=== PATIENT | female | born 1960 | race Caucasian/White ===

== ENCOUNTER 2016-03-25 13:16 | Outpatient (CLI) ==
[2012-09-14 05:37] VITALS: TEMP 97.6
[2016-01-18 21:50] VITALS: BMI 38.0
[2016-03-25 14:20] LABS: PROTHROMBIN TIME 62.9 SEC (9.3-11.0)
== END 2016-03-25 13:17 | disposition home or self-care (01) ==
LOC: LAB 13:16
PROVIDERS: ATTEND Internal Medicine
DX: Z51.81 Encounter for therapeutic drug level monitoring (principal); Z79.01 Long term (current) use of anticoagulants; D70.9 Neutropenia, unspecified; D69.6 Thrombocytopenia, unspecified; I82.403 Acute embolism and thrombosis of unspecified deep veins of lower extremity, bilateral
CPT/HCPCS: 36415; 85610

== ENCOUNTER 2016-03-27 15:24 | Outpatient (CLI) ==
[2012-09-14 05:37] VITALS: TEMP 97.6
[2016-01-18 21:50] VITALS: BMI 38.0
[2016-03-27 16:38] LABS: PROTHROMBIN TIME 67.2 SEC (9.3-11.0)
== END 2016-03-27 15:25 | disposition home or self-care (01) ==
LOC: LAB 15:24
DX: Z51.81 Encounter for therapeutic drug level monitoring (principal); Z79.01 Long term (current) use of anticoagulants
CPT/HCPCS: 36415; 85610

== ENCOUNTER 2016-03-27 17:56 | Emergency (ER) ==
[2016-03-27 18:04] VITALS: BP 113/62; TEMP 99.2; BMI 37.4
--- NOTE | 2016-03-27 19:08 | ED.PDOC ---
General ED Provider: Dr. ROMAN KEATING JR Chief Complaint: Non-specific Complaint Stated Complaint: has an elevated INR and no coumadin since [End]has elevated INR and having abdominal pain with headach[End]patient is complaining that her INR is elevated and she is having abdominal pain with headache and stated that her hemotlogist wants to be called and she is needing something for pain[ End ]99.2 84 20 97% 113/62 11/22 Time Seen by Physician: 19:24 Mode of Arrival: Walk-In Information Source: Patient Exam Limitations: No limitations Primary Care Provider: JAIDEN VINCENT Nursing and Triage Documentation Reviewed and Agree: No Review of Systems - Review Of Systems Constitutional: Reports: Malaise Eyes: Reports: No symptoms Ears, Nose, Mouth, Throat: Reports: Epistaxis Respiratory: Reports: No symptoms Cardiac: Reports: No symptoms GI: Reports: Abdominal pain, Nausea : Reports: No symptoms Musculoskeletal: Reports: Back pain, Other Skin: Reports: No symptoms Neurological: Reports: Other Endocrine: Reports: No symptoms Hematologic/Lymphatic: Reports: No symptoms All Other Systems: Other Past Medical History - Past Medical History Previously Healthy: No Endocrine: Reports: Dyslipidemia, Other (recurrent shingles, ) Cardiovascular: Reports: RI, Hypertension, CHF, A-Fib Respiratory: Reports: PE (pulmonay emboli) Hematological: Reports: Anemia, Other (PE on coumadine) Gastrointestinal: Reports: GERD Genitourinary: Reports: UTI (ecoli with sepsis), Kidney stones, CKD, Other ( ecoli with sepsis) Neuro/Psych: Reports: Migraine, Seizure, Anxiety, Other (recurrent shingles,) Musculoskeletal: Reports: Arthritis Cancer: Reports: None Last Menstrual Period: na Other Pertinent Past Medical History: pacer last week in [place] per her hx - Surgical History General Surgical History: Reports: Tubal ligation, , Cholecystectomy, Tonsillectomy, Pacemaker (pacemaker 04/24/15), Orthopedic (left lateral release left knee), Other (esophageal dilation, hemorrhoidectomy) - Family History Family History: Reports: Unknown - Social History Smoking Status: Never smoker Hx Substance Use: No Alcohol Screening: None - Immunizations Tetanus Shot up to Date: Yes Physical Exam - Physical Exam Appearance: Well-appearing Ill-appearing: Mild Pain Distress: Mild Eyes: CARLTON, EOMI, Conjunctiva clear ENT: Ears normal, Nose normal, Oropharynx normal Neck: Supple Respiratory: Airway patent, Breath sounds clear, Breath sounds equal, Respirations nonlabored Cardiovascular: RRR, Pulses normal, No rub, No murmur GI/: Soft, Tender (NONFOCAL NOT CONSISTENT WITH EXPECTED EXAM WITH GI BLEED- PATIENT REQUESTS EVALUATION DESPITE EXAM) Musculoskeletal: Normal strength, ROM intact, No edema, No calf tenderness Skin: Warm, Dry, Normal color Neurological: Sensation intact, Motor intact, Reflexes intact, Cranial nerves intact, Alert, Oriented Re-Evaluation - Re-Evaluation Time of Re-Evaluation: 19:15 (DR TIANA FINNEGAN MD [phone]) Status: Unchanged ([facility] ( WORKING WITH DR ESTRADA)REQUEST TAKE HER OFF TYLENOL REQUEST AQUAMEPHYTON AND RECHECK INR IN THE MORNING FAX TO [facility]) Critical Care Note - Critical Care Note Total Time (mins): 5 Course - Course Orders, Labs, Meds: Orders Category Date Time Status Phytonadione Inj [Vitamin K] MEDS 03/27/16 19:19 Discontinued 10 mg IM ONCE STA CT ABDOMEN/PELVIS WO CONTRAST Stat RADS 03/27/16 19:[address] HEAD W/O CONTRAST Stat RADS 03/27/16 18:58 Completed Medications Discontinued Medications Generic Name Dose Route Start Last Admin Trade Name Freq PRN Reason Stop Dose Admin Phytonadione 10 mg 03/27/16 19:19 Vitamin K IM 03/27/16 19:20 ONCE STA Vital Signs: Temp Pulse Resp BP Pulse Ox 03/27/16 17:59 99.2 F 84 20 113/62 97 Departure - Departure Time of Disposition: 19:59 Disposition: HOME SELF-CARE Discharge Problem: Anticoagulation excessive Instructions: Hypercoagulation (ED), Warfarin (By mouth) Condition: Good Pt referred to PMD for follow-up: Yes Additional Instructions: RETURN IF WORSENING BLEEDING GET REPEAT PROTIME IN MORNING- RESULTS TO DR HURTADO MAY USE OXYCODONE WITHOUT TYLENOL PRESCRIPTION FOR A FEW GIVEN- NEED TO FOLLOW UP WITH PAIN MANAGEMENT Prescriptions: Oxycodone HCl [Oxycodone] 5 mg PO Q6H PRN #14 tablet PRN Reason: Severe Pain Allergies/Adverse Reactions: Allergies aspirin Adverse Reaction (Verified 03/27/16 18:12) cephalexin monohydrate [From Keflex] Adverse Reaction (Verified 03/27/16 18:12) clarithromycin [From Biaxin] Adverse Reaction (Verified 03/27/16 18:12) ketorolac [From Toradol] Adverse Reaction (Verified 03/27/16 18:12) leflunomide [From Arava] Adverse Reaction (Verified 03/27/16 18:12) NSAIDS (Non-Steroidal Anti-Inflamma Adverse Reaction (Verified 03/27/16 18:12) Penicillins Adverse Reaction (Verified 03/27/16 18:12) radioactive dye for stress test Adverse Reaction (Uncoded 01/18/16 21:52) Home Medications: Ambulatory Orders Folic Acid 1 mg PO DAILY 08/07/13 Diazepam [Valium] 10 mg PO TID 09/25/13 Sucralfate [Carafate] 1 gm PO QID PRN 06/22/14 Clonidine HCl [Catapres] 0.1 mg PO BID PRN 08/17/14 Lisinopril [Zestril] 40 mg PO BID 11/03/14 Metoprolol Tartrate [Lopressor] 25 mg PO BID 12/11/14 Ferrous Sulfate [Iron] 325 mg PO BID 05/24/15 Tizanidine HCl [Zanaflex] 2 mg PO QID PRN 05/24/15 Furosemide [Lasix Tab] 40 mg PO BID PRN 10/02/15 Warfarin Sodium [Coumadin] 10 mg PO DAILY 12/19/15 Methylprednisolone [Medrol Dosepak] 4 mg PO DIRECTED #1 pkg 01/09/16 Oxycodone HCl [Oxycodone] 5 mg PO Q6H PRN #14 tablet 03/27/16
[2016-03-27] MEDS ORDERED: OXYCODONE PO PRN (19:15)
[2016-03-27] MEDS ORDERED: VITAMIN K IM STA (19:19)
--- NOTE | 2016-03-27 19:45 | CT ---
EXAM: CT Head HISTORY: Headache, elevated INR COMPARISON: 01/09/2016 TECHNIQUE: CT head performed without contrast FINDINGS: There is no mass effect, midline shift, or intracranial hemmorhage. Obrien white different iation is preserved. There is no extra-axial collection. There is stable small calcified left fron efrem meningioma measuring 0.8 cm. The ventricles, sulci, and basal cisterns are patent and symmetric. There is no depressed calvarial fracture. The mastoid air cells are clear. The visualized paranas al sinuses are clear. IMPRESSION: 1. No acute intracranial abnormality. 2. Stable small calcified left frontal meningioma
--- NOTE | 2016-03-27 19:55 | CT ---
EXAM: CT abdomen pelvis without contrast HISTORY: Abdominal pain COMPARISON: 12/22/2015 TECHNIQUE: CT abdomen pelvis performed without intravenous contrast. Coronal and sagittal reformat roge images obtained. FINDINGS: Lung bases clear. No free air. No acute abnormalities of the bones. Evaluation organ p arenchyma limited without contrast. There is a cardiac pacer that is incompletely imaged. Liver is enlarged. Liver otherwise unremarkable. Patient status post cholecystectomy. Pancreas appears no rmal. Spleen appears normal. Adrenals appear normal. No hydronephrosis or nephrolithiasis. Stable suspected sub centimeter hyperdense cyst right superior kidney, grossly unchanged from 2013.. No c alculi visualized in the normal course of the ureters. Bladder decompressed and poorly evaluated. Patient status post hysterectomy. Aorta normal in caliber. No lymphadenopathy. Small fat-contain ing hernia. Stomach appears normal. Small duodenal diverticulum. Appendix appears normal. Increas ed submucosal fat deposition in the right colon. Colonic diverticulosis. No inflammatory stranding in the abdomen or pelvis. IMPRESSION: 1. No acute inflammatory process identified in the abdomen pelvis. 2. Colonic diverticulosis. Small duodenal diverticulum. 3. Increased submucosal fat deposition in the colon, a finding be seen in sequela of remote infecti on or inflammation, such as inflammatory bowel disease. 4. Hepatomegaly. 5. Stable suspected hyperdense cyst right superior kidney.
[2016-03-27] MEDS ORDERED: OXYCODONE PO STA (20:06)
[2016-03-27] MEDS ORDERED: ZOFRAN 4 MG/2 ML IM STA (20:20)
[2016-03-27] MEDS ORDERED: DILAUDID 1 MG/ML SYRINGE IM STA (20:20)
== END 2016-03-27 21:00 | disposition home or self-care (01) ==
LOC: ED 17:56
DX: R79.1 Abnormal coagulation profile (principal); R10.9 Unspecified abdominal pain; R51 Headache; Z86.711 Personal history of pulmonary embolism; Z79.01 Long term (current) use of anticoagulants; Z51.81 Encounter for therapeutic drug level monitoring
CPT/HCPCS: 36415; 85610; 96372; 99283

== ENCOUNTER 2016-03-28 12:07 | Outpatient (CLI) ==
[2012-09-14 05:37] VITALS: TEMP 97.6
[2016-03-27 18:04] VITALS: BMI 37.4
== END 2016-03-28 12:08 | disposition home or self-care (01) ==
LOC: LAB 12:07
PROVIDERS: ATTEND Emergency Medicine
DX: Z51.81 Encounter for therapeutic drug level monitoring (principal); Z79.01 Long term (current) use of anticoagulants
CPT/HCPCS: 36415; 85610

== ENCOUNTER 2016-03-28 12:15 | Emergency (ER) ==
[2016-03-28 12:15] VITALS: BMI 37.4
[2016-03-28 12:33] VITALS: BP 114/72; TEMP 101.7
[2016-03-28] MEDS ORDERED: STADOL IM STA (12:41)
[2016-03-28] MEDS ORDERED: PHENERGAN 25 MG/ML VIAL IM STA (12:43)
--- NOTE | 2016-03-28 12:47 | ED.PDOC ---
General ED Provider: Dr. EVANGELISTA PATE-ER Chief Complaint: Rash Stated Complaint: juanita got shingles again Time Seen by Physician: 12:20 Mode of Arrival: Walk-In Information Source: Patient Exam Limitations: No limitations Primary Care Provider: JAIDEN VINCENT Nursing and Triage Documentation Reviewed and Agree: Yes Skin Complaint Exam - Skin Rash/Itching Complaint/Exam Onset/Duration: 36hrs Symptoms Are: Still present Initial Severity: Mild Current Severity: Moderate Location: scalp Potential Exposures: Reports: Unknown Aggravating: Reports: None Alleviating: Reports: None Associated Signs and Symptoms: Denies: Difficulty breathing, Fever, Chills Skin Findings: Present: Vesicles, Lesions Differential Diagnoses: Varicella Zoster Review of Systems - Review Of Systems Constitutional: Reports: No symptoms Eyes: Reports: No symptoms Ears, Nose, Mouth, Throat: Reports: No symptoms Respiratory: Reports: No symptoms Cardiac: Reports: No symptoms GI: Reports: No symptoms : Reports: No symptoms Musculoskeletal: Reports: No symptoms Skin: Reports: Lesions, Rash Neurological: Reports: No symptoms Endocrine: Reports: No symptoms Hematologic/Lymphatic: Reports: No symptoms All Other Systems: Reviewed and Negative Past Medical History - Past Medical History Previously Healthy: No Endocrine: Reports: Dyslipidemia, Other (recurrent shingles, ) Cardiovascular: Reports: [place], Hypertension, CHF, A-Fib Respiratory: Reports: PE (pulmonay emboli) Hematological: Reports: Anemia, Other (PE on coumadine) Gastrointestinal: Reports: GERD Genitourinary: Reports: UTI (ecoli with sepsis), Kidney stones, CKD, Other ( ecoli with sepsis) Neuro/Psych: Reports: Migraine, Seizure, Anxiety, Other (recurrent shingles,) Musculoskeletal: Reports: Arthritis Cancer: Reports: None Last Menstrual Period: n/a Other Pertinent Past Medical History: pacer last week in [place] per her hx - Surgical History General Surgical History: Reports: Tubal ligation, , Cholecystectomy, Tonsillectomy, Pacemaker (pacemaker 04/24/15), Orthopedic (left lateral release left knee), Other (esophageal dilation, hemorrhoidectomy) - Family History Family History: Reports: Unknown - Social History Smoking Status: Never smoker Hx Substance Use: No Alcohol Screening: None Lives: With family Physical Exam - Physical Exam Appearance: Well-appearing, No pain distress, Well-nourished Pain Distress: Moderate Eyes: CARLTON ENT: Ears normal, Nose normal, Oropharynx normal Neck: Supple Respiratory: Airway patent, Breath sounds clear, Breath sounds equal, Respirations nonlabored Cardiovascular: RRR, Pulses normal, No rub, No murmur GI/: Soft, Nontender, No masses, Bowel sounds normal, No Organomegaly Musculoskeletal: Normal strength, ROM intact, No edema, No calf tenderness Skin: Warm, Dry, Normal color Neurological: Sensation intact, Motor intact, Reflexes intact, Cranial nerves intact, Alert, Oriented Psychiatric: Affect appropriate, Mood appropriate Critical Care Note - Critical Care Note Total Time (mins): 0 Course - Course Orders, Labs, Meds: Orders Category Date Time Status Butorphanol Tartrate [Stadol] MEDS 03/28/16 12:41 Discontinued 2 mg IM ONCE STA Promethazine HCl [Phenergan 25 mg/ml Vial] MEDS 03/28/16 12:43 Discontinued 25 mg IM ONCE STA Medications Discontinued Medications Generic Name Dose Route Start Last Admin Trade Name Freq PRN Reason Stop Dose Admin Butorphanol Tartrate 2 mg 03/28/16 12:41 Stadol IM 03/28/16 12:42 ONCE STA Promethazine HCl 25 mg 03/28/16 12:43 Phenergan 25 Mg/Ml Vial IM 03/28/16 12:44 ONCE STA Vital Signs: Temp Pulse Resp BP Pulse Ox 03/28/16 12:16 101.7 F H 75 20 114/72 95 Departure - Departure Time of Disposition: 12:47 Disposition: HOME SELF-CARE Discharge Problem: Shingles Qualifiers: Herpes zoster complications: without complications Qualifier Code: (B02.9) Zoster without complications Instructions: Shingles (ED) Condition: Good Pt referred to PMD for follow-up: Yes Additional Instructions: take your antiviral and your pain meds at home--f/u wtih pcp Allergies/Adverse Reactions: Allergies aspirin Adverse Reaction (Verified 03/28/16 12:36) cephalexin monohydrate [From Keflex] Adverse Reaction (Verified 03/28/16 12:36) clarithromycin [From Biaxin] Adverse Reaction (Verified 03/28/16 12:36) ketorolac [From Toradol] Adverse Reaction (Verified 03/28/16 12:36) leflunomide [From Arava] Adverse Reaction (Verified 03/28/16 12:36) NSAIDS (Non-Steroidal Anti-Inflamma Adverse Reaction (Verified 03/28/16 12:36) Penicillins Adverse Reaction (Verified 03/28/16 12:36) radioactive dye for stress test Adverse Reaction (Uncoded 03/28/16 12:36) Home Medications: Ambulatory Orders Diazepam [Valium] 10 mg PO TID 09/25/13 Sucralfate [Carafate] 1 gm PO QID PRN 06/22/14 Clonidine HCl [Catapres] 0.1 mg PO BID PRN 08/17/14 Lisinopril [Zestril] 40 mg PO BID 11/03/14 Metoprolol Tartrate [Lopressor] 50 mg PO BID 12/11/14 Furosemide [Lasix Tab] 40 mg PO BID PRN 10/02/15 Warfarin Sodium [Coumadin] 10 mg PO DAILY 12/19/15 Oxycodone HCl [Oxycodone] 5 mg PO Q6H PRN #14 tablet 03/27/16 Disposition Discussed With: Patient
== END 2016-03-28 13:35 | disposition home or self-care (01) ==
LOC: ED 12:15
DX: B02.9 Zoster without complications (principal); Z51.81 Encounter for therapeutic drug level monitoring; Z79.01 Long term (current) use of anticoagulants
CPT/HCPCS: 36415; 85610; 96372; 99283

== ENCOUNTER 2016-03-29 14:51 | Outpatient (CLI) ==
[2012-09-14 05:37] VITALS: TEMP 97.6
[2016-03-28 12:15] VITALS: BMI 37.4
[2016-03-29 15:30] LABS: PROTHROMBIN TIME 15.2 SEC (9.3-11.0)
== END 2016-03-29 14:52 | disposition home or self-care (01) ==
LOC: LAB 14:51
PROVIDERS: ATTEND Emergency Medicine
DX: Z51.81 Encounter for therapeutic drug level monitoring (principal); Z79.01 Long term (current) use of anticoagulants
CPT/HCPCS: 36415; 85610

== ENCOUNTER 2016-03-29 15:19 | Emergency (ER) ==
[2016-03-29 15:20] VITALS: BMI 37.4
[2016-03-29 15:29] VITALS: BP 128/82; TEMP 97.2
--- NOTE | 2016-03-29 15:40 | ED.PDOC ---
General ED Provider: Dr. SAMI PAULSON Chief Complaint: Rash Stated Complaint: RASH Time Seen by Physician: 15:22 (SEEN WITH LIBY AT ALL TIMES ) Mode of Arrival: Walk-In Information Source: Patient Exam Limitations: No limitations Primary Care Provider: JAIDEN VINCENT Nursing and Triage Documentation Reviewed and Agree: Yes (HISTORY OF HZV WITH SAME DISTRIBUTION AND CHARACTER ) Skin Complaint Exam - Skin Rash/Itching Complaint/Exam Onset/Duration: RASH SCALP PAINFULL PATCHY HISTORY OF HZV Symptoms Are: Still present Initial Severity: Moderate Current Severity: Moderate Aggravating: Reports: None Alleviating: Reports: None Associated Signs and Symptoms: Denies: Difficulty breathing, Fever, Chills Related History: Similar episode Differential Diagnoses: Varicella Zoster Review of Systems - Review Of Systems Constitutional: Reports: No symptoms Eyes: Reports: No symptoms Ears, Nose, Mouth, Throat: Reports: No symptoms Respiratory: Reports: No symptoms Cardiac: Reports: No symptoms GI: Reports: No symptoms : Reports: No symptoms Musculoskeletal: Reports: No symptoms Skin: Reports: Rash (ONLY ON SCALP), Other Neurological: Reports: No symptoms Endocrine: Reports: No symptoms Hematologic/Lymphatic: Reports: No symptoms All Other Systems: Reviewed and Negative Past Medical History - Past Medical History Previously Healthy: No Endocrine: Reports: Dyslipidemia, Other (recurrent shingles, ) Cardiovascular: Reports: RI, Hypertension, CHF, A-Fib Respiratory: Reports: PE (pulmonay emboli) Hematological: Reports: Anemia, Other (PE on coumadine) Gastrointestinal: Reports: GERD Genitourinary: Reports: UTI (ecoli with sepsis), Kidney stones, CKD, Other ( ecoli with sepsis) Neuro/Psych: Reports: Migraine, Seizure, Anxiety, Other (recurrent shingles,) Musculoskeletal: Reports: Arthritis Cancer: Reports: None Last Menstrual Period: hysterectomy Other Pertinent Past Medical History: pacer last week in [place] per her hx - Surgical History General Surgical History: Reports: Tubal ligation, , Cholecystectomy, Tonsillectomy, Pacemaker (pacemaker 04/24/15), Orthopedic (left lateral release left knee), Other (esophageal dilation, hemorrhoidectomy) - Family History Family History: Reports: Unknown - Social History Smoking Status: Never smoker Hx Substance Use: (frequent ER visits) Alcohol Screening: None Physical Exam - Physical Exam Appearance: Well-appearing, No pain distress, Well-nourished Eyes: CARL[place], EOMI, Conjunctiva clear ENT: Ears normal, Nose normal, Oropharynx normal Respiratory: Airway patent, Breath sounds clear, Breath sounds equal, Respirations nonlabored Cardiovascular: RRR, Pulses normal, No rub, No murmur GI/: Soft, Nontender, No masses, Bowel sounds normal, No Organomegaly Musculoskeletal: Normal strength, ROM intact, No edema, No calf tenderness Skin: Warm, Dry (RASHY PATCHY MACULAR TENDER ) Neurological: Sensation intact, Motor intact, Reflexes intact, Cranial nerves intact, Alert, Oriented Psychiatric: Affect appropriate, Mood appropriate Critical Care Note - Critical Care Note Total Time (mins): 0 Course - Course Vital Signs: Temp Pulse Resp BP Pulse Ox 03/29/16 15:22 97.2 F L 96 H 20 128/82 96 Departure - Departure Time of Disposition: 15:40 Disposition: HOME SELF-CARE Discharge Problem: Varicella-zoster virus infection, Shingles Instructions: Shingles (ED) Condition: Good Pt referred to PMD for follow-up: No Additional Instructions: Please call your Family Physician as soon as possible to schedule a follow-up appointment. Allergies/Adverse Reactions: Allergies aspirin Adverse Reaction (Verified 03/29/16 15:29) cephalexin monohydrate [From Keflex] Adverse Reaction (Verified 03/29/16 15:29) clarithromycin [From Biaxin] Adverse Reaction (Verified 03/29/16 15:29) ketorolac [From Toradol] Adverse Reaction (Verified 03/29/16 15:29) leflunomide [From Arava] Adverse Reaction (Verified 03/29/16 15:29) NSAIDS (Non-Steroidal Anti-Inflamma Adverse Reaction (Verified 03/29/16 15:29) Penicillins Adverse Reaction (Verified 03/29/16 15:29) radioactive dye for stress test Adverse Reaction (Uncoded 03/29/16 15:29) Home Medications: Ambulatory Orders Diazepam [Valium] 10 mg PO TID 09/25/13 Sucralfate [Carafate] 1 gm PO QID PRN 06/22/14 Clonidine HCl [Catapres] 0.1 mg PO BID PRN 08/17/14 Lisinopril [Zestril] 40 mg PO BID 11/03/14 Metoprolol Tartrate [Lopressor] 50 mg PO BID 12/11/14 Furosemide [Lasix Tab] 40 mg PO BID PRN 10/02/15 Warfarin Sodium [Coumadin] 10 mg PO DAILY 12/19/15 Oxycodone HCl [Oxycodone] 5 mg PO Q6H PRN #14 tablet 03/27/16
== END 2016-03-29 15:50 | disposition home or self-care (01) ==
LOC: ED 15:19
DX: B02.9 Zoster without complications (principal); Z51.81 Encounter for therapeutic drug level monitoring; Z79.01 Long term (current) use of anticoagulants
CPT/HCPCS: 36415; 85610; 99283

== ENCOUNTER 2016-04-15 10:52 | Outpatient (CLI) ==
[2012-09-14 05:37] VITALS: TEMP 97.6
[2016-04-15 11:17] LABS: PROTHROMBIN TIME 18.2 SEC (9.3-11.0)
== END 2016-04-15 10:53 ==
LOC: LAB 10:52
PROVIDERS: ATTEND Nurse Practitioner Family
DX: Z51.81 Encounter for therapeutic drug level monitoring (principal); Z79.01 Long term (current) use of anticoagulants
CPT/HCPCS: 36415; 85610

== ENCOUNTER 2016-04-22 12:40 | Outpatient (CLI) ==
[2012-09-14 05:37] VITALS: TEMP 97.6
[2016-04-22 13:32] LABS: PROTHROMBIN TIME 41.5 SEC (9.3-11.0)
== END 2016-04-22 12:41 | disposition home or self-care (01) ==
LOC: LAB 12:40
PROVIDERS: ATTEND Nurse Practitioner Family
DX: Z51.81 Encounter for therapeutic drug level monitoring (principal); Z79.01 Long term (current) use of anticoagulants
CPT/HCPCS: 36415; 85610

== ENCOUNTER 2016-04-23 19:21 | Emergency (ER) ==
[2016-04-23 19:28] VITALS: BP 154/88; TEMP 98.8; BMI 39.2
[2016-04-23] MEDS ORDERED: PHENERGAN 25 MG/ML VIAL IM STA (19:35)
[2016-04-23] MEDS ORDERED: DILAUDID 1 MG/ML SYRINGE IM STA (19:35)
--- NOTE | 2016-04-23 19:38 | ED.PDOC ---
General ED Provider: Dr. EVANGELISTA PATE-ER Chief Complaint: Rash Stated Complaint: juanita got shingles--it hurts--percocet not helping me Time Seen by Physician: 19:25 Mode of Arrival: Walk-In Information Source: Patient Exam Limitations: No limitations Primary Care Provider: JAIDEN VINCENT Nursing and Triage Documentation Reviewed and Agree: Yes Skin Complaint Exam - Skin Rash/Itching Complaint/Exam Onset/Duration: 2 days Symptoms Are: Still present Initial Severity: Moderate Current Severity: Moderate Location: mid thoracic pain Potential Exposures: Reports: Unknown Prior Treatment: acyclovir Aggravating: Reports: None Alleviating: Reports: None Associated Signs and Symptoms: Denies: Difficulty breathing, Fever, Chills Skin Findings: Present: Vesicles Differential Diagnoses: Varicella Zoster, Other Review of Systems - Review Of Systems Constitutional: Reports: No symptoms Eyes: Reports: No symptoms Ears, Nose, Mouth, Throat: Reports: No symptoms Respiratory: Reports: No symptoms Cardiac: Reports: No symptoms GI: Reports: No symptoms : Reports: No symptoms Musculoskeletal: Reports: No symptoms Skin: Reports: Rash Neurological: Reports: No symptoms Endocrine: Reports: No symptoms Hematologic/Lymphatic: Reports: No symptoms All Other Systems: Reviewed and Negative Past Medical History - Past Medical History Previously Healthy: No Endocrine: Reports: Dyslipidemia, Other (recurrent shingles, ) Cardiovascular: Reports: [place], Hypertension, CHF, A-Fib Respiratory: Reports: PE (pulmonay emboli) Hematological: Reports: Anemia, Other (PE on coumadine) Gastrointestinal: Reports: GERD Genitourinary: Reports: UTI (ecoli with sepsis), Kidney stones, CKD, Other ( ecoli with sepsis) Neuro/Psych: Reports: Migraine, Seizure, Anxiety, Other (recurrent shingles,) Musculoskeletal: Reports: Arthritis Cancer: Reports: None Last Menstrual Period: TUBAL LIGATION Other Pertinent Past Medical History: pacer last week in [place] per her hx - Surgical History General Surgical History: Reports: Tubal ligation, , Cholecystectomy, Tonsillectomy, Pacemaker (pacemaker 04/24/15), Orthopedic (left lateral release left knee), Other (esophageal dilation, hemorrhoidectomy) - Family History Family History: Reports: Unknown - Social History Smoking Status: Never smoker Hx Substance Use: No (frequent ER visits) Alcohol Screening: None Lives: With family Physical Exam - Physical Exam Appearance: Well-appearing, No pain distress, Well-nourished Pain Distress: Moderate Eyes: [place], EOMI, Conjunctiva clear ENT: Ears normal, Nose normal, Oropharynx normal Neck: Supple Respiratory: Airway patent, Breath sounds clear, Breath sounds equal, Respirations nonlabored Cardiovascular: RRR, Pulses normal, No rub, No murmur GI/: Soft, Nontender, No masses, Bowel sounds normal, No Organomegaly Musculoskeletal: Normal strength, ROM intact, No edema, No calf tenderness Skin: Warm, Dry, Normal color Neurological: Sensation intact, Motor intact, Reflexes intact, Cranial nerves intact, Alert, Oriented Psychiatric: Affect appropriate, Mood appropriate Critical Care Note - Critical Care Note Total Time (mins): 0 Course - Course Orders, Labs, Meds: Orders Category Date Time Status Hydromorphone HCl [Dilaudid 1 mg/ml Syringe] MEDS 04/23/16 19:35 Stat 1 mg IM ONCE STA Promethazine HCl [Phenergan 25 mg/ml Vial] MEDS 04/23/16 19:35 Stat 25 mg IM ONCE STA Medications Generic Name Dose Route Start Last Admin Trade Name Freq PRN Reason Stop Dose Admin Hydromorphone HCl 1 mg 04/23/16 19:35 Dilaudid 1 Mg/Ml Syringe IM 04/23/16 19:36 ONCE STA Promethazine HCl 25 mg 04/23/16 19:35 Phenergan 25 Mg/Ml Vial IM 04/23/16 19:36 ONCE STA Vital Signs: Temp Pulse Resp BP Pulse Ox 04/23/16 19:23 98.8 F 81 16 154/88 H 97 Departure - Departure Time of Disposition: 19:37 Disposition: HOME SELF-CARE Discharge Problem: Herpes zoster Qualifiers: Herpes zoster complications: unspecified herpes zoster complication Qualifier Code: (B02.8) Zoster with other complications Instructions: Shingles (ED) Condition: Good Pt referred to PMD for follow-up: Yes Additional Instructions: f/u with pcp Allergies/Adverse Reactions: Allergies aspirin Adverse Reaction (Verified 04/23/16 19:28) cephalexin monohydrate [From Keflex] Adverse Reaction (Verified 04/23/16 19:28) clarithromycin [From Biaxin] Adverse Reaction (Verified 04/23/16 19:28) ketorolac [From Toradol] Adverse Reaction (Verified 04/23/16 19:28) leflunomide [From Arava] Adverse Reaction (Verified 04/23/16 19:28) NSAIDS (Non-Steroidal Anti-Inflamma Adverse Reaction (Verified 04/23/16 19:28) Penicillins Adverse Reaction (Verified 04/23/16 19:28) radioactive dye for stress test Adverse Reaction (Uncoded 04/23/16 19:28) Home Medications: Ambulatory Orders Diazepam [Valium] 10 mg PO TID 09/25/13 Clonidine HCl [Catapres] 0.1 mg PO BID PRN 08/17/14 Lisinopril [Zestril] 40 mg PO BID 11/03/14 Metoprolol Tartrate [Lopressor] 50 mg PO BID 12/11/14 Furosemide [Lasix Tab] 40 mg PO BID PRN 10/02/15 Warfarin Sodium [Coumadin] 10 mg PO DAILY 12/19/15 Oxycodone HCl [Oxycodone] 5 mg PO Q6H PRN #14 tablet 03/27/16 Disposition Discussed With: Patient
== END 2016-04-23 20:00 | disposition home or self-care (01) ==
LOC: ED 19:21
DX: B02.8 Zoster with other complications (principal); Z79.01 Long term (current) use of anticoagulants; Z79.899 Other long term (current) drug therapy
CPT/HCPCS: 96372; 99283

== ENCOUNTER 2016-04-29 20:18 | Emergency (ER) ==
[2016-04-29 20:25] VITALS: BP 157/87; TEMP 98.8; BMI 38.2
--- NOTE | 2016-04-29 21:20 | ED.PDOC ---
General ED Provider: Dr. JOSE TOLENTINO Chief Complaint: Rash Stated Complaint: Patient states she has chronic rash from shingles. Took more of her percoet now out. Getting a refill of prescription tomorrow. Time Seen by Physician: 21:18 Mode of Arrival: Walk-In Information Source: Patient Primary Care Provider: JAIDEN VINCENT Nursing and Triage Documentation Reviewed and Agree: Yes Skin Complaint Exam - Skin Rash/Itching Complaint/Exam Onset/Duration: months Symptoms Are: Still present Initial Severity: Moderate Current Severity: Moderate Location: Lower back Potential Exposures: Reports: Other (shingles) Prior Treatment: Acyclorvir, Gancyclovir Aggravating: Reports: Heat, Clothing Alleviating: Reports: None Associated Signs and Symptoms: Denies: Difficulty breathing, Fever, Chills Related History: Similar episode Skin Findings: Present: Lesions (2cm vessicular lesion on the mid lower back ) Body Picture: 1 - 2 cm vessicular lesion on the mid lower back. Differential Diagnoses: Viral Exanthema Review of Systems - Review Of Systems Constitutional: Reports: No symptoms Eyes: Reports: No symptoms Ears, Nose, Mouth, Throat: Reports: No symptoms Respiratory: Reports: No symptoms Cardiac: Reports: No symptoms GI: Reports: No symptoms : Reports: No symptoms Musculoskeletal: Reports: No symptoms Skin: Reports: Rash Neurological: Reports: No symptoms Endocrine: Reports: No symptoms Hematologic/Lymphatic: Reports: No symptoms All Other Systems: Reviewed and Negative Past Medical History - Past Medical History Previously Healthy: No Endocrine: Reports: Dyslipidemia, Other (recurrent shingles, ) Cardiovascular: Reports: CT, Hypertension, CHF, A-Fib Respiratory: Reports: PE (pulmonay emboli) Hematological: Reports: Anemia, Other (PE on coumadine) Gastrointestinal: Reports: GERD Genitourinary: Reports: UTI (ecoli with sepsis), Kidney stones, CKD, Other ( ecoli with sepsis) Neuro/Psych: Reports: Migraine, Seizure, Anxiety, Other (recurrent shingles,) Musculoskeletal: Reports: Arthritis Cancer: Reports: None Last Menstrual Period: 5 yrs ago Other Pertinent Past Medical History: pacer last week in [place] per her hx - Surgical History General Surgical History: Reports: Tubal ligation, , Cholecystectomy, Tonsillectomy, Pacemaker (pacemaker 04/24/15), Orthopedic (left lateral release left knee), Other (esophageal dilation, hemorrhoidectomy) - Family History Family History: Reports: Unknown - Social History Smoking Status: Never smoker Hx Substance Use: No (frequent ER visits) Alcohol Screening: None - Immunizations Tetanus Shot up to Date: Yes Physical Exam - Physical Exam Appearance: Well-appearing, Obese Pain Distress: Mild Neck: Supple Respiratory: Airway patent, Breath sounds clear, Breath sounds equal, Respirations nonlabored Cardiovascular: RRR, Pulses normal, No rub, No murmur GI/: Soft, Nontender, No masses, Bowel sounds normal, No Organomegaly Musculoskeletal: Normal strength, ROM intact, No edema, No calf tenderness Neurological: Sensation intact, Motor intact, Reflexes intact Psychiatric: Anxious Critical Care Note - Critical Care Note Total Time (mins): 0 Course - Course Vital Signs: Temp Pulse Resp BP Pulse Ox 04/29/16 20:19 98.8 F 81 20 157/87 H 96 Departure - Departure Time of Disposition: 21:42 Disposition: HOME SELF-CARE Discharge Problem: Herpes zoster Qualifiers: Herpes zoster complications: without complications Qualifier Code: (B02.9) Zoster without complications Instructions: Shingles (ED) Condition: Fair Pt referred to PMD for follow-up: Yes Additional Instructions: Follow up with your PCP in the Morning Allergies/Adverse Reactions: Allergies aspirin Adverse Reaction (Verified 04/29/16 20:24) cephalexin monohydrate [From Keflex] Adverse Reaction (Verified 04/29/16 20:24) clarithromycin [From Biaxin] Adverse Reaction (Verified 04/29/16 20:24) ketorolac [From Toradol] Adverse Reaction (Verified 04/29/16 20:24) leflunomide [From Arava] Adverse Reaction (Verified 04/29/16 20:24) NSAIDS (Non-Steroidal Anti-Inflamma Adverse Reaction (Verified 04/29/16 20:24) Penicillins Adverse Reaction (Verified 04/29/16 20:24) radioactive dye for stress test Adverse Reaction (Uncoded 04/29/16 20:24) Home Medications: Ambulatory Orders Diazepam [Valium] 10 mg PO TID 09/25/13 Clonidine HCl [Catapres] 0.1 mg PO BID PRN 08/17/14 Lisinopril [Zestril] 40 mg PO BID 11/03/14 Metoprolol Tartrate [Lopressor] 50 mg PO BID 12/11/14 Furosemide [Lasix Tab] 40 mg PO BID PRN 10/02/15 Warfarin Sodium [Coumadin] 10 mg PO DAILY 12/19/15 Oxycodone HCl [Oxycodone] 10 mg PO Q6H PRN 04/29/16 Disposition Discussed With: Patient
== END 2016-04-29 21:45 | disposition home or self-care (01) ==
LOC: ED 20:18
DX: B02.9 Zoster without complications (principal)
CPT/HCPCS: 99282

== ENCOUNTER 2016-05-15 13:18 | Outpatient (CLI) ==
[2012-09-14 05:37] VITALS: TEMP 97.6
[2016-05-15 13:57] LABS: PROTHROMBIN TIME 27.7 SEC (9.3-11.0)
== END 2016-05-15 13:19 | disposition home or self-care (01) ==
LOC: LAB 13:18
PROVIDERS: ATTEND Nurse Practitioner Family
DX: Z51.81 Encounter for therapeutic drug level monitoring (principal); Z79.01 Long term (current) use of anticoagulants
CPT/HCPCS: 36415; 85610

== ENCOUNTER 2016-06-03 12:47 | Outpatient (CLI) ==
[2012-09-14 05:37] VITALS: TEMP 97.6
[2016-06-03 14:25] LABS: PROTHROMBIN TIME 43.6 SEC (9.3-11.0)
== END 2016-06-03 12:48 | disposition home or self-care (01) ==
LOC: LAB 12:47
PROVIDERS: ATTEND Nurse Practitioner Family
DX: Z51.81 Encounter for therapeutic drug level monitoring (principal); Z79.01 Long term (current) use of anticoagulants
CPT/HCPCS: 36415; 85610

== ENCOUNTER 2016-06-16 14:51 | Outpatient (CLI) ==
[2012-09-14 05:37] VITALS: TEMP 97.6
[2016-06-16 15:29] LABS: PROTHROMBIN TIME 15.3 SEC (9.3-11.0)
== END 2016-06-16 14:52 | disposition home or self-care (01) ==
LOC: LAB 14:51
PROVIDERS: ATTEND Nurse Practitioner Family
DX: Z51.81 Encounter for therapeutic drug level monitoring (principal); Z79.01 Long term (current) use of anticoagulants
CPT/HCPCS: 36415; 85610

== ENCOUNTER 2016-06-29 09:28 | Outpatient (CLI) ==
[2012-09-14 05:37] VITALS: TEMP 97.6
[2016-06-29 09:50] LABS: PROTHROMBIN TIME 16.2 SEC (9.3-11.0)
== END 2016-06-29 09:29 | disposition home or self-care (01) ==
LOC: LAB 09:28
PROVIDERS: ATTEND Nurse Practitioner Family
DX: Z51.81 Encounter for therapeutic drug level monitoring (principal); Z79.01 Long term (current) use of anticoagulants
CPT/HCPCS: 36415; 85610

== ENCOUNTER 2016-06-29 10:29 | Emergency (ER) ==
[2016-06-29 10:37] VITALS: BP 110/75; TEMP 98.7; BMI 38.1
--- NOTE | 2016-06-29 10:54 | ED.PDOC ---
General ED Provider: Dr. ROMAN KEATING JR Chief Complaint: Non-specific Complaint Stated Complaint: patient states she is having sharp pains to left side of chest and states her lower lead wire is on a nerve. states she also occassionally has some "other" chest pains with it. states since last night she has been "filling with fluid" making her feel full. states she has a dry cough[ End ]98.7 72 16 98% 110/75 11/22 states base weight is 201 and she is 226 today lungs clear pulses strong Time Seen by Physician: 10:51 Mode of Arrival: Walk-In Information Source: Patient Exam Limitations: No limitations Primary Care Provider: JAIDEN VINCENT Nursing and Triage Documentation Reviewed and Agree: No Review of Systems - Review Of Systems Constitutional: Reports: Malaise Eyes: Reports: No symptoms Ears, Nose, Mouth, Throat: Reports: No symptoms Respiratory: Reports: No symptoms Cardiac: Reports: Chest pain, Other GI: Reports: No symptoms : Reports: No symptoms Musculoskeletal: Reports: Muscle pain Skin: Reports: No symptoms Neurological: Reports: Anxiety, Tingling, Other Endocrine: Reports: No symptoms Hematologic/Lymphatic: Reports: No symptoms All Other Systems: Other Past Medical History - Past Medical History Previously Healthy: No Endocrine: Reports: Dyslipidemia, Other (recurrent shingles, ) Cardiovascular: Reports: [place], Hypertension, CHF, A-Fib Respiratory: Reports: PE (pulmonay emboli) Hematological: Reports: Anemia, Other (PE on coumadine) Gastrointestinal: Reports: GERD Genitourinary: Reports: UTI (ecoli with sepsis), Kidney stones, CKD, Other ( ecoli with sepsis) Neuro/Psych: Reports: Migraine, Seizure, Anxiety, Other (recurrent shingles,) Musculoskeletal: Reports: Arthritis Cancer: Reports: None Last Menstrual Period: n/a Other Pertinent Past Medical History: pacer last week in [place] per her hx - Surgical History General Surgical History: Reports: Tubal ligation, , Cholecystectomy, Tonsillectomy, Pacemaker (pacemaker 04/24/15), Orthopedic (left lateral release left knee), Other (esophageal dilation, hemorrhoidectomy) - Family History Family History: Reports: Unknown - Social History Smoking Status: Never smoker Hx Substance Use: No (frequent ER visits) Alcohol Screening: None Physical Exam - Physical Exam Appearance: Well-appearing, Obese Pain Distress: Moderate Eyes: CARLTON, EOMI, Conjunctiva clear ENT: Ears normal, Nose normal, Oropharynx normal Neck: Supple Respiratory: Airway patent, Breath sounds clear, Breath sounds equal, Respirations nonlabored Cardiovascular: RRR (onpalpation compains of jolting sensation at pacer lead unable toverify source), Pulses normal, No rub, No murmur GI/: Soft, Nontender, No masses, Bowel sounds normal, No Organomegaly Musculoskeletal: Normal strength, ROM intact, No edema, No calf tenderness Skin: Warm, Dry, Normal color Neurological: Sensation intact, Motor intact, Reflexes intact, Cranial nerves intact, Alert, Oriented Psychiatric: Anxious, Depressed Interpretation - EKG Interpretation Time of EKG #1: 11:39 Rhythm: Other (paced 70) ST Segment: Normal Physician Notification - Case Discussed Physician Notified: Dr Maki [phone] Time of Notification: 10:54 (if BNP is OK follow up this week in office) Critical Care Note - Critical Care Note Total Time (mins): 5 Course - Course Orders, Labs, Meds: Lab Review 06/29/16 11:40 B-Natriuretic Peptide 21 Orders Category Date Time Status EKG-(ED ONLY) Stat CARDIO 06/29/16 11:23 Completed BNP [B-TYPE NATRIURETIC PEPTIDE] Stat LAB 06/29/16 11:40 Completed CHEST, 2 VIEWS PA & LAT Stat RADS 06/29/16 11:31 Completed Vital Signs: Temp Pulse Resp BP Pulse Ox 06/29/16 10:30 98.7 F 72 16 110/75 98 MIRACLE Risk Score MIRACLE Risk Score: Risk Score Odds of by 30D 0 0.1 (0.1-0.2) 1 0.3 (0.2-0.3) 2 0.4 (0.3-0.5) 3 0.7 (0.6-0.9) 4 1.2 (1.0-1.5) 5 2.2 (1.9-2.6) 6 3.0 (2.5-3.6) 7 4.8 (3.8-6.1) Departure - Departure Time of Disposition: 12:27 Disposition: HOME SELF-CARE Discharge Problem: Pacemaker syndrome, Chest pain in adult Instructions: Thoracic Pain (ED), Chest Wall Pain (ED) Condition: Good Pt referred to PMD for follow-up: Yes Additional Instructions: follow up with Dr Maki this week or early next week-call for appontment weight gain is not reflected by lung congestion or elevated BNP need to discuss pacemaker issues with cardiology Allergies/Adverse Reactions: Allergies aspirin Adverse Reaction (Verified 06/29/16 10:40) cephalexin monohydrate [From Keflex] Adverse Reaction (Verified 06/29/16 10:40) clarithromycin [From Biaxin] Adverse Reaction (Verified 06/29/16 10:40) ketorolac [From Toradol] Adverse Reaction (Verified 06/29/16 10:40) leflunomide [From Arava] Adverse Reaction (Verified 06/29/16 10:40) NSAIDS (Non-Steroidal Anti-Inflamma Adverse Reaction (Verified 06/29/16 10:40) Penicillins Adverse Reaction (Verified 06/29/16 10:40) radioactive dye for stress test Adverse Reaction (Uncoded 06/29/16 10:40) Home Medications: Ambulatory Orders Diazepam [Valium] 10 mg PO TID 09/25/13 Clonidine HCl [Catapres] 0.1 mg PO BID PRN 08/17/14 Lisinopril [Zestril] 40 mg PO BID 11/03/14 Metoprolol Tartrate [Lopressor] 50 mg PO BID 12/11/14 Furosemide [Lasix Tab] 40 mg PO BID PRN 10/02/15 Warfarin Sodium [Coumadin] 10 mg PO DAILY 12/19/15 Oxycodone HCl [Oxycodone] 10 mg PO Q6H PRN 04/29/16
--- NOTE | 2016-06-29 13:33 | DI ---
EXAM: Two x-rays of the chest. Comparison: 12/22/2015. Reason for exam: Chest pain post pacemaker. FINDINGS: Operative changes are seen after implanted dual lead intracardiac device. No pneumothora x, pleural effusion, or focal consolidation. The cardiac silhouette is not enlarged. The imaged os seous structures are unremarkable without acute fracture. Impression: No acute cardiopulmonary process.
== END 2016-06-29 13:04 | disposition home or self-care (01) ==
LOC: ED 10:29
DX: I97.190 Other postprocedural cardiac functional disturbances following cardiac surgery (principal); R07.9 Chest pain, unspecified; I50.9 Heart failure, unspecified; I10 Essential (primary) hypertension; E78.5 Hyperlipidemia, unspecified; I25.2 Old myocardial infarction; Z79.01 Long term (current) use of anticoagulants; Z79.899 Other long term (current) drug therapy; Z86.711 Personal history of pulmonary embolism; Z51.81 Encounter for therapeutic drug level monitoring
CPT/HCPCS: 36415; 83880; 85610; 93005; 93010; 99283

== ENCOUNTER 2016-07-15 12:47 | Outpatient (CLI) ==
[2012-09-14 05:37] VITALS: TEMP 97.6
== END 2016-07-15 12:48 | disposition home or self-care (01) ==
LOC: LAB 12:47
PROVIDERS: ATTEND Nurse Practitioner Family
DX: Z51.81 Encounter for therapeutic drug level monitoring (principal); Z79.01 Long term (current) use of anticoagulants
CPT/HCPCS: 36415; 85610

== ENCOUNTER 2016-07-23 14:21 | Outpatient (CLI) ==
[2012-09-14 05:37] VITALS: TEMP 97.6
[2016-07-23 15:03] LABS: PROTHROMBIN TIME 36.5 SEC (9.3-11.0)
== END 2016-07-23 14:22 | disposition home or self-care (01) ==
LOC: LAB 14:21
PROVIDERS: ATTEND Nurse Practitioner Family
DX: Z51.81 Encounter for therapeutic drug level monitoring (principal); Z79.01 Long term (current) use of anticoagulants
CPT/HCPCS: 36415; 85610

== ENCOUNTER 2016-07-31 13:25 | Outpatient (CLI) ==
[2012-09-14 05:37] VITALS: TEMP 97.6
[2016-07-31 14:32] LABS: PROTHROMBIN TIME 85.9 SEC (9.3-11.0)
== END 2016-07-31 13:26 | disposition home or self-care (01) ==
LOC: LAB 13:25
PROVIDERS: ATTEND Nurse Practitioner Family
DX: Z51.81 Encounter for therapeutic drug level monitoring (principal); Z79.01 Long term (current) use of anticoagulants
CPT/HCPCS: 36415; 85610

== ENCOUNTER 2016-08-01 01:48 | Emergency (ER) ==
[2016-08-01 01:49] VITALS: BMI 38.1
[2016-08-01 02:05] VITALS: BP 93/66; TEMP 98.2
[2016-08-01] MEDS ORDERED: ZOFRAN 4 MG/2 ML IM STA (02:23)
[2016-08-01] MEDS ORDERED: DILAUDID 1 MG/ML SYRINGE IM STA ×2 (02:23→04:30)
[2016-08-01 02:52] LABS: BASOPHILS % (AUTO) 0.8 % (0.0-3.0); EOSINOPHILS # (AUTO) 0.1 K/ul (0.0-0.7); EOSINOPHILS % (AUTO) 1.9 % (0.0-7.0); HEMATOCRIT 33.7 % (37.0-47.0); HEMOGLOBIN 11.2 g/dl (12.0-16.0); IMMATURE GRANULOCYTE % (AUTO) 0.5 % (0.0-5.0); LYMPHOCYTES # (AUTO) 1.5 K/uL (0.60-3.4); LYMPHOCYTES % (AUTO) 39.9 (10.0-50.0); MEAN CORPUSCULAR HEMOGLOBIN 30.4 pg (27.0-31.0); MEAN CORPUSCULAR HGB CONC 33.2 (31.8-35.4); MEAN CORPUSCULAR VOLUME 91.6 fl (81.0-99.0); MONOCYTES # (AUTO) 0.4 K/uL (0.4-2.0); MONOCYTES % (AUTO) 11.1 (0-10); NEUTROPHILS # (AUTO) 1.7 K/ul (2.0-6.9); NEUTROPHILS % (AUTO) 45.8; PLATELET COUNT 192 10^3/uL (140-440); RED BLOOD COUNT 3.68 10^6/ul (4.20-5.40); WHITE BLOOD COUNT 3.78 K/ul (4.6-10.2)
[2016-08-01 03:09] LABS: ALBUMIN 3.6 g/dL (3.4-5.0); ALBUMIN/GLOBULIN RATIO 1.16; ANION GAP 12.9; BILIRUBIN,TOTAL 0.25 mg/dL (0.00-1.20); BUN/CREATININE RATIO 14.09; CREATININE 1.49 mg/dL (0.60-1.30); POTASSIUM 3.9 mmol/L (3.5-5.10); TOTAL PROTEIN 6.7 g/dL (6.4-8.2)
[2016-08-01 03:39] LABS: PROTHROMBIN TIME 101.6 SEC (9.3-11.0)
[2016-08-01] MEDS ORDERED: MEPHYTON PO STA (03:47)
--- NOTE | 2016-08-01 03:50 | ED.PDOC ---
General ED Provider: Dr. EVANGELISTA PATE-ER Chief Complaint: Abnormal Labs Stated Complaint: i had an high inr but i coldnt come in bcause i had to go to graduation Time Seen by Physician: 01:50 Mode of Arrival: Walk-In Information Source: Patient Exam Limitations: No limitations Primary Care Provider: JAIDEN VINCENT Nursing and Triage Documentation Reviewed and Agree: Yes Miscellaneous Complaint Exam - Complex/Multi-System Complaint/Exam Onset/Duration: today Symptoms Are: Still present Initial Severity: Mild Current Severity: Mild Location of Pain: no pain Associated Signs and Symptoms: Reports: Melena, Anticoagulation Therapy. Denies : Decreased responsiveness, Confusion, Agitation, Dizziness, Weakness, Syncope, Headache, Short of air, Cough, Wheezing, Hemoptysis, Chest pain, Palpitations, Edema, Nausea, Vomiting, Diarrhea, Abdominal pain, Back pain, Dysuria, Hematemesis, Decreased oral intake, Fever, Diaphoresis, Immunocompromised, Recent medication changes, Indwelling medical director/head team physician, Prior MRSA, Prior VRE, Recent trauma, Remote trauma Recent Echo/LV Function: No Respiratory Distress: None JVD Present: No Tachypnea Present: No Stridor Present: No Abdominal Findings: Present: Normal findings Glascow Coma Scale (see protocol): 15 Meningeal Signs Positive: No Focal Weakness: Present: None Focal Sensory Loss: Present: None Gait: Normal Gag Reflex Present: Yes Babinski Sign: Negative Right, Negative Left Skin Findings: Present: Normal findings Joint Swelling Present: No In-Dwelling Device Present: No Differential Diagnosis: Other Review of Systems - Review Of Systems Constitutional: Reports: No symptoms Eyes: Reports: No symptoms Ears, Nose, Mouth, Throat: Reports: No symptoms Respiratory: Reports: No symptoms Cardiac: Reports: No symptoms GI: Reports: Rectal bleeding : Reports: No symptoms Musculoskeletal: Reports: No symptoms Skin: Reports: No symptoms Neurological: Reports: No symptoms Endocrine: Reports: No symptoms Hematologic/Lymphatic: Reports: Easy bleeding All Other Systems: Reviewed and Negative Past Medical History - Past Medical History Previously Healthy: No Endocrine: Reports: Dyslipidemia, Other (recurrent shingles, ) Cardiovascular: Reports: [place], Hypertension, CHF, A-Fib Respiratory: Reports: PE (pulmonay emboli) Hematological: Reports: Anemia, Other (PE on coumadine) Gastrointestinal: Reports: GERD Genitourinary: Reports: UTI (ecoli with sepsis), Kidney stones, CKD, Other ( ecoli with sepsis) Neuro/Psych: Reports: Migraine, Seizure, Anxiety, Other (recurrent shingles,) Musculoskeletal: Reports: Arthritis Cancer: Reports: None Last Menstrual Period: PT HAS HAD A HYSTERECTOMY Other Pertinent Past Medical History: pacer last week in [place] per her hx - Surgical History General Surgical History: Reports: Tubal ligation, , Cholecystectomy, Tonsillectomy, Pacemaker (pacemaker 04/24/15), Orthopedic (left lateral release left knee), Other (esophageal dilation, hemorrhoidectomy) - Family History Family History: Reports: Unknown - Social History Smoking Status: Never smoker Hx Substance Use: No (frequent ER visits) Alcohol Screening: None Lives: With family - Immunizations Tetanus Shot up to Date: Yes Physical Exam - Physical Exam Appearance: Well-appearing, No pain distress, Well-nourished Eyes: CARL[place], EOMI, Conjunctiva clear ENT: Ears normal, Nose normal, Oropharynx normal Neck: Supple Respiratory: Airway patent, Breath sounds clear, Breath sounds equal, Respirations nonlabored Cardiovascular: RRR, Pulses normal, No rub, No murmur GI/: Soft, Nontender, No masses, Bowel sounds normal, No Organomegaly Musculoskeletal: Normal strength, ROM intact, No edema, No calf tenderness Skin: Warm Neurological: Sensation intact, Motor intact, Reflexes intact, Cranial nerves intact, Alert, Oriented Psychiatric: Affect appropriate, Mood appropriate Critical Care Note - Critical Care Note Total Time (mins): 0 Course - Course Hematology/Chemistry: 08/01/16 02:48 08/01/16 02:48 Orders, Labs, Meds: Lab Review 08/01/16 02:48 WBC 3.78 L RBC 3.68 L Hgb 11.2 L Hct 33.7 L MCV 91.6 MCH 30.4 MCHC 33.2 RDW Coeff of Carmelina 13.8 Plt Count 192 Immature Gran % (Auto) 0.5 Neut % (Auto) 45.8 Lymph % (Auto) 39.9 Tama % (Auto) 11.1 H Eos % (Auto) 1.9 Baso % (Auto) 0.8 Immature Gran # (Auto) 0.0 Neut # 1.7 L Lymph # 1.5 Tama # 0.4 Eos # 0.1 Baso # 0.0 PT 101.6 H D INR 9.86 H* Sodium 141 Potassium 3.9 Chloride 110 H Carbon Dioxide 22 Anion Gap 12.9 BUN 21 H Creatinine 1.49 H Estimated GFR (MDRD) 36.00 BUN/Creatinine Ratio 14.09 Glucose 98 Calcium 9.0 Total Bilirubin 0.25 AST 30 ALT 22 Alkaline Phosphatase 82 Total Protein 6.7 Albumin 3.6 Globulin 3.1 Albumin/Globulin Ratio 1.16 Orders Category Date Time Status ED IV/MEDIPORT/POWERPORT .ONCE EMERGENCY 08/01/16 03:46 Active CBC W/ AUTO DIFF Stat LAB 08/01/16 02:48 Completed COMPREHENSIVE METABOLIC PANEL Stat LAB 08/01/16 02:48 Completed PT WITH INR Stat LAB 08/01/16 02:48 Completed 0.9 % Sodium Chloride [Saline Flush] MEDS 08/01/16 03:46 Ordered 1 syr IVF PRN PRN Hydromorphone HCl [Dilaudid 1 mg/ml Syringe] MEDS 08/01/16 02:23 Discontinued 1 mg IM ONCE STA Ondansetron HCl/Pf [Zofran 4 mg/2 ml] MEDS 08/01/16 02:23 Discontinued 4 mg IM ONCE STA Phytonadione [Mephyton] MEDS 08/01/16 03:47 Discontinued 5 mg PO ONCE STA Sodium Chloride 0.9% [Sodium Chloride] 1,000 ml MEDS 08/01/16 03:46 Active IV 100 mls/hr CT KNEE LEFT WITHOUT CONTRAST Stat RADS 08/01/16 02:23 Taken Medications Generic Name Dose Route Start Last Admin Trade Name Freq PRN Reason Stop Dose Admin Sodium Chloride 1,000 mls @ 100 mls/hr 08/01/16 03:46 Sodium Chloride IV 08/01/16 13:45 .Q10H STA Sodium Chloride 1 syr 08/01/16 03:46 Saline Flush IVF PRN PRN To flush IV Discontinued Medications Generic Name Dose Route Start Last Admin Trade Name Freq PRN Reason Stop Dose Admin Hydromorphone HCl 1 mg 08/01/16 02:23 08/01/16 02:59 Dilaudid 1 Mg/Ml Syringe IM 08/01/16 02:24 1 mg ONCE STA Administration Ondansetron HCl 4 mg 08/01/16 02:23 08/01/16 02:59 Zofran 4 Mg/2 Ml IM 08/01/16 02:24 4 mg ONCE STA Administration Phytonadione 5 mg 08/01/16 03:47 Mephyton PO 08/01/16 03:48 ONCE STA Vital Signs: Temp Pulse Resp BP Pulse Ox 08/01/16 01:49 98.2 F 76 18 93/66 98 Departure - Departure Time of Disposition: 03:51 Disposition: TSF SHORT-TRM HOSP Discharge Problem: Supratherapeutic international normalized ratio (INR) Gastrointestinal hemorrhage Qualifiers: GI bleed type/associated pathology: melena Qualifier Code: (K92.1) Melena Instructions: Elevated INR (ED) Condition: Fair Pt referred to PMD for follow-up: Yes Allergies/Adverse Reactions: Allergies aspirin Adverse Reaction (Verified 08/01/16 01:57) cephalexin monohydrate [From Keflex] Adverse Reaction (Verified 08/01/16 01:57) clarithromycin [From Biaxin] Adverse Reaction (Verified 08/01/16 01:57) ketorolac [From Toradol] Adverse Reaction (Verified 08/01/16 01:57) leflunomide [From Arava] Adverse Reaction (Verified 08/01/16 01:57) NSAIDS (Non-Steroidal Anti-Inflamma Adverse Reaction (Verified 08/01/16 01:57) Penicillins Adverse Reaction (Verified 08/01/16 01:57) radioactive dye for stress test Adverse Reaction (Uncoded 08/01/16 01:57) Home Medications: Ambulatory Orders Diazepam [Valium] 10 mg PO TID 09/25/13 Clonidine HCl [Catapres] 0.1 mg PO BID PRN 08/17/14 Lisinopril [Zestril] 40 mg PO BID 11/03/14 Metoprolol Tartrate [Lopressor] 50 mg PO BID 12/11/14 Furosemide [Lasix Tab] 40 mg PO DAILY 10/02/15 Warfarin Sodium [Coumadin] 10 mg PO EVERY OTHER DAY 12/19/15 Oxycodone HCl [Oxycodone] 10 mg PO Q6H PRN 04/29/16 Warfarin Sodium [Coumadin] 7.5 mg PO EVERY OTHER DAY 08/01/16 Transfer Form Completed: Yes Disposition Discussed With: Patient, Family
[2016-08-01] MEDS ORDERED: LIDOCAINE 1 % AMP 5 ML (SUTURES) ONE (03:57)
--- NOTE | 2016-08-01 04:00 | CT ---
Exam: CT of the left lower extremity without contrast History: Left knee pain Technique: [address] of the left knee with multiplanar reformations FINDINGS: Tricompartmental osteoarthritic change relatively advanced. There is medial joint space narrowing and marginal osteophytosis. Joint surface sclerosis is present mostly medially. Small mo derate joint effusion. No fracture line. No acute peripheral soft tissue abnormalities. Impression: 1. Severe tricompartmental osteoarthritic change 2. Nonspecific joint effusion 3. No acute bony abnormalities
[2016-08-01] MEDS: SODIUM CHLORIDE 1,000 ML IV STA ×2 (04:27→04:36)
--- NOTE | 2016-08-01 04:27 | ED.PDOC ---
Procedures - IV/Art Line Insertion Location: left wrist Type of Line: Peripheral IV Invasive Line/IV Catheter Gauge: 22 Number of Attempts: 1 Blood Return Positive: Yes Invasive Line/IV Flushes Without Difficulty: Yes Conscious Sedation - Pre-op Assessment Weight: 229 lb Surgical History: pacemaker 04/24/15--hemorrhoid--left knee--gall bladder-- tonsils--tubal-- pulmonay emboli --HYSTERECTOMY 12/02/15. - Medical History Past Medical History: Hypertension, Anemia, High Lipids, [place], CHF, A-FIb, GERD, Kidney Stones, Kidney Disease, Anxiety, Migraines, Arthritis, CAD Other History: recurrent shingles, ecoli with sepsis, [id number]
[2016-08-01] MEDS ORDERED: DILAUDID 1 MG/ML SYRINGE ONE (05:31)
== END 2016-08-01 05:35 | disposition short-term general hospital (02) ==
LOC: ED 01:48
DX: R79.1 Abnormal coagulation profile (principal); K92.1 Melena; D64.9 Anemia, unspecified; E78.5 Hyperlipidemia, unspecified; I10 Essential (primary) hypertension; I25.2 Old myocardial infarction; Z79.01 Long term (current) use of anticoagulants; Z86.711 Personal history of pulmonary embolism; Z95.0 Presence of cardiac pacemaker; Z79.899 Other long term (current) drug therapy
CPT/HCPCS: 36415; 80053; 85025; 85610; 96361; 96374; 96375; 99285

== ENCOUNTER 2016-08-01 05:38 | Outpatient (CLI) ==
[2012-09-14 05:37] VITALS: TEMP 97.6
[2016-08-01 01:49] VITALS: BMI 38.1
== END 2016-08-01 05:39 | disposition home or self-care (01) ==
LOC: AMBL 05:38
PROVIDERS: ATTEND Family Medicine
DX: K92.2 Gastrointestinal hemorrhage, unspecified (principal)

== ENCOUNTER 2016-08-13 11:29 | Outpatient (CLI) ==
[2012-09-14 05:37] VITALS: TEMP 97.6
[2016-08-13 12:14] LABS: PROTHROMBIN TIME 10.6 SEC (9.3-11.0)
== END 2016-08-13 11:30 | disposition home or self-care (01) ==
LOC: LAB 11:29
PROVIDERS: ATTEND Internal Medicine Hematology & Oncology
DX: Z86.718 Personal history of other venous thrombosis and embolism (principal)
CPT/HCPCS: 36415; 85610

== ENCOUNTER 2016-08-20 13:20 | Outpatient (CLI) ==
[2012-09-14 05:37] VITALS: TEMP 97.6
[2016-08-20 13:56] LABS: PROTHROMBIN TIME 15.7 SEC (9.3-11.0)
== END 2016-08-20 13:21 | disposition home or self-care (01) ==
LOC: LAB 13:20
PROVIDERS: ATTEND Internal Medicine Hematology & Oncology
DX: Z86.718 Personal history of other venous thrombosis and embolism (principal)
CPT/HCPCS: 36415; 85610

== ENCOUNTER 2016-08-27 14:50 | Outpatient (CLI) ==
[2012-09-14 05:37] VITALS: TEMP 97.6
[2016-08-27 15:17] LABS: PROTHROMBIN TIME 26.7 SEC (9.3-11.0)
== END 2016-08-27 14:51 | disposition home or self-care (01) ==
LOC: LAB 14:50
PROVIDERS: ATTEND Internal Medicine Hematology & Oncology
DX: Z86.718 Personal history of other venous thrombosis and embolism (principal)
CPT/HCPCS: 36415; 85610

== ENCOUNTER 2016-09-11 11:47 | Outpatient (CLI) ==
[2012-09-14 05:37] VITALS: TEMP 97.6
[2016-09-11 12:51] LABS: PROTHROMBIN TIME 13.4 SEC (9.3-11.0)
== END 2016-09-11 11:48 | disposition home or self-care (01) ==
LOC: LAB 11:47
PROVIDERS: ATTEND Internal Medicine Hematology & Oncology
DX: Z86.718 Personal history of other venous thrombosis and embolism (principal)
CPT/HCPCS: 36415; 85610

== ENCOUNTER 2016-09-17 14:36 | Outpatient (CLI) ==
[2012-09-14 05:37] VITALS: TEMP 97.6
[2016-09-17 15:50] LABS: PROTHROMBIN TIME 13.9 SEC (9.3-11.0)
== END 2016-09-17 14:37 | disposition home or self-care (01) ==
LOC: LAB 14:36
PROVIDERS: ATTEND Internal Medicine Hematology & Oncology
DX: Z86.718 Personal history of other venous thrombosis and embolism (principal)
CPT/HCPCS: 36415; 85610

== ENCOUNTER 2016-09-20 23:49 | Emergency (ER) ==
[2016-09-21 00:06] VITALS: BP 131/81; TEMP 99.7; BMI 35.7
[2016-09-21 00:46] LABS: BASOPHILS % (AUTO) 0.8 % (0.0-3.0); EOSINOPHILS # (AUTO) 0.2 K/ul (0.0-0.7); EOSINOPHILS % (AUTO) 3.3 % (0.0-7.0); HEMATOCRIT 38.6 % (37.0-47.0); HEMOGLOBIN 13.2 g/dl (12.0-16.0); IMMATURE GRANULOCYTE % (AUTO) 0.2 % (0.0-5.0); LYMPHOCYTES % (AUTO) 37.8 (10.0-50.0); MEAN CORPUSCULAR HEMOGLOBIN 30.7 pg (27.0-31.0); MEAN CORPUSCULAR HGB CONC 34.2 (31.8-35.4); MEAN CORPUSCULAR VOLUME 89.8 fl (81.0-99.0); MONOCYTES # (AUTO) 0.4 K/uL (0.4-2.0); MONOCYTES % (AUTO) 8.3 (0-10); NEUTROPHILS # (AUTO) 2.6 K/ul (2.0-6.9); NEUTROPHILS % (AUTO) 49.6; PLATELET COUNT 210 10^3/uL (140-440); WHITE BLOOD COUNT 5.19 K/ul (4.6-10.2)
[2016-09-21 01:06] LABS: ALBUMIN 3.8 g/dL (3.4-5.0); CALCIUM 9.1 mg/dL (8.2-10.2); POTASSIUM 3.8 mmol/L (3.5-5.10)
[2016-09-21 01:07] LABS: ALBUMIN/GLOBULIN RATIO 1.06; ANION GAP 16.8; BILIRUBIN,TOTAL 0.35 mg/dL (0.00-1.20); BUN/CREATININE RATIO 11.81; CREATININE 1.1 mg/dL (0.60-1.30); PROTHROMBIN TIME 19.5 SEC (9.3-11.0); TOTAL PROTEIN 7.4 g/dL (6.4-8.2)
[2016-09-21 01:13] LABS: TROPONIN I 0.014 ng/ml (0.0000-0.4000)
[2016-09-21] MEDS ORDERED: PHENERGAN 25 MG/ML VIAL IM STA (01:25)
[2016-09-21] MEDS ORDERED: DILAUDID 1 MG/ML SYRINGE IM STA (01:25)
[2016-09-21] MEDS ORDERED: DILAUDID 1 MG/ML SYRINGE IM PRN (01:48)
--- NOTE | 2016-09-21 02:45 | DI ---
EXAM: AP single view of the chest. HISTORY: Chest pain. FINDINGS: There is a two lead pacemaker. The bones are unremarkable. The cardiac silhouette and pu lmonary vasculature are within normal limits. The costophrenic angles are clear. No infiltrate or consolidation. Impression: No acute cardiopulmonary disease.
[2016-09-21 05:19] LABS: BILIRUBIN,URINE Negative (NEGATIVE); KETONES,URINE Negative (NEGATIVE); LEUKOCYTE ESTERASE ,URINE Negative (NEGATIVE); NITRITE,URINE Negative (NEGATIVE); PROTEIN,URINE Negative (NEGATIVE); URINE, BLOOD Negative (NEGATIVE)
[2016-09-21 05:24] LABS: ADD URINE MICROSCOPIC NO
[2016-09-21 05:34] LABS: CREATINE KINASE 57 U/L
--- NOTE | 2016-09-21 06:18 | ED.PDOC ---
General ED Provider: Dr. EVANGELISTA PATE-ER Chief Complaint: Chest Pain Stated Complaint: my pacemaker flipped up and i pushed it back down-- Time Seen by Physician: 23:55 Mode of Arrival: Walk-In Information Source: Patient, Family Exam Limitations: No limitations Primary Care Provider: JAIDEN VINCENT Nursing and Triage Documentation Reviewed and Agree: Yes Miscellaneous Complaint Exam - Complex/Multi-System Complaint/Exam Onset/Duration: this am Symptoms Are: Resolved Initial Severity: Mild Current Severity: Mild Location of Pain: anterior chest pain Associated Signs and Symptoms: Reports: Chest pain, Anticoagulation Therapy, Indwelling senior medical writer. Denies: Decreased responsiveness, Confusion, Agitation, Dizziness, Weakness, Syncope, Headache, Short of air, Cough, Wheezing , Hemoptysis, Palpitations, Edema, Nausea, Vomiting, Diarrhea, Abdominal pain, Back pain, Dysuria, Hematemesis, Melena, Decreased oral intake, Fever, Diaphoresis, Immunocompromised, Recent medication changes, Prior MRSA, Prior VRE , Recent trauma, Remote trauma Respiratory Distress: None JVD Present: No Tachypnea Present: No Stridor Present: No Abdominal Findings: Present: Normal findings Glascow Coma Scale (see protocol): 15 Meningeal Signs Positive: No Focal Weakness: Present: None Focal Sensory Loss: Present: None Gait: Normal Gag Reflex Present: No Babinski Sign: Negative Right, Negative Left Skin Findings: Present: Normal findings Joint Swelling Present: No In-Dwelling Device Present: Yes Differential Diagnosis: Cardiac Ischemia, Other Quality Indicator For Non-Traumatic Chest Pain/Syncope: EKG Performed Review of Systems - Review Of Systems Constitutional: Reports: No symptoms Eyes: Reports: No symptoms Ears, Nose, Mouth, Throat: Reports: No symptoms Respiratory: Reports: No symptoms Cardiac: Reports: Chest pain GI: Reports: No symptoms : Reports: No symptoms Musculoskeletal: Reports: No symptoms Skin: Reports: No symptoms Neurological: Reports: No symptoms Endocrine: Reports: No symptoms Hematologic/Lymphatic: Reports: No symptoms All Other Systems: Reviewed and Negative Past Medical History - Past Medical History Previously Healthy: No Endocrine: Reports: Dyslipidemia, Other (recurrent shingles, ) Cardiovascular: Reports: [place], Hypertension, CHF, A-Fib Respiratory: Reports: PE (pulmonay emboli) Hematological: Reports: Anemia, Other (PE on coumadine) Gastrointestinal: Reports: GERD Genitourinary: Reports: UTI (ecoli with sepsis), Kidney stones, CKD, Other ( ecoli with sepsis) Neuro/Psych: Reports: Migraine, Seizure, Anxiety, Other (recurrent shingles,) Musculoskeletal: Reports: Arthritis Cancer: Reports: None Last Menstrual Period: 2010 Other Pertinent Past Medical History: pacer last week in [place] per her hx - Surgical History General Surgical History: Reports: Tubal ligation, , Cholecystectomy, Tonsillectomy, Pacemaker (pacemaker 04/24/15), Orthopedic (left lateral release left knee), Other (esophageal dilation, hemorrhoidectomy) - Family History Family History: Reports: Unknown - Social History Smoking Status: Never smoker Hx Substance Use: No (frequent ER visits) Alcohol Screening: None Lives: With family - Immunizations Tetanus Shot up to Date: Yes Physical Exam - Physical Exam Appearance: Well-appearing, No pain distress, Well-nourished Pain Distress: Mild Eyes: [place], EOMI, Conjunctiva clear ENT: Ears normal, Nose normal, Oropharynx normal Neck: Supple Respiratory: Airway patent, Breath sounds clear, Breath sounds equal, Respirations nonlabored Cardiovascular: RRR, Pulses normal, No rub, No murmur GI/: Soft Musculoskeletal: Normal strength, ROM intact, No edema, No calf tenderness Skin: Warm, Dry, Normal color Neurological: Sensation intact, Motor intact, Reflexes intact, Cranial nerves intact, Alert, Oriented Psychiatric: Affect appropriate, Mood appropriate, Anxious Interpretation - Radiology Interpretation Radiology Interpretation By: Radiologist Radiology Results: Negative Exam Interpreted: Portable CXR - EKG Interpretation Time of EKG #1: 00:50 Rate: Normal Rhythm: Sinus Ectopy: None [place]: NL ST Segment: Normal Time of EKG #2: 05:00 Rate: Normal Rhythm: Sinus Ectopy: None [place]: NL ST Segment: Normal EKG Interpretation: nsr Re-Evaluation - Re-Evaluation Time of Re-Evaluation: 06:26 Status: Improved Vital Signs Stable: Yes Pain Level: 1 Appearance: NAD Lungs: Clear Skin: Warm and Dry Neuro: Alert and Oriented X3 CV: RRR Physician Notification - Case Discussed Physician Notified: dr dial(non emergency services ambulance driver for dr Conway)--ok to keep appt today 10--family car Time of Notification: 06:27 Physician Notified: dr coley notified 7am Critical Care Note - Critical Care Note Total Time (mins): 0 Course - Course Hematology/Chemistry: 09/21/16 00:45 09/21/16 00:45 Orders, Labs, Meds: Lab Review 09/21/16 09/21/16 09/21/16 00:45 04:40 05:08 WBC 5.19 RBC 4.30 Hgb 13.2 Hct 38.6 MCV 89.8 MCH 30.7 MCHC 34.2 RDW Coeff of [place] 12.8 Plt Count 210 Immature Gran % (Auto) 0.2 Neut % (Auto) 49.6 Lymph % (Auto) 37.8 [place] % (Auto) 8.3 Eos % (Auto) 3.3 Baso % (Auto) 0.8 Immature Gran # (Auto) 0.0 Neut # 2.6 Lymph # 2.0 [place] # 0.4 Eos # 0.2 Baso # 0.0 PT 19.5 H INR 1.89 Sodium 145 Potassium 3.8 Chloride 109 H Carbon Dioxide 23 Anion Gap 16.8 BUN 13 Creatinine 1.10 Estimated GFR (MDRD) 52.00 BUN/Creatinine Ratio 11.81 Glucose 92 Calcium 9.1 Total Bilirubin 0.35 AST 16 ALT 19 Alkaline Phosphatase 82 Total Creatine Kinase 63 57 Troponin I 0.0140 < 0.0100 Total Protein 7.4 Albumin 3.8 Globulin 3.6 Albumin/Globulin Ratio 1.06 Urine Color Yellow Urine Clarity Clear Urine pH 6.0 Ur Specific [place] 1.025 Urine Protein Negative Urine Glucose (UA) Negative Urine Ketones Negative Urine Blood Negative Urine Nitrite Negative Urine Bilirubin Negative Urine Urobilinogen 0.2 Ur Leukocyte Esterase Negative Orders Category Date Time Status EKG-(ED ONLY) Stat CARDIO 09/21/16 00:38 Completed EKG-(ED ONLY) Timed CARDIO 09/21/16 05:00 Completed CBC W/ AUTO DIFF Stat LAB 09/21/16 00:45 Completed CK [CREATINE KINASE] Timed LAB 09/21/16 05:08 Completed COMPREHENSIVE METABOLIC PANEL Stat LAB 09/21/16 00:45 Completed CREATINE KINASE Stat LAB 09/21/16 00:45 Completed PT WITH INR Stat LAB 09/21/16 00:45 Completed TROPONIN I Stat LAB 09/21/16 00:45 Completed TROPONIN I Timed LAB 09/21/16 05:08 Completed URINALYSIS C & S IF INDICATED Stat LAB 09/21/16 04:40 Completed Hydromorphone HCl [Dilaudid 1 mg/ml Syringe] MEDS 09/21/16 01:25 Discontinued 1 mg IM ONCE STA Hydromorphone HCl [Dilaudid 1 mg/ml Syringe] MEDS 09/21/16 01:48 Discontinued 1 mg IM Q2HR PRN Morphine Sulfate [Morphine 2 mg/ml Syringe] MEDS 09/21/16 06:44 Ordered 2 mg IM Q2HR PRN Promethazine HCl [Phenergan 25 mg/ml Vial] MEDS 09/21/16 01:25 Discontinued 25 mg IM ONCE STA CXR [CHEST, 1V AP ONLY] Stat RADS 09/21/16 00:56 Completed Medications Generic Name Dose Route Start Last Admin Trade Name Freq PRN Reason Stop Dose Admin Morphine Sulfate 2 mg 09/21/16 06:44 Morphine 2 Mg/Ml Syringe IM Q2HR PRN Chest Pain Discontinued Medications Generic Name Dose Route Start Last Admin Trade Name Freq PRN Reason Stop Dose Admin Hydromorphone HCl 1 mg 09/21/16 01:25 09/21/16 01:37 Dilaudid 1 Mg/Ml Syringe IM 09/21/16 01:26 1 mg ONCE STA Administration Hydromorphone HCl 1 mg 09/21/16 01:48 09/21/16 03:52 Dilaudid 1 Mg/Ml Syringe IM 1 mg Q2HR PRN Administration Chest Pain Promethazine HCl 25 mg 09/21/16 01:25 09/21/16 01:36 Phenergan 25 Mg/Ml Vial IM 09/21/16 01:26 25 mg ONCE STA Administration we observed her here for several hours--no dysrythmia except for occ pvcs-- cardiac enzymes x 2 are ok--again spoke with dr dial about her appt today wtih dr fam--he was ok with transport by family car...she does have chest wall pain due to pacer displacement Vital Signs: Temp Pulse Resp BP Pulse Ox 09/20/16 23:51 99.7 F H 70 20 131/[address] giles non emergency services ambulance driver for dr conway--he okd for her to come by family car this am since no dysrythmia and keep appt with dr conway Departure - Departure Time of Disposition: 06:28 Disposition: HOME SELF-CARE Discharge Problem: Chest pain Instructions: Chest Pain (ED) Condition: Fair Pt referred to PMD for follow-up: Yes Additional Instructions: keep appt today with dr conway.. Allergies/Adverse Reactions: Allergies aspirin Adverse Reaction (Verified 09/21/16 00:06) cephalexin monohydrate [From Keflex] Adverse Reaction (Verified 09/21/16 00:06) clarithromycin [From Biaxin] Adverse Reaction (Verified 09/21/16 00:06) ketorolac [From Toradol] Adverse Reaction (Verified 09/21/16 00:06) leflunomide [From Arava] Adverse Reaction (Verified 09/21/16 00:06) NSAIDS (Non-Steroidal Anti-Inflamma Adverse Reaction (Verified 09/21/16 00:06) Penicillins Adverse Reaction (Verified 09/21/16 00:06) radioactive dye for stress test Adverse Reaction (Uncoded 09/21/16 00:06) Home Medications: Ambulatory Orders Diazepam [Valium] 10 mg PO TID PRN 09/25/13 Clonidine HCl [Catapres] 0.1 mg PO TID 08/17/14 Lisinopril [Zestril] 40 mg PO BID 11/03/14 Metoprolol Tartrate [Lopressor] 50 mg PO BID 12/11/14 Furosemide [Lasix Tab] 40 mg PO DAILY PRN 10/02/15 Warfarin Sodium [Coumadin] 10 mg PO EVERY OTHER DAY 12/19/15 Oxycodone HCl [Oxycodone] 10 mg PO Q6H PRN 04/29/16 Warfarin Sodium [Coumadin] 7.5 mg PO EVERY OTHER DAY 08/01/16 Amlodipine Besylate [Norvasc] 10 mg PO DAILY 09/21/16 Transfer Form Completed: No Disposition Discussed With: Patient
[2016-09-21] MEDS: MORPHINE 2 MG/ML SYRINGE IM PRN ×2 (06:53→09:30)
== END 2016-09-21 10:05 | disposition home or self-care (01) ==
LOC: ED 23:49
DX: R07.89 Other chest pain (principal); T82.129A Displacement of unspecified cardiac electronic device, initial encounter; E78.5 Hyperlipidemia, unspecified; I13.0 Hypertensive heart and chronic kidney disease with heart failure and stage 1 through stage 4 chronic kidney disease, or unspecified chronic kidney disease; N18.9 Chronic kidney disease, unspecified; D63.1 Anemia in chronic kidney disease; I25.2 Old myocardial infarction; Z95.0 Presence of cardiac pacemaker; Z79.01 Long term (current) use of anticoagulants; Z79.899 Other long term (current) drug therapy; Z86.711 Personal history of pulmonary embolism
CPT/HCPCS: 36415; 80053; 81001; 82550; 84484; 85025; 85610; 93005; 93010; 96372; 99283

== ENCOUNTER 2016-09-24 05:21 | Outpatient (CLI) ==
[2012-09-14 05:37] VITALS: TEMP 97.6
== END 2016-09-24 05:22 | disposition home or self-care (01) ==
LOC: AMBL 05:21
PROVIDERS: ATTEND Family Medicine
DX: R42 Dizziness and giddiness (principal); R25.3 Fasciculation; R06.6 Hiccough; Z95.0 Presence of cardiac pacemaker

== ENCOUNTER 2016-09-26 05:18 | Emergency (ER) ==
[2016-09-26 05:35] VITALS: BP 120/81; TEMP 99.2
[2016-09-26] MEDS ORDERED: DILAUDID 2 MG/ML SYRINGE IM STA (06:17)
[2016-09-26] MEDS ORDERED: ZOFRAN 4 MG/2 ML IM STA (06:17)
[2016-09-26 06:30] LABS: BASOPHILS % (AUTO) 0.8 % (0.0-3.0); EOSINOPHILS # (AUTO) 0.2 K/ul (0.0-0.7); EOSINOPHILS % (AUTO) 3.7 % (0.0-7.0); HEMATOCRIT 41.4 % (37.0-47.0); IMMATURE GRANULOCYTE % (AUTO) 0.4 % (0.0-5.0); LYMPHOCYTES # (AUTO) 2.4 K/uL (0.60-3.4); LYMPHOCYTES % (AUTO) 49.7 (10.0-50.0); MEAN CORPUSCULAR HEMOGLOBIN 30.7 pg (27.0-31.0); MEAN CORPUSCULAR HGB CONC 33.8 (31.8-35.4); MEAN CORPUSCULAR VOLUME 90.8 fl (81.0-99.0); MONOCYTES # (AUTO) 0.5 K/uL (0.4-2.0); MONOCYTES % (AUTO) 9.4 (0-10); NEUTROPHILS # (AUTO) 1.8 K/ul (2.0-6.9); PLATELET COUNT 207 10^3/uL (140-440); RED BLOOD COUNT 4.56 10^6/ul (4.20-5.40); WHITE BLOOD COUNT 4.91 K/ul (4.6-10.2)
--- NOTE | 2016-09-26 06:51 | ED.PDOC ---
General Stated Complaint: my chest hurts--im supposed to have my pacer changed out on october 05 Time Seen by Physician: 05:30 Mode of Arrival: Walk-In Information Source: Patient Exam Limitations: No limitations Nursing and Triage Documentation Reviewed and Agree: Yes <CHELSYEVANGELISTA - Last Filed: 09/26/16 07:03> <SAMI JAMESON - Last Filed: 09/26/16 07:08> ED Provider: Dr. SAMI JAMESON Chief Complaint: Chest Pain Primary Care Provider: JAIDEN VINCENT Cardiovascular Complaint Exam - Chest Pain Complaint/Exam Onset: Gradual Duration: several days Symptoms Are: Still present Timing: Constant Initial Severity: Mild Current Severity: Moderate Location: Reports: Discrete, Left anterior Character: Reports: Dull, Aching Aggravating: Reports: Movement Alleviating: Reports: None Associated Signs and Symptoms: Reports: Hemoptysis Related Surgical History: Reports: Pacemaker History of Healthcare-Acquired Pneumonia: Reports: No Pulmonary Embolism Risk Factors: Reports: None Prior Care for this Complaint: Yes Recent Stress Test: No Recent Echo/LV Function: No JVD Present: No Subcutaneous Emphysema Present: No Diminshed Breath Sounds: No Reproducible Chest Wall Pain: Yes Bilateral Pulses Present: Yes Unequal Pulses Noted: No Differential Diagnoses: Chest Wall Pain Quality Indicator For Non-Traumatic Chest Pain/Syncope: EKG Performed <CHELSYEVANGELISTA Filed: 09/26/16 07:03> Review of Systems - Review Of Systems Constitutional: Reports: No symptoms Eyes: Reports: No symptoms Ears, Nose, Mouth, Throat: Reports: No symptoms Respiratory: Reports: No symptoms Cardiac: Reports: Chest pain GI: Reports: No symptoms : Reports: No symptoms Musculoskeletal: Reports: No symptoms Skin: Reports: No symptoms Neurological: Reports: No symptoms Endocrine: Reports: No symptoms Hematologic/Lymphatic: Reports: No symptoms All Other Systems: Reviewed and Negative <HERLINDA-ER,EVANGELISTA Last Filed: 09/26/16 07:03> Past Medical History - Past Medical History Previously Healthy: No Endocrine: Reports: Dyslipidemia, Other (recurrent shingles, ) Cardiovascular: Reports: [place], Hypertension, CHF, A-Fib Respiratory: Reports: PE (pulmonay emboli) Hematological: Reports: Anemia, Other (PE on coumadine) Gastrointestinal: Reports: GERD Genitourinary: Reports: UTI (ecoli with sepsis), Kidney stones, CKD, Other ( ecoli with sepsis) Neuro/Psych: Reports: Migraine, Seizure, Anxiety, Other (recurrent shingles,) Musculoskeletal: Reports: Arthritis Cancer: Reports: None Last Menstrual Period: 2010 Other Pertinent Past Medical History: pacer last week in [place] per her hx - Surgical History General Surgical History: Reports: Tubal ligation, , Cholecystectomy, Tonsillectomy, Pacemaker (pacemaker 04/24/15), Orthopedic (left lateral release left knee), Other (esophageal dilation, hemorrhoidectomy) - Family History Family History: Reports: Unknown - Social History Smoking Status: Never smoker Hx Substance Use: No (frequent ER visits) Alcohol Screening: None Lives: With family - Immunizations Tetanus Shot up to Date: Yes <EVANGELISTA VALENTINO - Last Filed: 09/26/16 07:03> Physical Exam - Physical Exam Appearance: Well-appearing, No pain distress, Well-nourished Pain Distress: Moderate Eyes: [place], EOMI, Conjunctiva clear ENT: Ears normal, Nose normal, Oropharynx normal Neck: Supple Respiratory: Airway patent Cardiovascular: RRR, Pulses normal, No rub, No murmur GI/: Soft, Nontender, No masses, Bowel sounds normal, No Organomegaly Musculoskeletal: Normal strength, ROM intact, No edema, No calf tenderness Skin: Warm, Dry, Normal color Neurological: Sensation intact, Motor intact, Reflexes intact, Cranial nerves intact, Alert, Oriented Psychiatric: Affect appropriate, Mood appropriate, Anxious <EVANGELISTA VALENTINO - Last Filed: 09/26/16 07:03> Physician Notification - Case Discussed Physician Notified: dr jameson Time of Notification: 07:00 <EVANGELISTA VALENTINO - Last Filed: 09/26/16 07:03> Critical Care Note - Critical Care Note Total Time (mins): 0 <SAMI JAMESON - Last Filed: 09/26/16 07:08> Course - Course Hematology/Chemistry: 09/26/16 06:20 09/26/16 06:20 <EVANGELISTA VALENTINO - Last Filed: 09/26/16 07:03> - Course Hematology/Chemistry: 09/26/16 06:20 09/26/16 06:20 <SAMI JAMESON Last Filed: 09/26/16 07:08> - Course Orders, Labs, Meds: Lab Review 09/26/16 06:20 WBC 4.91 RBC 4.56 Hgb 14.0 Hct 41.4 MCV 90.8 MCH 30.7 MCHC 33.8 RDW Coeff of [place] 12.8 Plt Count 207 Immature Gran % (Auto) 0.4 Neut % (Auto) 36.0 Lymph % (Auto) 49.7 [place] % (Auto) 9.4 Eos % (Auto) 3.7 Baso % (Auto) 0.8 Immature Gran # (Auto) 0.0 Neut # 1.8 L Lymph # 2.4 [place] # 0.5 Eos # 0.2 Baso # 0.0 Sodium 142 Potassium 3.9 Chloride 107 Carbon Dioxide 24 Anion Gap 14.9 BUN 15 Creatinine 0.89 Estimated GFR (MDRD) 66.00 BUN/Creatinine Ratio 16.85 Glucose 86 Calcium 9.3 Total Bilirubin 0.27 AST 21 ALT 23 Alkaline Phosphatase 106 H Total Creatine Kinase 62 Troponin I < 0.0100 Total Protein 7.3 Albumin 3.8 Globulin 3.5 Albumin/Globulin Ratio 1.09 Amylase 33 Lipase 22 Orders Category Date Time Status EKG-(ED ONLY) Stat CARDIO 09/26/16 06:16 Completed Compliance Review Specialist [ED MEDICAL CLAIMS REPRESENTATIVE APPLIED] .ONCE EMERGENCY 09/26/16 06:17 Active AMYLASE Stat LAB 09/26/16 06:20 Completed CBC W/ AUTO DIFF Stat LAB 09/26/16 06:20 Completed COMPREHENSIVE METABOLIC PANEL Stat LAB 09/26/16 06:20 Completed CREATINE KINASE Stat LAB 09/26/16 06:20 Completed LIPASE Stat LAB 09/26/16 06:20 Completed TROPONIN I Stat LAB 09/26/16 06:20 Completed Hydromorphone HCl/Pf [Dilaudid 2 mg/ml Syringe] MEDS 09/26/16 06:17 Discontinued 2 mg IM ONCE STA Ondansetron HCl/Pf [Zofran 4 mg/2 ml] MEDS 09/26/16 06:17 Discontinued 4 mg IM ONCE STA CHEST, 1V AP ONLY Stat RADS 09/26/16 06:16 Taken Medications Discontinued Medications Generic Name Dose Route Start Last Admin Trade Name Freq PRN Reason Stop Dose Admin Hydromorphone HCl 2 mg 09/26/16 06:17 09/26/16 06:29 Dilaudid 2 Mg/Ml Syringe IM 09/26/16 06:18 2 mg ONCE STA Administration Ondansetron HCl 4 mg 09/26/16 06:17 09/26/16 06:32 Zofran 4 Mg/2 Ml IM 09/26/16 06:18 4 mg ONCE STA Administration Vital Signs: Temp Pulse Resp BP Pulse Ox 09/26/16 05:21 99.2 F 82 20 120/81 98 Departure <EVANGELISTA VALENTINO - Last Filed: 09/26/16 07:03> - Departure Time of Disposition: 07:07 (took over care at 7 am .pt will follow up with pmd ) Pt referred to PMD for follow-up: Yes <SAMI JAMESON - Last Filed: 09/26/16 07:08> - Departure Disposition: HOME SELF-CARE Discharge Problem: Chest wall pain Instructions: Chest Wall Pain (ED) Condition: Good Additional Instructions: Please call your Family Physician as soon as possible to schedule a follow-up appointment. Allergies/Adverse Reactions: Allergies aspirin Adverse Reaction (Verified 09/26/16 05:37) cephalexin monohydrate [From Keflex] Adverse Reaction (Verified 09/26/16 05:37) clarithromycin [From Biaxin] Adverse Reaction (Verified 09/26/16 05:37) ketorolac [From Toradol] Adverse Reaction (Verified 09/26/16 05:37) leflunomide [From Arava] Adverse Reaction (Verified 09/26/16 05:37) NSAIDS (Non-Steroidal Anti-Inflamma Adverse Reaction (Verified 09/26/16 05:37) Penicillins Adverse Reaction (Verified 09/26/16 05:37) radioactive dye for stress test Adverse Reaction (Uncoded 09/26/16 05:37) Home Medications: Ambulatory Orders Diazepam [Valium] 10 mg PO TID PRN 09/25/13 Clonidine HCl [Catapres] 0.1 mg PO TID 08/17/14 Lisinopril [Zestril] 40 mg PO BID 11/03/14 Metoprolol Tartrate [Lopressor] 50 mg PO BID 12/11/14 Furosemide [Lasix Tab] 40 mg PO DAILY PRN 10/02/15 Warfarin Sodium [Coumadin] 10 mg PO EVERY OTHER DAY 12/19/15 Oxycodone HCl [Oxycodone] 10 mg PO Q6H PRN 04/29/16 Warfarin Sodium [Coumadin] 7.5 mg PO EVERY OTHER DAY 08/01/16 Amlodipine Besylate [Norvasc] 10 mg PO DAILY 09/21/16
[2016-09-26 06:57] LABS: ALANINE AMINOTRANSFERASE 23 U/L (12-78); ALBUMIN 3.8 g/dL (3.4-5.0); ALBUMIN/GLOBULIN RATIO 1.09; ALKALINE PHOSPHATASE 106 U/L (42-98); AMYLASE 33 U/L (25-115); ANION GAP 14.9; ASPARTATE AMINO TRANSFERASE 21 U/L (15-37); BILIRUBIN,TOTAL 0.27 mg/dL (0.00-1.20); BLOOD UREA NITROGEN 15 mg/dL (7-18); BUN/CREATININE RATIO 16.85; CALCIUM 9.3 mg/dL (8.2-10.2); CARBON DIOXIDE 24 mmol/L (21-32); CHLORIDE 107 mmol/L (98-107); CREATINE KINASE 62 U/L; CREATININE 0.89 mg/dL (0.60-1.30); GLUCOSE 86 mg/dL (70-110); LIPASE 22 U/L (8-78); POTASSIUM 3.9 mmol/L (3.5-5.10); SODIUM 142 mmol/L (136-145); TOTAL PROTEIN 7.3 g/dL (6.4-8.2)
--- NOTE | 2016-09-26 08:44 | DI ---
EXAM: CHEST FRONTAL VIEW HISTORY: Chest pain. COMPARISON: 09/21/2016 FINDINGS: Heart size and mediastinum remain within normal limits. Left pacemaker unit is stable. No acute infiltrates are seen. There is no consolidation, visible pleural fluid or pneumothorax. Mich froylan reveal no acute fracture. IMPRESSION: No acute cardiopulmonary process.
== END 2016-09-26 07:10 | disposition home or self-care (01) ==
LOC: ED 05:18
DX: R07.89 Other chest pain (principal); R04.2 Hemoptysis; I25.2 Old myocardial infarction; Z95.0 Presence of cardiac pacemaker; Z79.01 Long term (current) use of anticoagulants; Z79.899 Other long term (current) drug therapy; Z86.711 Personal history of pulmonary embolism
CPT/HCPCS: 36415; 80053; 82150; 82550; 83690; 84484; 85025; 93005; 93010; 96372; 99283

== ENCOUNTER 2016-09-29 12:45 | Outpatient (CLI) ==
[2012-09-14 05:37] VITALS: TEMP 97.6
[2016-09-29 13:43] LABS: PROTHROMBIN TIME 15.9 SEC (9.3-11.0)
== END 2016-09-29 12:46 | disposition home or self-care (01) ==
LOC: LAB 12:45
PROVIDERS: ATTEND Internal Medicine Hematology & Oncology
DX: Z86.718 Personal history of other venous thrombosis and embolism (principal)
CPT/HCPCS: 36415; 85610

== ENCOUNTER 2016-10-10 20:59 | Emergency (ER) ==
[2016-10-10 21:06] VITALS: BP 149/98; TEMP 98.7; BMI 36.8
--- NOTE | 2016-10-10 21:30 | CT ---
EXAM: CT head without contrast. HISTORY: Fall. PROCEDURE: Contiguous axial CT images of the head without contrast with coronal reformats. FINDINGS: Comparison made with CT head of 03/27/2016. The ventricles and basal cisterns are normal in size and configuration. No midline shift. There is a stable 0.8 cm left frontal calcified menin gioma. No intracranial hemorrhage or evidence of large vessel infarct. No extra-axial fluid collec tion. No skull fracture. The paranasal sinuses and mastoid air cells are well-aerated. Impression: Stable CT head compared with CT of 03/27/2016. No intracranial hemorrhage or skull fracture. Stable left frontal calcified meningioma as described.
[2016-10-10] MEDS ORDERED: PHENERGAN 25 MG/ML VIAL IM STA (21:32)
[2016-10-10] MEDS ORDERED: DILAUDID 2 MG/ML SYRINGE IM STA (21:32)
--- NOTE | 2016-10-10 21:39 | CT ---
EXAM: CT of the cervical spine without contrast. HISTORY: Fall. PROCEDURE: Contiguous axial CT images of the cervical spine without contrast with coronal and sagit efrem reformats. FINDINGS: There is normal alignment of the cervical vertebral bodies and facets. The vertebral body heights are maintained. There is multilevel disc space narrowing. There are posterior osteophytes at multiple levels of the cervical spine. There is multilevel neural foraminal narrowing. There i s multilevel facet arthropathy. The C1-2 relationship is maintained. No prevertebral soft tissue a bnormality. Impression: No evidence of fracture. Normal alignment of the cervical spine with degenerative changes as described.
--- NOTE | 2016-10-10 21:45 | CT ---
EXAM: CT chest without contrast HISTORY: Fall per TECHNIQUE: Multi-slice transaxial helical. Coronal and sagital reformations were performed. COMPARISON: 08/26/2015. FINDINGS: The heart is normal in size. Pacer leads are present within the right heart. No evidence of medias tinal hematoma is seen. There is no mediastinal adenopathy. The thyroid appears unremarkable. Left chest generator pack is visualized. There is no axillary ad enopathy. The gallbladder has been removed. No evidence of hyperdense fluid within the upper abdom en is seen. No evidence of displaced rib fracture is seen. Visualized vertebral body heights and i ntervertebral disc spaces of the thoracic spine appear preserved. There is no focal airspace opacity, pleural effusion, or pneumothorax. The lungs appear clear. IMPRESSION: 1. No post traumatic changes of the chest. 2. No acute cardiopulmonary findings. 3. Left chest cardiac pacer device. 4. Cholecystectomy.
--- NOTE | 2016-10-10 21:55 | ED.PDOC ---
General ED Provider: Dr. EVANGELISTA PATE-ER Chief Complaint: Fall Stated Complaint: i fell on my shoulder and ribs --i didnt get knocked out Time Seen by Physician: 21:05 Mode of Arrival: Walk-In Information Source: Patient Exam Limitations: No limitations Primary Care Provider: JAIDEN VINCENT Nursing and Triage Documentation Reviewed and Agree: Yes Trauma/Injury Complaint Exam - Truncal Trauma Complaint/Exam Location of Pain: Reports: Left, Chest Onset: one hour Symptoms Are: Still present Onset of Pain: Reports: Immediate Initial Severity: Mild Current Severity: Moderate Mechanism: Reports: Fall Aggravating: Reports: Movement, Deep breathing, Cough Alleviating: Reports: None Associated Signs and Symptoms: Reports: Chest pain. Denies: Short of air, Cough , Hematuria, Abdominal pain, Fever, Vomiting Immobilization Removed Post Exam: No Vertebral Tenderness Present: No Vertebral Deformity Present: No Trachial Deviation Present: No JVD Present: No Crepitus Present: No Diminished Breath Sounds: No Reproducible Pain at: left chest wall Muffled Heart Sounds Present: No Paradoxical Chest Wall Movement Present: No Abdominal Guarding Present: No Abdominal Rigidity Present: No Referred Shoulder Pain (Kehr's Sign) Present: No Skin Findings: Present: Normal findings Differential Diagnoses: Chest Wall Contusion Review of Systems - Review Of Systems Constitutional: Reports: No symptoms Eyes: Reports: No symptoms Ears, Nose, Mouth, Throat: Reports: No symptoms Respiratory: Reports: No symptoms Cardiac: Reports: No symptoms GI: Reports: No symptoms : Reports: No symptoms Musculoskeletal: Reports: Joint pain, Muscle pain Skin: Reports: No symptoms Neurological: Reports: No symptoms Endocrine: Reports: No symptoms Hematologic/Lymphatic: Reports: No symptoms All Other Systems: Reviewed and Negative Past Medical History - Past Medical History Previously Healthy: No Endocrine: Reports: Dyslipidemia, Other (recurrent shingles, ) Cardiovascular: Reports: [place], Hypertension, CHF, A-Fib Respiratory: Reports: PE (pulmonay emboli) Hematological: Reports: Anemia, Other (PE on coumadine) Gastrointestinal: Reports: GERD Genitourinary: Reports: UTI (ecoli with sepsis), Kidney stones, CKD, Other ( ecoli with sepsis) Neuro/Psych: Reports: Migraine, Seizure, Anxiety, Other (recurrent shingles,) Musculoskeletal: Reports: Arthritis Cancer: Reports: None Last Menstrual Period: PT HAS HAD A HYSTERECTOMY Other Pertinent Past Medical History: pacer last week in [place] per her hx - Surgical History General Surgical History: Reports: Tubal ligation, , Cholecystectomy, Tonsillectomy, Pacemaker (pacemaker 04/24/15), Orthopedic (left lateral release left knee), Other (esophageal dilation, hemorrhoidectomy) - Family History Family History: Reports: Unknown - Social History Smoking Status: Never smoker Hx Substance Use: No (frequent ER visits) Alcohol Screening: None Lives: With family - Immunizations Tetanus Shot up to Date: Yes Physical Exam - Physical Exam Appearance: Well-appearing, No pain distress, Well-nourished Pain Distress: Moderate Eyes: CARL[place], EOMI, Conjunctiva clear ENT: Ears normal, Nose normal, Oropharynx normal Neck: Supple Respiratory: Airway patent, Breath sounds clear, Breath sounds equal, Respirations nonlabored Cardiovascular: RRR, Pulses normal, No rub, No murmur GI/: Soft, Nontender, No masses, Bowel sounds normal, No Organomegaly Musculoskeletal: Limited ROM Skin: Warm, Dry, Normal color Neurological: Sensation intact, Motor intact, Reflexes intact, Cranial nerves intact, Alert, Oriented Psychiatric: Affect appropriate, Mood appropriate Interpretation - Radiology Interpretation Radiology Interpretation By: Radiologist Radiology Results: Negative Exam Interpreted: CT Scan Re-Evaluation - Re-Evaluation Time of Re-Evaluation: 21:55 Status: Improved Vital Signs Stable: Yes Pain Level: 2 Appearance: NAD Lungs: Clear Skin: Warm and Dry Neuro: Alert and Oriented X3 CV: RRR Critical Care Note - Critical Care Note Total Time (mins): 0 Course - Course Orders, Labs, Meds: Orders Category Date Time Status Hydromorphone HCl/Pf [Dilaudid 2 mg/ml Syringe] MEDS 10/10/16 21:32 Discontinued 2 mg IM ONCE STA Promethazine HCl [Phenergan 25 mg/ml Vial] MEDS 10/10/16 21:32 Discontinued 25 mg IM ONCE STA CT CERVICAL SPINE W/O CONTRAST Stat RADS 10/10/16 21:[address] CHEST W/O CONTRAST Stat RADS 10/10/16 21:[address] HEAD W/O CONTRAST Stat RADS 10/10/16 21:08 Completed SHOULDER, LEFT MIN 2V Stat RADS 10/10/16 21:09 Taken Medications Discontinued Medications Generic Name Dose Route Start Last Admin Trade Name Freq PRN Reason Stop Dose Admin Hydromorphone HCl 2 mg 10/10/16 21:32 10/10/16 21:50 Dilaudid 2 Mg/Ml Syringe IM 10/10/16 21:33 2 mg ONCE STA Administration Promethazine HCl 25 mg 10/10/16 21:32 10/10/16 21:51 Phenergan 25 Mg/Ml Vial IM 10/10/16 21:33 25 mg ONCE STA Administration Vital Signs: Temp Pulse Resp BP Pulse Ox 10/10/16 21:00 98.7 F 72 18 149/98 H 98 Departure - Departure Time of Disposition: 21:55 Disposition: HOME SELF-CARE Discharge Problem: Chest wall pain Instructions: Chest Wall Pain (ED) Condition: Good Pt referred to PMD for follow-up: Yes Additional Instructions: w/u with pcp Allergies/Adverse Reactions: Allergies aspirin Adverse Reaction (Verified 10/10/16 21:06) cephalexin monohydrate [From Keflex] Adverse Reaction (Verified 10/10/16 21:06) clarithromycin [From Biaxin] Adverse Reaction (Verified 10/10/16 21:06) ketorolac [From Toradol] Adverse Reaction (Verified 10/10/16 21:06) leflunomide [From Arava] Adverse Reaction (Verified 10/10/16 21:06) NSAIDS (Non-Steroidal Anti-Inflamma Adverse Reaction (Verified 10/10/16 21:06) Penicillins Adverse Reaction (Verified 10/10/16 21:06) radioactive dye for stress test Adverse Reaction (Uncoded 10/10/16 21:06) Home Medications: Ambulatory Orders Diazepam [Valium] 10 mg PO TID PRN 09/25/13 Clonidine HCl [Catapres] 0.1 mg PO TID 08/17/14 Lisinopril [Zestril] 40 mg PO BID 11/03/14 Metoprolol Tartrate [Lopressor] 50 mg PO BID 12/11/14 Furosemide [Lasix Tab] 40 mg PO DAILY PRN 10/02/15 Warfarin Sodium [Coumadin] 10 mg PO EVERY OTHER DAY 12/19/15 Oxycodone HCl [Oxycodone] 10 mg PO Q6H PRN 04/29/16 Warfarin Sodium [Coumadin] 7.5 mg PO EVERY OTHER DAY 08/01/16 Amlodipine Besylate [Norvasc] 10 mg PO DAILY 09/21/16 Disposition Discussed With: Patient
--- NOTE | 2016-10-11 03:40 | DI ---
EXAM: Left shoulder three views HISTORY: Trauma COMPARISON: None. FINDINGS: The AC joint and glenohumeral joint are well maintained. There is no acute fracture or d islocation. Surrounding soft tissues are unremarkable. IMPRESSION: No acute findings.
== END 2016-10-10 22:25 | disposition home or self-care (01) ==
LOC: ED 20:59
DX: S49.90XA Unspecified injury of shoulder and upper arm, unspecified arm, initial encounter (principal); S29.9XXA Unspecified injury of thorax, initial encounter; R07.89 Other chest pain; W19.XXXA Unspecified fall, initial encounter
CPT/HCPCS: 96372; 99283

== ENCOUNTER 2016-10-16 04:17 | Emergency (ER) ==
[2016-10-16 04:19] VITALS: BMI 36.8
[2016-10-16 04:27] VITALS: BP 105/69; TEMP 97.6
--- NOTE | 2016-10-16 05:11 | ED.PDOC ---
General ED Provider: Dr. CLEMENTE BERNAL Chief Complaint: Chest Wall Injury/Pain Stated Complaint: Patient was in ER on 10-10-16, after sustaing a fall. today she started hurting in sleep she is worried if something wrong with the Pacemaker position, so came for the evaluation. Time Seen by Physician: 05:06 Mode of Arrival: Walk-In Information Source: Patient Nursing and Triage Documentation Reviewed and Agree: Yes Cardiovascular Complaint Exam - Chest Pain Complaint/Exam Onset: Gradual Symptoms Are: Still present Timing: Constant Initial Severity: Mild Current Severity: Mild Location: Reports: Discrete (left chest ppm site) Pain Radiates: Reports: None Character: Reports: Sharp Aggravating: Reports: None Alleviating: Reports: None Associated Signs and Symptoms: Denies: Diaphoresis, Nausea, Vomiting, Fever, Palpitations, Cough, Hemoptysis, Back pain, Abdominal pain, Dizziness, Short of air, Calf pain, Calf swelling Related Surgical History: Reports: None AMI/ACS Risk Factors: Reports: None TAD Risk Factors: Reports: None Pulmonary Embolism Risk Factors: Reports: None Prior Care for this Complaint: Yes Reproducible Chest Wall Pain: Yes Bilateral Pulses Present: Yes Differential Diagnoses: Chest Wall Pain (at the site of PPM) Review of Systems - Review Of Systems Constitutional: Reports: No symptoms Eyes: Reports: No symptoms Ears, Nose, Mouth, Throat: Reports: No symptoms Respiratory: Reports: No symptoms Cardiac: Reports: Chest pain GI: Reports: No symptoms : Reports: No symptoms Musculoskeletal: Reports: No symptoms Skin: Reports: No symptoms Neurological: Reports: No symptoms Endocrine: Reports: No symptoms Hematologic/Lymphatic: Reports: No symptoms All Other Systems: Reviewed and Negative Past Medical History - Past Medical History Previously Healthy: No Endocrine: Reports: Dyslipidemia, Other (recurrent shingles, ) Cardiovascular: Reports: [place], Hypertension, CHF, A-Fib Respiratory: Reports: PE (pulmonay emboli) Hematological: Reports: Anemia, Other (PE on coumadine) Gastrointestinal: Reports: GERD Genitourinary: Reports: UTI (ecoli with sepsis), Kidney stones, CKD, Other ( ecoli with sepsis) Neuro/Psych: Reports: Migraine, Seizure, Anxiety, Other (recurrent shingles,) Musculoskeletal: Reports: Arthritis, Back Pain (PATIENT GOES TO PAIN MANAGEMENT) Cancer: Reports: None Last Menstrual Period: PT HAS HAD A HYSTERECTOMY Other Pertinent Past Medical History: pacer last week in [place] per her hx - Surgical History General Surgical History: Reports: Tubal ligation, , Cholecystectomy, Tonsillectomy, Pacemaker (pacemaker 04/24/15), Orthopedic (left lateral release left knee), Other (esophageal dilation, hemorrhoidectomy) - Family History Family History: Reports: Unknown - Social History Smoking Status: Never smoker Hx Substance Use: No (frequent ER visits) Alcohol Screening: None - Immunizations Tetanus Shot up to Date: Yes Physical Exam - Physical Exam Appearance: Well-appearing, No pain distress, Well-nourished Eyes: [place], EOMI, Conjunctiva clear ENT: Ears normal, Nose normal, Oropharynx normal Respiratory: Airway patent, Breath sounds clear, Breath sounds equal, Respirations nonlabored Cardiovascular: RRR, Pulses normal, No rub, No murmur GI/: Soft, Nontender, No masses, Bowel sounds normal, No Organomegaly Musculoskeletal: Normal strength, ROM intact, No edema, No calf tenderness Skin: Warm, Dry, Normal color Neurological: Sensation intact, Motor intact, Reflexes intact, Cranial nerves intact, Alert, Oriented Psychiatric: Affect appropriate, Mood appropriate Interpretation - Radiology Interpretation Radiology Interpretation By: ED Physician Radiology Results: Negative Exam Interpreted: CXR Critical Care Note - Critical Care Note Total Time (mins): 0 Course - Course Orders, Labs, Meds: Orders Category Date Time Status CXR [CHEST, 2 VIEWS PA & LAT] Stat RADS 10/16/16 05:10 Taken Vital Signs: Temp Pulse Resp BP Pulse Ox 10/16/16 04:19 97.6 F 62 20 105/69 100 MIRACLE Risk Score MIRACLE Risk Score: Risk Score Odds of by 30D 0 0.1 (0.1-0.2) 1 0.3 (0.2-0.3) 2 0.4 (0.3-0.5) 3 0.7 (0.6-0.9) 4 1.2 (1.0-1.5) 5 2.2 (1.9-2.6) 6 3.0 (2.5-3.6) 7 4.8 (3.8-6.1) Departure - Departure Time of Disposition: 05:15 Disposition: HOME SELF-CARE Discharge Problem: Chest wall pain Instructions: Chest Wall Pain (ED) Condition: Good Pt referred to PMD for follow-up: Yes Additional Instructions: Keep taking pain meds as prescribed by Pain management keep f/u with [facility]. On CXR Pace maker is in position, Patient demanding the norcotic pain medications, she goes to pain management. Allergies/Adverse Reactions: Allergies aspirin Adverse Reaction (Verified 10/16/16 04:29) cephalexin monohydrate [From Keflex] Adverse Reaction (Verified 10/16/16 04:29) clarithromycin [From Biaxin] Adverse Reaction (Verified 10/16/16 04:29) ketorolac [From Toradol] Adverse Reaction (Verified 10/16/16 04:29) leflunomide [From Arava] Adverse Reaction (Verified 10/16/16 04:29) NSAIDS (Non-Steroidal Anti-Inflamma Adverse Reaction (Verified 10/16/16 04:29) Penicillins Adverse Reaction (Verified 10/16/16 04:29) radioactive dye for stress test Adverse Reaction (Uncoded 10/16/16 04:29) Home Medications: Ambulatory Orders Diazepam [Valium] 10 mg PO TID PRN 09/25/13 Clonidine HCl [Catapres] 0.1 mg PO TID 08/17/14 Lisinopril [Zestril] 40 mg PO BID 11/03/14 Metoprolol Tartrate [Lopressor] 50 mg PO BID 12/11/14 Furosemide [Lasix Tab] 40 mg PO DAILY PRN 10/02/15 Warfarin Sodium [Coumadin] 10 mg PO EVERY OTHER DAY 12/19/15 Oxycodone HCl [Oxycodone] 10 mg PO Q6H PRN 04/29/16 Warfarin Sodium [Coumadin] 7.5 mg PO EVERY OTHER DAY 08/01/16 Amlodipine Besylate [Norvasc] 10 mg PO DAILY 09/21/16 Disposition Discussed With: Patient
--- NOTE | 2016-10-16 05:42 | DI ---
EXAM: Chest, two views, 10/16/2016 HISTORY: Chest pain COMPARISON: 10/10/2016 FINDINGS / IMPRESSION: Cardiomediastinal countours appear stable. There is no focal pulmonary cons olidation. No pleural effusion or pneumothorax. No acute cardiopulmonary process. . Left-sided pacer device is in place.
== END 2016-10-16 05:33 | disposition home or self-care (01) ==
LOC: ED 04:17
DX: R07.89 Other chest pain (principal); Z95.0 Presence of cardiac pacemaker; R60.0 Localized edema; M79.602 Pain in left arm; Z98.890 Other specified postprocedural states; Z86.718 Personal history of other venous thrombosis and embolism; Z79.01 Long term (current) use of anticoagulants; Z79.899 Other long term (current) drug therapy; Z86.711 Personal history of pulmonary embolism
CPT/HCPCS: 96372; 99283; 99285

== ENCOUNTER 2016-10-16 20:20 | Emergency (ER) ==
[2016-10-16 20:23] VITALS: BMI 36.8
--- NOTE | 2016-10-16 20:31 | ED.PDOC ---
General ED Provider: Dr. 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 and he told me to get checked for a blood clot in my arm Time Seen by Physician: 20:30 Mode of Arrival: Walk-In Information Source: Patient Nursing and Triage Documentation Reviewed and Agree: Yes Musculoskeletal Complaint Exam - Upper Extremity Complaint/Exam Location of Pain: Reports: Left, Arm Mechanism of Injury: Reports: No known trauma Onset/Duration: several days Symptoms Are: Still present Timing: Constant Initial Severity: Mild Current Severity: Mild Location: Reports: Discrete (left arm) Character: Reports: Dull, Aching Aggravating: Reports: Movement, Lifting, Flexion, Extension Alleviating: Reports: None Non-Orthopedic Risk Factors: Reports: Referred pain from chest DVT Risk Factors: Reports: Prior DVT Septic Arthritis Risk Factors: Reports: None Related Surgical History: Reports: None Upper Extremity Findings: Present: Swelling, Ecchymosis, Tenderness, Limited range of motion NV Bundle Intact Distal to Injury: Yes Compartment Syndrome Risk Factors: Present: Pain Differential Diagnoses: Other Review of Systems - Review Of Systems Constitutional: Reports: No symptoms Eyes: Reports: No symptoms Ears, Nose, Mouth, Throat: Reports: No symptoms Respiratory: Reports: No symptoms Cardiac: Reports: No symptoms GI: Reports: No symptoms : Reports: No symptoms Musculoskeletal: Reports: Muscle pain Skin: Reports: No symptoms Neurological: Reports: No symptoms Endocrine: Reports: No symptoms Hematologic/Lymphatic: Reports: No symptoms All Other Systems: Reviewed and Negative Past Medical History - Past Medical History Previously Healthy: No Endocrine: Reports: Dyslipidemia, Other (recurrent shingles, ) Cardiovascular: Reports: [place], Hypertension, CHF, A-Fib Respiratory: Reports: PE (pulmonay emboli) Hematological: Reports: Anemia, Other (PE on coumadine) Gastrointestinal: Reports: GERD Genitourinary: Reports: UTI (ecoli with sepsis), Kidney stones, CKD, Other ( ecoli with sepsis) Neuro/Psych: Reports: Migraine, Seizure, Anxiety, Other (recurrent shingles,) Musculoskeletal: Reports: Arthritis, Back Pain (PATIENT GOES TO PAIN MANAGEMENT) Cancer: Reports: None Other Pertinent Past Medical History: pacer last week in [place] per her hx - Surgical History General Surgical History: Reports: Tubal ligation, , Cholecystectomy, Tonsillectomy, Pacemaker (pacemaker 04/24/15), Orthopedic (left lateral release left knee), Other (esophageal dilation, hemorrhoidectomy) - Family History Family History: Reports: Unknown - Social History Smoking Status: Never smoker Hx Substance Use: No (frequent ER visits) Alcohol Screening: None Lives: With family Physical Exam - Physical Exam Appearance: Well-appearing, No pain distress, Well-nourished Pain Distress: Mild Eyes: [place], EOMI, Conjunctiva clear ENT: Ears normal, Nose normal, Oropharynx normal Neck: Supple Respiratory: Airway patent Cardiovascular: RRR, Pulses normal, No rub, No murmur GI/: Soft, Nontender, No masses, Bowel sounds normal, No Organomegaly Musculoskeletal: Limited ROM Skin: Warm Neurological: Sensation intact, Motor intact, Reflexes intact, Cranial nerves intact, Alert, Oriented Psychiatric: Affect appropriate Physician Notification - Case Discussed Physician Notified: dr gonzalez--agreed to see in er for left upper extremity swelling Time of Notification: 20:32 Critical Care Note - Critical Care Note Total Time (mins): 0 Departure - Departure Time of Disposition: 20:32 Disposition: TSF SHORT-TRM HOSP Discharge Problem: Edema of the upper extremity Instructions: Arm Pain (ED) Condition: Fair Pt referred to PMD for follow-up: No Allergies/Adverse Reactions: Allergies aspirin Adverse Reaction (Verified 10/16/16 04:29) cephalexin monohydrate [From Keflex] Adverse Reaction (Verified 10/16/16 04:29) clarithromycin [From Biaxin] Adverse Reaction (Verified 10/16/16 04:29) ketorolac [From Toradol] Adverse Reaction (Verified 10/16/16 04:29) leflunomide [From Arava] Adverse Reaction (Verified 10/16/16 04:29) NSAIDS (Non-Steroidal Anti-Inflamma Adverse Reaction (Verified 10/16/16 04:29) Penicillins Adverse Reaction (Verified 10/16/16 04:29) radioactive dye for stress test Adverse Reaction (Uncoded 10/16/16 04:29) Home Medications: Ambulatory Orders Diazepam [Valium] 10 mg PO TID PRN 09/25/13 Clonidine HCl [Catapres] 0.1 mg PO TID 08/17/14 Lisinopril [Zestril] 40 mg PO BID 11/03/14 Metoprolol Tartrate [Lopressor] 50 mg PO BID 12/11/14 Furosemide [Lasix Tab] 40 mg PO DAILY PRN 10/02/15 Warfarin Sodium [Coumadin] 10 mg PO EVERY OTHER DAY 12/19/15 Oxycodone HCl [Oxycodone] 10 mg PO Q6H PRN 04/29/16 Warfarin Sodium [Coumadin] 7.5 mg PO EVERY OTHER DAY 08/01/16 Amlodipine Besylate [Norvasc] 10 mg PO DAILY 09/21/16 Transfer Form Completed: Yes Disposition Discussed With: Patient
[2016-10-16 20:33] VITALS: BP 128/87; TEMP 99.2
[2016-10-16] MEDS: PHENERGAN 25 MG/ML VIAL IM STA (21:46)
[2016-10-16] MEDS: DILAUDID 2 MG/ML SYRINGE IM STA (21:46)
== END 2016-10-16 22:56 | disposition short-term general hospital (02) ==
LOC: ED 20:20
DX: R60.0 Localized edema (principal); M79.602 Pain in left arm; Z98.890 Other specified postprocedural states; Z95.0 Presence of cardiac pacemaker; Z86.718 Personal history of other venous thrombosis and embolism; Z79.01 Long term (current) use of anticoagulants; Z79.899 Other long term (current) drug therapy; Z86.711 Personal history of pulmonary embolism
CPT/HCPCS: 96372; 99285

== ENCOUNTER 2016-10-16 22:58 | Outpatient (CLI) ==
[2012-09-14 05:37] VITALS: TEMP 97.6
[2016-10-16 20:23] VITALS: BMI 36.8
== END 2016-10-16 22:59 | disposition home or self-care (01) ==
LOC: AMBL 22:58
PROVIDERS: ATTEND Family Medicine
DX: M79.622 Pain in left upper arm (principal); R22.32 Localized swelling, mass and lump, left upper limb; R20.0 Anesthesia of skin

== ENCOUNTER 2016-10-21 12:53 | Emergency (ER) ==
[2016-10-21 13:05] VITALS: BP 115/74; TEMP 97.7; BMI 37.4
--- NOTE | 2016-10-21 13:38 | ED.PDOC ---
General ED Provider: Dr. ROMAN KEATING JR Chief Complaint: Respiratory Complaint Stated Complaint: Cough, runny nose, swollen glands x 3 days. Has taken Benadryl et tylenol. Sore throat. States has dissolving packet of clindamycin under skin at left chest pacemaker site. Due to finish/ dissolve on 11/05[End] 97.7 66 20 97% 115/74 09/21 Time Seen by Physician: 14:01 Mode of Arrival: Walk-In Information Source: Patient Exam Limitations: No limitations Nursing and Triage Documentation Reviewed and Agree: No Review of Systems - Review Of Systems Constitutional: Reports: Malaise, Weakness Eyes: Reports: No symptoms Ears, Nose, Mouth, Throat: Reports: Nose pain, Throat pain, Throat swelling Respiratory: Reports: Cough Cardiac: Reports: No symptoms GI: Reports: No symptoms : Reports: No symptoms Musculoskeletal: Reports: No symptoms Skin: Reports: No symptoms Neurological: Reports: No symptoms Endocrine: Reports: No symptoms Hematologic/Lymphatic: Reports: No symptoms All Other Systems: Other Past Medical History - Past Medical History Previously Healthy: No Endocrine: Reports: Dyslipidemia, Other (recurrent shingles, ) Cardiovascular: Reports: CAD, [place], Hypertension, CHF, A-Fib, Other (Stiff Heart Ds.) Respiratory: Reports: PE (pulmonay emboli) Hematological: Reports: Anemia, Other (PE on coumadine) Gastrointestinal: Reports: GERD Genitourinary: Reports: UTI (ecoli with sepsis), Kidney stones, CKD, Other ( ecoli with sepsis) Neuro/Psych: Reports: Migraine, Seizure, Anxiety, Other (recurrent shingles,) Musculoskeletal: Reports: Arthritis, Back Pain (PATIENT GOES TO PAIN MANAGEMENT) Cancer: Reports: None Other Pertinent Past Medical History: recurrent shingles, ecoli with sepsis - Surgical History General Surgical History: Reports: Hysterectomy (HYSTERECTOMY 12/02/15), Tubal ligation, , Cholecystectomy, Tonsillectomy, Pacemaker (pacemaker ;PACEMAKER REVISAL SEPTEMBER 2016), Orthopedic (left lateral release left knee), Other (esophageal dilation, hemorrhoidectomy) - Family History Family History: Reports: Unknown - Social History Smoking Status: Never smoker Hx Substance Use: No (frequent ER visits) Alcohol Screening: None Physical Exam - Physical Exam Appearance: Well-appearing, Obese Ill-appearing: Mild Pain Distress: Mild Eyes: [place], EOMI, Conjunctiva clear ENT: Ears normal, Nose normal, Oropharynx normal Neck: Supple Respiratory: Airway patent, Breath sounds equal, Breath sounds diminished, Respirations nonlabored, Rhonchi Cardiovascular: RRR, Pulses normal, No rub, No murmur GI/: Soft, Nontender, No masses, Bowel sounds normal, No Organomegaly Musculoskeletal: Normal strength, ROM intact, No edema, No calf tenderness Skin: Warm, Dry, Normal color Neurological: Sensation intact, Motor intact, Reflexes intact, Cranial nerves intact, Alert, Oriented Psychiatric: Affect appropriate, Mood appropriate Interpretation - Radiology Interpretation Radiology Interpretation By: Radiologist Radiology Results: Negative Exam Interpreted: CXR Re-Evaluation - Re-Evaluation Time of Re-Evaluation: 14:36 Status: Unchanged (11/17/14 RX for Robitussin AC) Critical Care Note - Critical Care Note Total Time (mins): 0 Course - Course Orders, Labs, Meds: Lab Review 10/21/16 13:42 Influenza A (Rapid) Negative Influenza B (Rapid) Negative Orders Category Date Time Status FLU A & B RAPID TEST [RAPID FLU A/B] Stat LAB 10/21/16 13:42 Completed MOLECULAR GROUP A STREP Stat LAB 10/21/16 13:42 Results STREP SCREEN Stat LAB 10/21/16 13:42 Results CHEST, 2 VIEWS PA & LAT Stat RADS 10/21/16 13:38 Completed Vital Signs: Temp Pulse Resp BP Pulse Ox 10/21/16 12:55 97.7 F 66 20 115/74 97 Departure - Departure Time of Disposition: 14:37 Disposition: HOME SELF-CARE Discharge Problem: URTI (acute upper respiratory infection) Instructions: Upper Respiratory Infection (ED) Condition: Good Pt referred to PMD for follow-up: Yes Additional Instructions: follow up at Dr Hoyt' office - call for recheck after ER visit return if fever over 101.0 callPMD office inform of visit may use Robitussin AC for cough as prescribed before Prescriptions: Guaifenesin/Codeine Phosphate [Robitussin AC Syrup] 10 ml PO Q6H PRN #240 ml PRN Reason: Cough Allergies/Adverse Reactions: Allergies aspirin Adverse Reaction (Verified 10/21/16 13:40) cephalexin monohydrate [From Keflex] Adverse Reaction (Verified 10/21/16 13:40) clarithromycin [From Biaxin] Adverse Reaction (Verified 10/21/16 13:40) ketorolac [From Toradol] Adverse Reaction (Verified 10/21/16 13:40) leflunomide [From Arava] Adverse Reaction (Verified 10/21/16 13:40) NSAIDS (Non-Steroidal Anti-Inflamma Adverse Reaction (Verified 10/21/16 13:40) Penicillins Adverse Reaction (Verified 10/21/16 13:40) radioactive dye for stress test Adverse Reaction (Uncoded 10/16/16 20:36) Home Medications: Ambulatory Orders Diazepam [Valium] 10 mg PO TID PRN 09/25/13 Clonidine HCl [Catapres] 0.1 mg PO TID 08/17/14 Lisinopril [Zestril] 40 mg PO BID 11/03/14 Metoprolol Tartrate [Lopressor] 50 mg PO BID 12/11/14 Furosemide [Lasix Tab] 40 mg PO DAILY PRN 10/02/15 Warfarin Sodium [Coumadin] 10 mg PO EVERY OTHER DAY 12/19/15 Oxycodone HCl [Oxycodone] 10 mg PO Q6H PRN 04/29/16 Warfarin Sodium [Coumadin] 7.5 mg PO EVERY OTHER DAY 08/01/16 Amlodipine Besylate [Norvasc] 10 mg PO DAILY 09/21/16 Guaifenesin/Codeine Phosphate [Robitussin AC Syrup] 10 ml PO Q6H PRN #240 ml 11/29
--- NOTE | 2016-10-21 14:06 | DI ---
EXAM: Two views of the chest. History: Cough. Comparison: Chest radiograph 10/16/2016 Findings: Heart size is normal. No focal consolidation. No appreciable pleural fluid and no pneum othorax. Pacer device. No acute osseous abnormalities. Impression: No acute cardiopulmonary process. No change compared to the prior study.
[2016-10-21 14:07] LABS: FLU INTERNAL QC INTERNAL QC VALID; RAPID FLU A NEGATIVE (NEGATIVE); RAPID FLU B NEGATIVE (NEGATIVE)
== END 2016-10-21 14:58 | disposition home or self-care (01) ==
LOC: ED 12:53
DX: J06.9 Acute upper respiratory infection, unspecified (principal); Z95.0 Presence of cardiac pacemaker
CPT/HCPCS: 87651; 87804; 87880; 99283

== ENCOUNTER 2016-10-23 14:18 | Outpatient (CLI) ==
[2012-09-14 05:37] VITALS: TEMP 97.6
[2016-10-23 17:30] LABS: PROTHROMBIN TIME 44.6 SEC (9.3-11.0)
== END 2016-10-23 14:19 | disposition home or self-care (01) ==
LOC: LAB 14:18
PROVIDERS: ATTEND Internal Medicine Hematology & Oncology
DX: Z86.718 Personal history of other venous thrombosis and embolism (principal)
CPT/HCPCS: 36415; 85610

== ENCOUNTER 2016-10-29 12:58 | Outpatient (CLI) ==
[2012-09-14 05:37] VITALS: TEMP 97.6
[2016-10-29 13:43] LABS: PROTHROMBIN TIME 34.3 SEC (9.3-11.0)
== END 2016-10-29 12:59 | disposition home or self-care (01) ==
LOC: LAB 12:58
PROVIDERS: ATTEND Internal Medicine Hematology & Oncology
DX: Z86.718 Personal history of other venous thrombosis and embolism (principal)
CPT/HCPCS: 36415; 85610

== ENCOUNTER 2016-11-26 12:39 | Outpatient (CLI) ==
[2012-09-14 05:37] VITALS: TEMP 97.6
== END 2016-11-26 12:40 | disposition home or self-care (01) ==
LOC: LAB 12:39
PROVIDERS: ATTEND Internal Medicine Hematology & Oncology
DX: Z86.718 Personal history of other venous thrombosis and embolism (principal)
CPT/HCPCS: 36415; 85610

== ENCOUNTER 2016-12-26 01:10 | Emergency (ER) ==
[2016-12-26 01:30] VITALS: BP 125/82; TEMP 99.4; BMI 37.8
[2016-12-26 01:48] LABS: BILIRUBIN,URINE Negative (NEGATIVE); KETONES,URINE Negative (NEGATIVE); LEUKOCYTE ESTERASE ,URINE 1+ (NEGATIVE); NITRITE,URINE Negative (NEGATIVE); PROTEIN,URINE Negative (NEGATIVE); URINE, BLOOD Negative (NEGATIVE)
[2016-12-26 01:51] LABS: ADD URINE MICROSCOPIC YES
--- NOTE | 2016-12-26 01:58 | ED.PDOC ---
General ED Provider: Dr. CLEMENTE BERNAL Chief Complaint: Kidney Stone Stated Complaint: Has frequency and urgency of urination. Time Seen by Physician: 01:54 Mode of Arrival: Walk-In Information Source: Patient Nursing and Triage Documentation Reviewed and Agree: Yes GI Complaint Exam - Abdominal Pain Complaint/Exam Onset: Gradual Symptoms Are: Still present Timing: Constant Initial Severity: Mild Current Severity: Mild Location of Pain: LLQ Radiates To: Reports: Flank Character: Reports: Dull, Aching Aggravating: Reports: Movement Alleviating: Reports: None Associated Signs and Symptoms: Reports: Dysuria, Urinary frequency. Denies: Diaphoresis, Fever, Cough, Chest pain, Dizziness, Back pain, Constipation, Blood in stool, Decreased urine output, Decreased appetite, Vaginal bleeding, Vaginal discharge, Nausea, Vomiting, Diarrhea, Sore throat, Decreased activity Related History: Reports: Similar episode AAA Risk Factors: Reports: None Cardiac Risk Factors: Reports: Hypertension, CAD, CHF Ectopic Risk Factors: Reports: None Ovarian Torsion Risk Factors: Reports: None Surgical Obstruction Risk Factors: Reports: None Related Surgical History: Reports: None Patient Rh Status: Unknown Abdominal Findings: Present: None Differential Diagnoses: UTI Review of Systems - Review Of Systems Constitutional: Reports: No symptoms Eyes: Reports: No symptoms Ears, Nose, Mouth, Throat: Reports: No symptoms Respiratory: Reports: No symptoms Cardiac: Reports: No symptoms GI: Reports: No symptoms : Reports: Burning, Dysuria, Hematuria Musculoskeletal: Reports: No symptoms Skin: Reports: No symptoms Neurological: Reports: No symptoms Endocrine: Reports: No symptoms Hematologic/Lymphatic: Reports: No symptoms All Other Systems: Reviewed and Negative Past Medical History - Past Medical History Previously Healthy: No Endocrine: Reports: Dyslipidemia, Other (recurrent shingles, ) Cardiovascular: Reports: CAD, [place], Hypertension, CHF, A-Fib, Other (Stiff Heart Ds.) Respiratory: Reports: PE (pulmonay emboli) Hematological: Reports: Anemia, Other (PE on coumadine) Gastrointestinal: Reports: GERD Genitourinary: Reports: UTI (ecoli with sepsis), Kidney stones, CKD, Other ( ecoli with sepsis) Neuro/Psych: Reports: Migraine, Seizure, Anxiety, Other (recurrent shingles,) Musculoskeletal: Reports: Arthritis, Back Pain (PATIENT GOES TO PAIN MANAGEMENT) Cancer: Reports: None Last Menstrual Period: 11/28 hysterectomy Other Pertinent Past Medical History: recurrent shingles, ecoli with sepsis - Surgical History General Surgical History: Reports: Hysterectomy (HYSTERECTOMY 12/02/15), Tubal ligation, , Cholecystectomy, Tonsillectomy, Pacemaker (pacemaker ;PACEMAKER REVISAL SEPTEMBER 2016), Orthopedic (left lateral release left knee), Other (esophageal dilation, hemorrhoidectomy) - Family History Family History: Reports: Unknown - Social History Smoking Status: Never smoker Hx Substance Use: No (frequent ER visits) Alcohol Screening: None - Immunizations Tetanus Shot up to Date: Yes Physical Exam - Physical Exam Appearance: Well-appearing, No pain distress, Well-nourished Eyes: [place], EOMI, Conjunctiva clear ENT: Ears normal, Nose normal, Oropharynx normal Respiratory: Airway patent, Breath sounds clear, Breath sounds equal, Respirations nonlabored Cardiovascular: RRR, Pulses normal, No rub, No murmur GI/: Soft, Nontender, No masses, Bowel sounds normal, No Organomegaly Musculoskeletal: Normal strength, ROM intact, No edema, No calf tenderness Skin: Warm, Dry, Normal color Neurological: Sensation intact, Motor intact, Reflexes intact, Cranial nerves intact, Alert, Oriented Psychiatric: Affect appropriate, Mood appropriate Critical Care Note - Critical Care Note Total Time (mins): 0 Course - Course Orders, Labs, Meds: Lab Review 12/26/16 01:40 Urine Color Yellow Urine Clarity Clear Urine pH 7.0 Ur Specific [place] 1.010 Urine Protein Negative Urine Glucose (UA) Negative Urine Ketones Negative Urine Blood Negative Urine Nitrite Negative Urine Bilirubin Negative Urine Urobilinogen 0.2 Ur Leukocyte Esterase 1+ Urine Microscopic WBC 0-2 Ur Squamous Epith Cells Not present Orders Category Date Time Status UA [URINALYSIS C & S IF INDICATED] Stat LAB 12/26/16 01:40 Completed Vital Signs: Temp Pulse Resp BP Pulse Ox 12/26/16 01:11 99.4 F 68 20 125/82 96 Departure - Departure Time of Disposition: 02:01 Disposition: HOME SELF-CARE Discharge Problem: UTI (urinary tract infection) Qualifiers: Urinary tract infection type: acute cystitis Hematuria presence: without hematuria Qualified Code(s): N30.00 - Acute cystitis without hematuria Instructions: Urinary Tract Infection in Women (ED) Condition: Good Pt referred to PMD for follow-up: Yes Additional Instructions: Increase hydration Take medication with food. Probiotics yogurt Prescriptions: Nitrofurantoin Macrocrystal [Macrodantin] 100 mg PO BID #14 capsule Allergies/Adverse Reactions: Allergies aspirin Adverse Reaction (Verified 12/26/16 01:21) cephalexin monohydrate [From Keflex] Adverse Reaction (Verified 12/26/16 01:21) clarithromycin [From Biaxin] Adverse Reaction (Verified 12/26/16:21) ketorolac [From Toradol] Adverse Reaction (Verified 12/26/16:21) leflunomide [From Arava] Adverse Reaction (Verified 12/26/16 01:21) NSAIDS (Non-Steroidal Anti-Inflamma Adverse Reaction (Verified 12/26/16:21) Penicillins Adverse Reaction (Verified 12/26/16:21) radioactive dye for stress test Adverse Reaction (Uncoded 12/26/16:21) Home Medications: Ambulatory Orders Diazepam [Valium] 10 mg PO TID PRN 09/25/13 Clonidine HCl [Catapres] 0.1 mg PO TID 08/17/14 Lisinopril [Zestril] 40 mg PO BID 11/03/14 Metoprolol Tartrate [Lopressor] 50 mg PO BID 12/11/14 Furosemide [Lasix Tab] 40 mg PO DAILY PRN 10/02/15 Warfarin Sodium [Coumadin] 10 mg PO EVERY OTHER DAY 12/19/15 Oxycodone HCl [Oxycodone] 10 mg PO Q6H PRN 04/29/16 Warfarin Sodium [Coumadin] 7.5 mg PO EVERY OTHER DAY 08/01/16 Amlodipine Besylate [Norvasc] 10 mg PO DAILY 09/21/16 Guaifenesin/Codeine Phosphate [Robitussin AC Syrup] 10 ml PO Q6H PRN #240 ml 11/29 Nitrofurantoin Macrocrystal [Macrodantin] 100 mg PO BID #14 capsule 12/26/16 Disposition Discussed With: Patient
[2016-12-26] MEDS: MACROBID PO STA (02:19)
[2016-12-26 02:20] LABS: BASOPHILS # (AUTO) 0.1 K/uL (0-0.2); BASOPHILS % (AUTO) 0.8 % (0.0-3.0); EOSINOPHILS # (AUTO) 0.3 K/ul (0.0-0.7); HEMATOCRIT 37.9 % (37.0-47.0); HEMOGLOBIN 12.8 g/dl (12.0-16.0); IMMATURE GRANULOCYTE % (AUTO) 0.5 % (0.0-5.0); LYMPHOCYTES # (AUTO) 2.7 K/uL (0.60-3.4); LYMPHOCYTES % (AUTO) 41.7 (10.0-50.0); MEAN CORPUSCULAR HEMOGLOBIN 30.3 pg (27.0-31.0); MEAN CORPUSCULAR HGB CONC 33.8 (31.8-35.4); MEAN CORPUSCULAR VOLUME 89.8 fl (81.0-99.0); MONOCYTES # (AUTO) 0.6 K/uL (0.4-2.0); NEUTROPHILS # (AUTO) 2.9 K/ul (2.0-6.9); PLATELET COUNT 210 10^3/uL (140-440); RED BLOOD COUNT 4.22 10^6/ul (4.20-5.40); WHITE BLOOD COUNT 6.54 K/ul (4.6-10.2)
[2016-12-26 02:36] LABS: PROTHROMBIN TIME 26.5 SEC (9.3-11.0)
[2016-12-26 02:39] LABS: ALBUMIN 3.7 g/dL (3.4-5.0); ALBUMIN/GLOBULIN RATIO 1.03; ANION GAP 11.4; BILIRUBIN,TOTAL 0.3 mg/dL (0.00-1.20); CREATININE 1.5 mg/dL (0.60-1.30); POTASSIUM 3.4 mmol/L (3.5-5.10); TOTAL PROTEIN 7.3 g/dL (6.4-8.2)
[2016-12-26] MEDS: K-DUR ONE (03:05)
[2016-12-26] MEDS: K-DUR PO STA (04:13)
== END 2016-12-26 03:10 | disposition home or self-care (01) ==
LOC: ED 01:10
DX: N30.00 Acute cystitis without hematuria (principal); I10 Essential (primary) hypertension; I25.10 Atherosclerotic heart disease of native coronary artery without angina pectoris; I50.9 Heart failure, unspecified; I25.2 Old myocardial infarction; Z87.442 Personal history of urinary calculi; Z79.01 Long term (current) use of anticoagulants; Z79.899 Other long term (current) drug therapy
CPT/HCPCS: 36415; 80053; 81001; 85025; 85610; 99283

== ENCOUNTER 2017-01-03 03:58 | Emergency (ER) ==
[2017-01-03 04:13] VITALS: BP 107/66; TEMP 97.3; BMI 36.8
[2017-01-03 04:45] LABS: BILIRUBIN,URINE 1+ (NEGATIVE); KETONES,URINE Trace (NEGATIVE); LEUKOCYTE ESTERASE ,URINE Trace (NEGATIVE); NITRITE,URINE Negative (NEGATIVE); PH,URINE 5.5 (5-9); PROTEIN,URINE 1+ (NEGATIVE); URINE, BLOOD Negative (NEGATIVE)
[2017-01-03 04:47] LABS: ADD URINE MICROSCOPIC YES
[2017-01-03] MEDS ORDERED: ZOFRAN ODT PO STA (04:47)
[2017-01-03 04:51] LABS: BACTERIA,URINE TRACE (NOT PRESENT)
--- NOTE | 2017-01-03 05:08 | ED.PDOC ---
General ED Provider: Dr. JOSE TOLENTINO Chief Complaint: Extremity Swelling/Pain Stated Complaint: Patient complains of left groin pain. Thinks she may have a blood clot. She is already on Blood thiners with INR just checked last week was 3. Denies any shortness of breath. Vomited whien she tried to take pain medications. Has already had a hysterctomy. Bowels move everyday. Time Seen by Physician: 05:00 Mode of Arrival: Walk-In Information Source: Patient Exam Limitations: No limitations Nursing and Triage Documentation Reviewed and Agree: Yes Musculoskeletal Complaint Exam - Lower Extremity Complaint/Exam Location of Pain: Reports: Left Mechanism of Injury: Reports: No known trauma Onset/Duration: 2 days Symptoms Are: Still present Initial Severity: Mild Current Severity: Moderate Location: Reports: Diffuse (left upper thigh to groin area ) Character: Reports: Aching, Throbbing Alleviating: Reports: None Aggravating: Reports: Movement Able to Bear Weight: Yes DVT Risk Factors: Reports: None (already on warfin ) Septic Arthritis Risk Factors: Reports: None Related Surgical History: Reports: None Lower Extremity Findings: Present: Swelling NV Bundle Intact Distal to Injury: Yes Compartment Syndrome Risk Factors: Present: Pain. Absent: Paralysis, Pallor, Pulselessness, Paresthesias Kelsey's Sign Present: No Lower Extremities Picture: 1 - area of pain and tendeness Differential Diagnoses: Arthritis, Sciatica, Strain, Sprain, Other ( Diverticulitis) Review of Systems - Review Of Systems Constitutional: Reports: No symptoms Eyes: Reports: No symptoms Ears, Nose, Mouth, Throat: Reports: No symptoms Respiratory: Reports: No symptoms Cardiac: Reports: No symptoms GI: Reports: Abdominal pain, Nausea, Vomiting : Reports: No symptoms Musculoskeletal: Reports: Joint pain, Muscle pain Skin: Reports: No symptoms Neurological: Reports: No symptoms Endocrine: Reports: No symptoms Hematologic/Lymphatic: Reports: No symptoms All Other Systems: Reviewed and Negative Past Medical History - Past Medical History Previously Healthy: No Endocrine: Reports: Dyslipidemia, Other (recurrent shingles, ) Cardiovascular: Reports: CAD, [place], Hypertension, CHF, A-Fib, Other (Stiff Heart Ds.) Respiratory: Reports: PE (pulmonay emboli) Hematological: Reports: Anemia, Other (PE on coumadine) Gastrointestinal: Reports: GERD Genitourinary: Reports: UTI (ecoli with sepsis), Kidney stones, CKD, Other ( ecoli with sepsis) Neuro/Psych: Reports: Migraine, Seizure, Anxiety, Other (recurrent shingles,) Musculoskeletal: Reports: Arthritis, Back Pain (PATIENT GOES TO PAIN MANAGEMENT) Cancer: Reports: None Last Menstrual Period: PT HAS HAD A HYSTERECTOMY Other Pertinent Past Medical History: recurrent shingles, ecoli with sepsis - Surgical History General Surgical History: Reports: Hysterectomy (HYSTERECTOMY 12/02/15), Tubal ligation, , Cholecystectomy, Tonsillectomy, Pacemaker (pacemaker ;PACEMAKER REVISAL SEPTEMBER 2016), Orthopedic (left lateral release left knee), Other (esophageal dilation, hemorrhoidectomy) - Family History Family History: Reports: Unknown - Social History Smoking Status: Never smoker Hx Substance Use: No (frequent ER visits) Alcohol Screening: None - Immunizations Tetanus Shot up to Date: Yes Physical Exam - Physical Exam Appearance: Ill-appearing, Obese Ill-appearing: Mild Pain Distress: Moderate Neck: Supple Respiratory: Airway patent, Breath sounds clear, Breath sounds equal, Respirations nonlabored Cardiovascular: RRR, Pulses normal, No rub, No murmur GI/: Soft, Tender (left lower quadrant ) Musculoskeletal: Normal strength Skin: Warm, Dry, Normal color Neurological: Sensation intact, Motor intact, Cranial nerves intact, Alert, Oriented Psychiatric: Anxious Critical Care Note - Critical Care Note Total Time (mins): 0 Comments: Refused to have a CT of abdomen done. Course - Course Orders, Labs, Meds: Lab Review 01/03/17 04:30 Urine Color Yellow Urine Clarity Clear Urine pH 5.5 Ur Specific [place] 1.020 Urine Protein 1+ Urine Glucose (UA) Negative Urine Ketones Trace Urine Blood Negative Urine Nitrite Negative Urine Bilirubin 1+ Urine Urobilinogen 1.0 Ur Leukocyte Esterase Trace Urine Microscopic WBC 5-10 Ur Squamous Epith Cells 2-5 Urine Bacteria Trace Urine Mucus 1+ Orders Category Date Time Status UA [URINALYSIS C & S IF INDICATED] Stat LAB 01/03/17 04:30 Completed URINE CULTURE Stat LAB 01/03/17 04:51 Received Ondansetron [Zofran Odt] MEDS 01/03/17 04:47 Discontinued 4 mg PO ONCE STA Medications Discontinued Medications Generic Name Dose Route Start Last Admin Trade Name Freq PRN Reason Stop Dose Admin Ondansetron HCl 4 mg 01/03/17 04:47 01/03/17 04:53 Zofran Odt PO 01/03/17 04:48 4 mg ONCE STA Administration Vital Signs: Temp Pulse Resp BP Pulse Ox 01/03/17 04:00 97.3 F L 71 20 107/66 97 Departure - Departure Time of Disposition: 05:07 Disposition: HOME SELF-CARE Discharge Problem: Left groin pain Musculoskeletal leg pain Qualifiers: Laterality: left Qualified Code(s): M79.605 - Pain in left leg Instructions: Groin Pain (ED) Condition: Stable Pt referred to PMD for follow-up: Yes Additional Instructions: Continue home medications for pain Follow up with PCP in 3 days. Prescriptions: Ondansetron HCl [Zofran Tab] 4 mg PO Q8H PRN #14 tablet PRN Reason: Nausea / Vomiting Allergies/Adverse Reactions: Allergies aspirin Adverse Reaction (Verified 01/03/17 04:15) cephalexin monohydrate [From Keflex] Adverse Reaction (Verified 01/03/17 04:15) clarithromycin [From Biaxin] Adverse Reaction (Verified 01/03/17 04:15) ketorolac [From Toradol] Adverse Reaction (Verified 01/03/17 04:15) leflunomide [From Arava] Adverse Reaction (Verified 01/03/17 04:15) NSAIDS (Non-Steroidal Anti-Inflamma Adverse Reaction (Verified 01/03/17 04:15) Penicillins Adverse Reaction (Verified 01/03/17 04:15) radioactive dye for stress test Adverse Reaction (Uncoded 01/03/17 04:15) Home Medications: Ambulatory Orders Diazepam [Valium] 10 mg PO TID PRN 09/25/13 Clonidine HCl [Catapres] 0.1 mg PO TID 08/17/14 Lisinopril [Zestril] 40 mg PO BID 11/03/14 Metoprolol Tartrate [Lopressor] 50 mg PO BID 12/11/14 Furosemide [Lasix Tab] 40 mg PO DAILY PRN 10/02/15 Warfarin Sodium [Coumadin] 10 mg PO EVERY OTHER DAY 12/19/15 Oxycodone HCl [Oxycodone] 10 mg PO Q6H PRN 04/29/16 Warfarin Sodium [Coumadin] 7.5 mg PO EVERY OTHER DAY 08/01/16 Amlodipine Besylate [Norvasc] 10 mg PO DAILY 09/21/16 Nitrofurantoin Macrocrystal [Macrodantin] 100 mg PO BID #14 capsule 12/26/16 Ondansetron HCl [Zofran Tab] 4 mg PO Q8H PRN #14 tablet 01/03/17 Disposition Discussed With: Patient
== END 2017-01-03 05:25 | disposition home or self-care (01) ==
LOC: ED 03:58
DX: R10.32 Left lower quadrant pain (principal); M79.605 Pain in left leg; R11.2 Nausea with vomiting, unspecified; Z79.01 Long term (current) use of anticoagulants; Z79.899 Other long term (current) drug therapy
CPT/HCPCS: 81001; 87086; 99283

== ENCOUNTER 2017-01-25 10:55 | Outpatient (CLI) ==
[2012-09-14 05:37] VITALS: TEMP 97.6
[2017-01-25 11:52] LABS: PROTHROMBIN TIME 34.2 SEC (9.3-11.0)
== END 2017-01-25 10:56 | disposition home or self-care (01) ==
LOC: LAB 10:55
PROVIDERS: ATTEND Internal Medicine Hematology & Oncology
DX: Z86.718 Personal history of other venous thrombosis and embolism (principal)
CPT/HCPCS: 36415; 85610

== ENCOUNTER 2017-02-04 19:38 | Emergency (ER) ==
[2017-02-04 19:44] VITALS: TEMP 99.6; BMI 37.0
[2017-02-04] MEDS ORDERED: SODIUM CHLORIDE 1,000 ML IV STA (19:50)
[2017-02-04] MEDS ORDERED: PHENERGAN 25 MG/ML VIAL 25 MG in SODIUM CHLORIDE 50 ML IV STA (19:51)
[2017-02-04] MEDS ORDERED: DILAUDID 1 MG/ML SYRINGE IVP STA ×2 (19:51→21:38)
[2017-02-04] MEDS ORDERED: PHENERGAN 25 MG/ML VIAL ONE (19:57)
[2017-02-04] MEDS: DILAUDID 2 MG/ML SYRINGE ONE ×3 (20:15→21:47)
--- NOTE | 2017-02-04 20:31 | CT ---
EXAM: Noncontrast CT of the abdomen and pelvis HISTORY: Vomiting COMPARISON: 12/29/2016 TECHNIQUE: Noncontrast CT of the abdomen and pelvis FINDINGS: Noncontrast technique limits evaluation of the abdominal viscera. A 1.4 cm superior hepatic lobe hypo density is seen on axial image 20. Some streak artifacts extend through this region. The liver measu res 19 cm craniocaudal. The gallbladder has been removed. The unenhanced spleen, adrenals, kidneys and pancreas are unremarkable. No renal, ureteral or bladder calculi are identified. There is a diverticulum of the second - third portion of the duodenum. No abnormal small bowel dilat ion is identified. Diverticulosis is seen without evidence of diverticulitis. Portions of the ascend ing and transverse colon are underdistended with increased submucosal fat deposition. The appendix i s not abnormally enlarged. The uterus has been removed. Minimal atherosclerotic calcifications are seen. No free air or free fl uid is identified. There is remote fracture of the right inferior pubic ramus and superior pubic viktoriya s. There are mild degenerative changes of the spine. IMPRESSION: No acute intra-abdominal findings. No evidence of urolithiasis. 1.4 cm superior right hepatic lobe hypodensity with streak artifacts in this region. It is uncertain if this represents a true lesion or artifact. Follow up ultrasound is recommended. Mild hepatomegaly. Diverticulosis without evidence of diverticulitis. Increased submucosal fat deposition of the colon which can be a sequelae of remote infection or infla mmation, such as with inflammatory bowel disease.
[2017-02-04 20:34] LABS: BASOPHILS % (AUTO) 0.5 % (0.0-3.0); EOSINOPHILS # (AUTO) 0.1 K/ul (0.0-0.7); EOSINOPHILS % (AUTO) 1.3 % (0.0-7.0); HEMATOCRIT 40.1 % (37.0-47.0); HEMOGLOBIN 14.2 g/dl (12.0-16.0); IMMATURE GRANULOCYTE % (AUTO) 0.3 % (0.0-5.0); LYMPHOCYTES # (AUTO) 1.6 K/uL (0.60-3.4); LYMPHOCYTES % (AUTO) 25.3 (10.0-50.0); MEAN CORPUSCULAR HEMOGLOBIN 30.9 pg (27.0-31.0); MEAN CORPUSCULAR HGB CONC 35.4 (31.8-35.4); MEAN CORPUSCULAR VOLUME 87.2 fl (81.0-99.0); MONOCYTES # (AUTO) 0.5 K/uL (0.4-2.0); MONOCYTES % (AUTO) 7.6 (0-10); PLATELET COUNT 243 10^3/uL (140-440); WHITE BLOOD COUNT 6.21 K/ul (4.6-10.2)
[2017-02-04 20:36] LABS: FLU INTERNAL QC INTERNAL QC VALID; RAPID FLU A NEGATIVE (NEGATIVE); RAPID FLU B NEGATIVE (NEGATIVE)
[2017-02-04 21:01] LABS: PROTHROMBIN TIME 38.9 SEC (9.3-11.0)
[2017-02-04 21:09] LABS: ALANINE AMINOTRANSFERASE 22 U/L (12-78); ALBUMIN/GLOBULIN RATIO 1.08; ALKALINE PHOSPHATASE 77 U/L (42-98); AMYLASE 39 U/L (25-115); ANION GAP 16.5; ASPARTATE AMINO TRANSFERASE 26 U/L (15-37); BILIRUBIN,TOTAL 0.41 mg/dL (0.00-1.20); BLOOD UREA NITROGEN 8 mg/dL (7-18); BUN/CREATININE RATIO 8.16; CALCIUM 9.6 mg/dL (8.2-10.2); CARBON DIOXIDE 20 mmol/L (21-32); CHLORIDE 111 mmol/L (98-107); CREATINE KINASE 187 U/L; CREATININE 0.98 mg/dL (0.60-1.30); GLUCOSE 100 mg/dL (70-110); LIPASE 37 U/L (8-78); POTASSIUM 3.5 mmol/L (3.5-5.10); SODIUM 144 mmol/L (136-145); TOTAL PROTEIN 7.7 g/dL (6.4-8.2)
[2017-02-04 21:12] LABS: ERYTHROCYTE SEDIMENTATION RATE 14 mm/hr (0-20); ESR INTERNAL QC INTERNAL QC VALID
[2017-02-04 21:17] LABS: BILIRUBIN,URINE Negative (NEGATIVE); KETONES,URINE Negative (NEGATIVE); LEUKOCYTE ESTERASE ,URINE Negative (NEGATIVE); NITRITE,URINE Negative (NEGATIVE); PH,URINE 5.5 (5-9); PROTEIN,URINE 1+ (NEGATIVE); URINE, BLOOD Trace-lysed (NEGATIVE)
[2017-02-04 21:19] LABS: ADD URINE MICROSCOPIC YES
[2017-02-04 21:20] LABS: BACTERIA,URINE 1+ (NOT PRESENT)
--- NOTE | 2017-02-04 21:41 | ED.PDOC ---
General ED Provider: Dr. EVANGELISTA PATE-ER Chief Complaint: Nausea/Vomiting Stated Complaint: juanita been throwing up and my belly is crmping--my family has had the stomach bug this week Time Seen by Physician: 21:39 Mode of Arrival: Walk-In Information Source: Patient Exam Limitations: No limitations Nursing and Triage Documentation Reviewed and Agree: Yes GI Complaint Exam - Vomiting/Diarrhea Complaint/Exam Onset/Duration: 12 hrs Symptoms Are: Still present Episodes of Vomiting over last 24 Hours: 6 Episodes of Diarrhea Over Last 24 Hours: 5 Initial Severity: Mild Current Severity: Moderate Character of Vomiting: Reports: Non-bilious Character of Diarrhea: Reports: Watery Aggravating: Reports: None Alleviating: Reports: None Associated Signs and Symptoms: Reports: Abdominal pain, Cramping Recent Positive Test: No Use of Oral Contraceptives: No Use of Depoprovera: No Compliant With Contraceptive Use: No Non-GI Risk Factors: Reports: None Kussmaul Respirations Present: No Differential Diagnoses: Viral Gastroenteritis, Bacterial Gastroenteritis, UTI Review of Systems - Review Of Systems Constitutional: Reports: No symptoms Eyes: Reports: No symptoms Ears, Nose, Mouth, Throat: Reports: No symptoms Respiratory: Reports: No symptoms Cardiac: Reports: No symptoms GI: Reports: Abdominal pain, Diarrhea, Nausea, Vomiting : Reports: No symptoms Musculoskeletal: Reports: No symptoms Skin: Reports: No symptoms Neurological: Reports: No symptoms Endocrine: Reports: No symptoms Hematologic/Lymphatic: Reports: No symptoms All Other Systems: Reviewed and Negative Past Medical History - Past Medical History Previously Healthy: No Endocrine: Reports: Dyslipidemia, Other (recurrent shingles, ) Cardiovascular: Reports: CAD, [place], Hypertension, CHF, A-Fib, Other (Stiff Heart Ds.) Respiratory: Reports: PE (pulmonay emboli) Hematological: Reports: Anemia, Other (PE on coumadine) Gastrointestinal: Reports: GERD Genitourinary: Reports: UTI (ecoli with sepsis), Kidney stones, CKD, Other ( ecoli with sepsis) Neuro/Psych: Reports: Migraine, Seizure, Anxiety, Other (recurrent shingles,) Musculoskeletal: Reports: Arthritis, Back Pain (PATIENT GOES TO PAIN MANAGEMENT) Cancer: Reports: None Last Menstrual Period: NA Other Pertinent Past Medical History: recurrent shingles, ecoli with sepsis - Surgical History General Surgical History: Reports: Hysterectomy (HYSTERECTOMY 12/02/15), Tubal ligation, , Cholecystectomy, Tonsillectomy, Pacemaker (pacemaker ;PACEMAKER REVISAL SEPTEMBER 2016), Orthopedic (left lateral release left knee), Other (esophageal dilation, hemorrhoidectomy) - Family History Family History: Reports: Unknown - Social History Smoking Status: Never smoker Hx Substance Use: No (frequent ER visits) Alcohol Screening: None - Immunizations Tetanus Shot up to Date: Yes Physical Exam - Physical Exam Appearance: Well-appearing, No pain distress, Well-nourished Pain Distress: Moderate Eyes: [place], EOMI, Conjunctiva clear ENT: Ears normal, Nose normal, Oropharynx normal Neck: Supple Respiratory: Airway patent, Breath sounds clear, Breath sounds equal, Respirations nonlabored Cardiovascular: RRR, Pulses normal, No rub, No murmur GI/: Soft, Nontender, No masses, Bowel sounds normal, No Organomegaly Musculoskeletal: Normal strength, ROM intact, No edema, No calf tenderness Skin: Warm Neurological: Sensation intact Psychiatric: Affect appropriate, Mood appropriate Interpretation - Radiology Interpretation Radiology Interpretation By: Radiologist Radiology Results: Negative Exam Interpreted: CT Scan - EKG Interpretation Time of EKG #1: 21:41 Rate: Normal Rhythm: Sinus Ectopy: None [place]: NL ST Segment: Normal Critical Care Note - Critical Care Note Total Time (mins): 0 Course - Course Hematology/Chemistry: 02/04/17 20:30 02/04/17 20:30 Orders, Labs, Meds: Lab Review 02/04/17 02/04/17 02/04/17 19:55 20:30 20:30 WBC 6.21 RBC 4.60 Hgb 14.2 Hct 40.1 MCV 87.2 MCH 30.9 MCHC 35.4 RDW Coeff of Carmelina 13.5 Plt Count 243 Immature Gran % (Auto) 0.3 Neut % (Auto) 65.0 Lymph % (Auto) 25.3 [place] % (Auto) 7.6 Eos % (Auto) 1.3 Baso % (Auto) 0.5 Immature Gran # (Auto) 0.0 Neut # 4.0 Lymph # 1.6 [place] # 0.5 Eos # 0.1 Baso # 0.0 ESR PT INR Sodium 144 Potassium 3.5 Chloride 111 H Carbon Dioxide 20 L Anion Gap 16.5 BUN 8 Creatinine 0.98 Estimated GFR (MDRD) 59.00 BUN/Creatinine Ratio 8.16 Glucose 100 Calcium 9.6 Total Bilirubin 0.41 AST 26 ALT 22 Alkaline Phosphatase 77 Total Creatine Kinase 187 CK-MB (CK-2) 1.0 CK-MB (CK-2) % 0.65417 Troponin I < 0.0100 Total Protein 7.7 Albumin 4.0 Globulin 3.7 Albumin/Globulin Ratio 1.08 Amylase 39 Lipase 37 Urine Color Urine Clarity Urine pH Ur Specific [place] Urine Protein Urine Glucose (UA) Urine Ketones Urine Blood Urine Nitrite Urine Bilirubin Urine Urobilinogen Ur Leukocyte Esterase Urine Microscopic RBC Urine Microscopic WBC Ur Squamous Epith Cells Urine Bacteria Urine Mucus Influenza A (Rapid) Negative Influenza B (Rapid) Negative 02/04/17 02/04/17 02/04/17 20:45 20:45 21:10 WBC RBC Hgb Hct MCV MCH MCHC RDW Coeff of Carmelina Plt Count Immature Gran % (Auto) Neut % (Auto) Lymph % (Auto) [place] % (Auto) Eos % (Auto) Baso % (Auto) Immature Gran # (Auto) Neut # Lymph # [place] # Eos # Baso # ESR 14 PT 38.9 H INR 3.97 H Sodium Potassium Chloride Carbon Dioxide Anion Gap BUN Creatinine Estimated GFR (MDRD) BUN/Creatinine Ratio Glucose Calcium Total Bilirubin AST ALT Alkaline Phosphatase Total Creatine Kinase CK-MB (CK-2) CK-MB (CK-2) % Troponin I Total Protein Albumin Globulin Albumin/Globulin Ratio Amylase Lipase Urine Color Yellow Urine Clarity Clear Urine pH 5.5 Ur Specific [place] 1.020 Urine Protein 1+ Urine Glucose (UA) Negative Urine Ketones Negative Urine Blood Trace-lysed Urine Nitrite Negative Urine Bilirubin Negative Urine Urobilinogen 0.2 Ur Leukocyte Esterase Negative Urine Microscopic RBC 2-5 Urine Microscopic WBC 2-5 Ur Squamous Epith Cells 2-5 Urine Bacteria 1+ Urine Mucus 1+ Influenza A (Rapid) Influenza B (Rapid) Orders Category Date Time Status EKG-(ED ONLY) Stat CARDIO 02/04/17 19:50 Ordered IV [ED IV/MEDIPORT/POWERPORT] .ONCE EMERGENCY 02/04/17 19:50 Active AMYLASE Stat LAB 02/04/17 20:30 Completed CBC W/ AUTO DIFF Stat LAB 02/04/17 20:30 Completed COMPREHENSIVE METABOLIC PANEL Stat LAB 02/04/17 20:30 Completed CREATINE KINASE Stat LAB 02/04/17 20:30 Completed ESR Stat LAB 02/04/17 20:45 Completed LIPASE Stat LAB 02/04/17 20:30 Completed MOLECULAR GROUP A STREP Stat LAB 02/04/17 19:55 Results PT WITH INR Stat LAB 02/04/17 20:45 Completed RAPID FLU A/B Stat LAB 02/04/17 19:55 Completed STREP SCREEN Stat LAB 02/04/17 19:55 Results TROPONIN I Stat LAB 02/04/17 20:30 Completed URINALYSIS C & S IF INDICATED Stat LAB 02/04/17 21:10 Completed URINE CULTURE Stat LAB 02/04/17 21:20 Received 0.9 % Sodium Chloride [Saline Flush] MEDS 02/04/17 19:50 Ordered 1 syr IVF PRN PRN Hydromorphone HCl [Dilaudid 1 mg/ml Syringe] MEDS 02/04/17 19:51 Discontinued 1 mg IVP ONCE STA Hydromorphone HCl [Dilaudid 1 mg/ml Syringe] MEDS 02/04/17 21:38 Stat 1 mg IVP ONCE STA Hydromorphone HCl/Pf [Dilaudid 2 mg/ml Syringe] MEDS 02/04/17 19:58 Discontinued 2 mg .ROUTE .STK-MED ONE Promethazine HCl [Phenergan 25 mg/ml Vial] MEDS 02/04/17 19:57 Discontinued 25 mg .ROUTE .STK-MED ONE Promethazine HCl [Phenergan 25 mg/ml Vial] 25 mg MEDS 02/04/17 19:51 Discontinued 0.9 % Sodium Chloride [Sodium Chloride] 50 ml IV ONCE Sodium Chloride 0.9% [Sodium Chloride] 1,000 ml MEDS 02/04/17 19:[address] ABDOMEN/PELVIS WO CONTRAST Stat RADS 02/04/17 19:51 Completed Medications Generic Name Dose Route Start Last Admin Trade Name Freq PRN Reason Stop Dose Admin Sodium Chloride 1 syr 02/04/17 19:50 02/04/17 20:16 Saline Flush IVF 1 syr PRN PRN Administration To flush IV Discontinued Medications Generic Name Dose Route Start Last Admin Trade Name Freq PRN Reason Stop Dose Admin Hydromorphone HCl 1 mg 02/04/17 19:51 02/04/17 20:18 Dilaudid 1 Mg/Ml Syringe IVP 02/04/17 19:52 Not Given ONCE STA Sodium Chloride 1,000 mls @ 1,000 mls/hr 02/04/17 19:50 02/04/17 20:08 Sodium Chloride IV 02/04/17 20:49 1,000 mls/hr BOLUS STA Administration Promethazine HCl 25 mg/ Sodium 51 mls @ 75 mls/hr 02/04/17 19:51 02/04/17 20: 10 Chloride IV 02/04/17 20:31 75 mls/hr ONCE STA Administration Vital Signs: Temp Pulse Resp BP Pulse Ox 02/04/17 19:39 99.6 F 93 H 20 161/92 H 98 Departure - Departure Time of Disposition: 21:42 Disposition: HOME SELF-CARE Discharge Problem: Vomiting Instructions: Acute Nausea and Vomiting (ED) Condition: Good Pt referred to PMD for follow-up: Yes Additional Instructions: phenergan 25mg q 4hrs prn vomiting #4--clear liquid and advance Allergies/Adverse Reactions: Allergies aspirin Adverse Reaction (Verified 01/03/17 04:15) cephalexin monohydrate [From Keflex] Adverse Reaction (Verified 01/03/17 04:15) clarithromycin [From Biaxin] Adverse Reaction (Verified 01/03/17 04:15) ketorolac [From Toradol] Adverse Reaction (Verified 01/03/17 04:15) leflunomide [From Arava] Adverse Reaction (Verified 01/03/17 04:15) NSAIDS (Non-Steroidal Anti-Inflamma Adverse Reaction (Verified 01/03/17 04:15) Penicillins Adverse Reaction (Verified 01/03/17 04:15) radioactive dye for stress test Adverse Reaction (Uncoded 01/03/17 04:15) Home Medications: Ambulatory Orders Diazepam [Valium] 10 mg PO TID PRN 09/25/13 Clonidine HCl [Catapres] 0.1 mg PO TID 08/17/14 Lisinopril [Zestril] 40 mg PO BID 11/03/14 Metoprolol Tartrate [Lopressor] 50 mg PO BID 12/11/14 Furosemide [Lasix Tab] 40 mg PO DAILY PRN 10/02/15 Warfarin Sodium [Coumadin] 10 mg PO EVERY OTHER DAY 12/19/15 Oxycodone HCl [Oxycodone] 10 mg PO Q6H PRN 02/15/17 Warfarin Sodium [Coumadin] 7.5 mg PO EVERY OTHER DAY 08/01/16 Amlodipine Besylate [Norvasc] 10 mg PO DAILY 09/21/16 Disposition Discussed With: Patient, Family
[2017-02-04 22:04] VITALS: BP 149/79
== END 2017-02-04 22:21 | disposition home or self-care (01) ==
LOC: ED 19:38
DX: R11.2 Nausea with vomiting, unspecified (principal); R19.7 Diarrhea, unspecified; R10.9 Unspecified abdominal pain; Z79.899 Other long term (current) drug therapy; Z79.01 Long term (current) use of anticoagulants
CPT/HCPCS: 36415; 80053; 81001; 82150; 82550; 82553; 83690; 84484; 85025; 85610; 85651; 87086; 87651; 87804; 87880; 93005; 93010; 96361; 96365; 96375; 96376; 99283

== ENCOUNTER 2017-02-06 23:29 | Emergency (ER) ==
[2017-02-06 23:29] VITALS: BMI 37.0
[2017-02-06 23:38] VITALS: BP 149/95; TEMP 100
[2017-02-06] MEDS ORDERED: PHENERGAN 25 MG/ML VIAL 25 MG in SODIUM CHLORIDE 50 ML IV STA (23:43)
[2017-02-06] MEDS ORDERED: SODIUM CHLORIDE 1,000 ML IV STA (23:43)
[2017-02-06] MEDS ORDERED: DILAUDID 2 MG/ML SYRINGE IVP STA (23:43)
[2017-02-07] MEDS ORDERED: SODIUM CHLORIDE 1,000 ML IV STA (00:07)
--- NOTE | 2017-02-07 00:23 | CT ---
EXAM: CT scan abdomen pelvis without contrast HISTORY: Abdominal pain vomiting COMPARISON: CT scan abdomen pelvis 02/04/2017 FINDINGS: Contiguous axial images were obtained through the abdomen and pelvis without contrast util izing 3-mm collimation. Sagittal and coronal reconstructions were imaged and reviewed.. The visuali zed lung bases are clear. Fatty infiltration is noted throughout the liver. There has been prior ch olecystectomy. . There is a duodenal diverticulum second portion. The pancreas spleen and adrenal gl ands have normal unenhanced CT appearance. The kidneys are morphologically normal. There has been p rior hysterectomy. There is diverticulosis without diverticulitis. There is a normal appendix. The re is no free fluid.. Bone windows reveals no evidence of lytic or blastic lesions. IMPRESSION: Status post cholecystectomy and hysterectomy. ASVD without aneurysm. Diverticulosis without diverticulitis. No evidence of free fluid or inflammatory changes. Fatty liver.
[2017-02-07] MEDS ORDERED: DILAUDID 2 MG/ML SYRINGE IVP PRN (00:51)
[2017-02-07] MEDS ORDERED: PHENERGAN 25 MG/ML VIAL ONE (01:07)
--- NOTE | 2017-02-07 02:46 | ED.PDOC ---
Procedures - IV/Art Line Insertion Location: Rt Thumb Type of Line: Peripheral IV Invasive Line/IV Catheter Gauge: 24 Number of Attempts: 1 Blood Return Positive: Yes Invasive Line/IV Flushes Without Difficulty: Yes Conscious Sedation - Pre-op Assessment Weight: 216 lb Surgical History: pacemaker 04/24/15--hemorrhoid--left knee--gall bladder-- tonsils--tubal-- pulmonay emboli --HYSTERECTOMY 12/02/15. PACEMAKER REVISAL SEPTEMBER 2016 - Medical History Past Medical History: Hypertension, Anemia, High Lipids, SD, CHF, A-FIb, GERD, Kidney Stones, Kidney Disease, Anxiety, Migraines, Arthritis, CAD Other History: recurrent shingles, ecoli with sepsis, Stiff Heart Ds.
[2017-02-07 02:48] LABS: BASOPHILS # (AUTO) 0.1 K/uL (0-0.2); BASOPHILS % (AUTO) 0.8 % (0.0-3.0); EOSINOPHILS # (AUTO) 0.1 K/ul (0.0-0.7); EOSINOPHILS % (AUTO) 2.2 % (0.0-7.0); HEMATOCRIT 38.9 % (37.0-47.0); HEMOGLOBIN 13.3 g/dl (12.0-16.0); IMMATURE GRANULOCYTE % (AUTO) 0.3 % (0.0-5.0); LYMPHOCYTES # (AUTO) 2.6 K/uL (0.60-3.4); LYMPHOCYTES % (AUTO) 41.5 (10.0-50.0); MEAN CORPUSCULAR HEMOGLOBIN 30.2 pg (27.0-31.0); MEAN CORPUSCULAR HGB CONC 34.2 (31.8-35.4); MEAN CORPUSCULAR VOLUME 88.2 fl (81.0-99.0); MONOCYTES # (AUTO) 0.4 K/uL (0.4-2.0); MONOCYTES % (AUTO) 6.4 (0-10); NEUTROPHILS % (AUTO) 48.8; PLATELET COUNT 238 10^3/uL (140-440); RED BLOOD COUNT 4.41 10^6/ul (4.20-5.40); WHITE BLOOD COUNT 6.24 K/ul (4.6-10.2)
[2017-02-07 03:05] LABS: ADD URINE MICROSCOPIC NO; BILIRUBIN,URINE Negative (NEGATIVE); KETONES,URINE Negative (NEGATIVE); LEUKOCYTE ESTERASE ,URINE Negative (NEGATIVE); NITRITE,URINE Negative (NEGATIVE); PROTEIN,URINE Negative (NEGATIVE); URINE, BLOOD Negative (NEGATIVE)
[2017-02-07 03:09] LABS: ALBUMIN 3.7 g/dL (3.4-5.0); ALBUMIN/GLOBULIN RATIO 1.06; ANION GAP 14.2; BILIRUBIN,TOTAL 0.35 mg/dL (0.00-1.20); BUN/CREATININE RATIO 15.38; CALCIUM 9.2 mg/dL (8.2-10.2); CREATININE 0.91 mg/dL (0.60-1.30); POTASSIUM 3.2 mmol/L (3.5-5.10); TOTAL PROTEIN 7.2 g/dL (6.4-8.2)
[2017-02-07 03:16] LABS: FLU INTERNAL QC INTERNAL QC VALID; RAPID FLU A NEGATIVE (NEGATIVE); RAPID FLU B NEGATIVE (NEGATIVE)
[2017-02-07 03:18] LABS: TROPONIN I 0.014 ng/ml (0.0000-0.4000)
[2017-02-07 03:31] LABS: ERYTHROCYTE SEDIMENTATION RATE 18 mm/hr (0-20); ESR INTERNAL QC INTERNAL QC VALID
[2017-02-07] MEDS ORDERED: DILAUDID 2 MG/ML SYRINGE IVP STA (03:41)
[2017-02-07] MEDS ORDERED: K-DUR PO STA (05:18)
--- NOTE | 2017-02-07 05:22 | ED.PDOC ---
General ED Provider: Dr. EVANGELISTA PATE-ER Chief Complaint: Nausea/Vomiting Stated Complaint: im throwing up and my belly hurts--several in my family have this Time Seen by Physician: 22:35 Mode of Arrival: Walk-In Information Source: Patient Exam Limitations: No limitations Nursing and Triage Documentation Reviewed and Agree: Yes GI Complaint Exam - Vomiting/Diarrhea Complaint/Exam Onset/Duration: 3 days Symptoms Are: Still present Initial Severity: Mild Current Severity: Mild Character of Vomiting: Reports: Non-bilious Character of Diarrhea: Reports: Watery Aggravating: Reports: None Alleviating: Reports: None Associated Signs and Symptoms: Reports: Abdominal pain, Cramping. Denies: Dizziness, Light-headedness, Melena, Hematemesis, Fever Use of Oral Contraceptives: No Use of Depoprovera: No Compliant With Contraceptive Use: No Non-GI Risk Factors: Reports: None Abdominal Findings: Present: None Kussmaul Respirations Present: No Differential Diagnoses: Dehydration, Viral Gastroenteritis, Bacterial Gastroenteritis, UTI Review of Systems - Review Of Systems Constitutional: Reports: No symptoms Eyes: Reports: No symptoms Ears, Nose, Mouth, Throat: Reports: No symptoms Respiratory: Reports: No symptoms Cardiac: Reports: No symptoms GI: Reports: Abdominal pain, Diarrhea, Nausea, Vomiting : Reports: No symptoms Musculoskeletal: Reports: No symptoms Skin: Reports: No symptoms Neurological: Reports: No symptoms Endocrine: Reports: No symptoms Hematologic/Lymphatic: Reports: No symptoms All Other Systems: Reviewed and Negative Past Medical History - Past Medical History Previously Healthy: No Endocrine: Reports: Dyslipidemia, Other (recurrent shingles, ) Cardiovascular: Reports: CAD, [place], Hypertension, CHF, A-Fib, Other (Stiff Heart Ds.) Respiratory: Reports: PE (pulmonay emboli) Hematological: Reports: Anemia, Other (PE on coumadine) Gastrointestinal: Reports: GERD Genitourinary: Reports: UTI (ecoli with sepsis), Kidney stones, CKD, Other ( ecoli with sepsis) Neuro/Psych: Reports: Migraine, Seizure, Anxiety, Other (recurrent shingles,) Musculoskeletal: Reports: Arthritis, Back Pain (PATIENT GOES TO PAIN MANAGEMENT) Cancer: Reports: None Last Menstrual Period: hyst 11/28 Other Pertinent Past Medical History: recurrent shingles, ecoli with sepsis - Surgical History General Surgical History: Reports: Hysterectomy (HYSTERECTOMY 12/02/15), Tubal ligation, , Cholecystectomy, Tonsillectomy, Pacemaker (pacemaker ;PACEMAKER REVISAL SEPTEMBER 2016), Orthopedic (left lateral release left knee), Other (esophageal dilation, hemorrhoidectomy) - Family History Family History: Reports: Unknown - Social History Smoking Status: Never smoker Hx Substance Use: No (frequent ER visits) Alcohol Screening: None - Immunizations Tetanus Shot up to Date: Yes Physical Exam - Physical Exam Appearance: Well-appearing, No pain distress, Well-nourished Pain Distress: Mild Eyes: [place], EOMI, Conjunctiva clear ENT: Ears normal, Nose normal, Oropharynx normal Neck: Supple Respiratory: Airway patent, Breath sounds clear, Breath sounds equal, Respirations nonlabored Cardiovascular: RRR, Pulses normal, No rub, No murmur GI/: Soft, Nontender, No masses, Bowel sounds normal, No Organomegaly Musculoskeletal: Normal strength, ROM intact, No edema, No calf tenderness Skin: Warm, Dry, Normal color Neurological: Sensation intact, Motor intact, Reflexes intact, Cranial nerves intact, Alert, Oriented Psychiatric: Affect appropriate, Mood appropriate Interpretation - Radiology Interpretation Radiology Interpretation By: Radiologist Radiology Results: Negative Exam Interpreted: CT Scan - EKG Interpretation Time of EKG #1: 23:50 Rate: Normal Rhythm: Sinus Ectopy: None [place]: NL ST Segment: Normal Re-Evaluation - Re-Evaluation Time of Re-Evaluation: 05:23 Status: Improved Vital Signs Stable: Yes Pain Level: 1 Appearance: NAD Lungs: Clear Skin: Warm and Dry Neuro: Alert and Oriented X3 CV: RRR Critical Care Note - Critical Care Note Total Time (mins): 0 Course - Course Hematology/Chemistry: 02/07/17 02:39 02/07/17 02:39 Orders, Labs, Meds: Lab Review 02/07/17 02/07/17 02/07/17 00:53 00:53 02:39 WBC 6.24 RBC 4.41 Hgb 13.3 Hct 38.9 MCV 88.2 MCH 30.2 MCHC 34.2 RDW Coeff of [place] 13.5 Plt Count 238 Immature Gran % (Auto) 0.3 Neut % (Auto) 48.8 Lymph % (Auto) 41.5 [place] % (Auto) 6.4 Eos % (Auto) 2.2 Baso % (Auto) 0.8 Immature Gran # (Auto) 0.0 Neut # 3.0 Lymph # 2.6 [place] # 0.4 Eos # 0.1 Baso # 0.1 ESR Sodium Potassium Chloride Carbon Dioxide Anion Gap BUN Creatinine Estimated GFR (MDRD) BUN/Creatinine Ratio Glucose Calcium Total Bilirubin AST ALT Alkaline Phosphatase Total Creatine Kinase Troponin I Total Protein Albumin Globulin Albumin/Globulin Ratio Amylase Lipase Urine Color Yellow Urine Clarity Clear Urine pH 6.0 Ur Specific [place] 1.020 Urine Protein Negative Urine Glucose (UA) Negative Urine Ketones Negative Urine Blood Negative Urine Nitrite Negative Urine Bilirubin Negative Urine Urobilinogen 1.0 Ur Leukocyte Esterase Negative Influenza A (Rapid) Negative Influenza B (Rapid) Negative 02/07/17 02/07/17 02/07/17 02:39 02:39 02:39 WBC RBC Hgb Hct MCV MCH MCHC RDW Coeff of [place] Plt Count Immature Gran % (Auto) Neut % (Auto) Lymph % (Auto) [place] % (Auto) Eos % (Auto) Baso % (Auto) Immature Gran # (Auto) Neut # Lymph # [place] # Eos # Baso # ESR 18 Sodium 144 Potassium 3.2 L Chloride 108 H Carbon Dioxide 25 Anion Gap 14.2 BUN 14 Creatinine 0.91 Estimated GFR (MDRD) 64.00 BUN/Creatinine Ratio 15.38 Glucose 102 Calcium 9.2 Total Bilirubin 0.35 AST 20 ALT 19 Alkaline Phosphatase 70 Total Creatine Kinase 56 Troponin I 0.0140 Total Protein 7.2 Albumin 3.7 Globulin 3.5 Albumin/Globulin Ratio 1.06 Amylase 39 Lipase 34 Urine Color Urine Clarity Urine pH Ur Specific [place] Urine Protein Urine Glucose (UA) Urine Ketones Urine Blood Urine Nitrite Urine Bilirubin Urine Urobilinogen Ur Leukocyte Esterase Influenza A (Rapid) Influenza B (Rapid) Orders Category Date Time Status EKG-(ED ONLY) Stat CARDIO 02/06/17 23:48 Completed IV [ED IV/MEDIPORT/POWERPORT] .ONCE EMERGENCY 02/06/17 23:42 Active AMYLASE Stat LAB 02/06/17 23:41 Completed CBC W/ AUTO DIFF Stat LAB 02/06/17 23:41 Completed COMPREHENSIVE METABOLIC PANEL Stat LAB 02/06/17 23:41 Completed CREATINE KINASE Stat LAB 02/06/17 23:42 Completed ESR Stat LAB 02/06/17 23:42 Completed LIPASE Stat LAB 02/06/17 23:42 Completed MOLECULAR GROUP A STREP Stat LAB 02/07/17 00:53 Results PT WITH INR Stat LAB 02/07/17 05:19 Ordered RAPID FLU A/B Stat LAB 02/07/17 00:53 Completed STREP SCREEN Stat LAB 02/07/17 00:53 Results TROPONIN I Stat LAB 02/06/17 23:42 Completed URINALYSIS C & S IF INDICATED Stat LAB 02/07/17 00:53 Completed 0.9 % Sodium Chloride [Saline Flush] MEDS 02/06/17 23:42 Ordered 1 syr IVF PRN PRN Hydromorphone HCl/Pf [Dilaudid 2 mg/ml Syringe] MEDS 02/06/17 23:43 Discontinued 1 mg IVP ONCE STA Hydromorphone HCl/Pf [Dilaudid 2 mg/ml Syringe] MEDS 02/07/17 00:51 Ordered 1 mg IVP Q2HR PRN Hydromorphone HCl/Pf [Dilaudid 2 mg/ml Syringe] MEDS 02/07/17 03:41 Discontinued 2 mg IVP ONCE STA Potassium Chloride [K-Dur] MEDS 02/07/17 05:18 Discontinued 40 meq PO ONCE STA Promethazine HCl [Phenergan 25 mg/ml Vial] MEDS 02/07/17 01:07 Discontinued 25 mg .ROUTE .STK-MED ONE Promethazine HCl [Phenergan 25 mg/ml Vial] 25 mg MEDS 02/06/17 23:43 Discontinued 0.9 % Sodium Chloride [Sodium Chloride] 50 ml IV ONCE Sodium Chloride 0.9% [Sodium Chloride] 1,000 ml MEDS 02/06/17 23:43 Discontinued IV BOLUS Sodium Chloride 0.9% [Sodium Chloride] 1,000 ml MEDS 02/07/17 00:[address] ABDOMEN/PELVIS WO CONTRAST Stat RADS 02/06/17 23:42 Completed Medications Generic Name Dose Route Start Last Admin Trade Name Freq PRN Reason Stop Dose Admin Hydromorphone HCl 1 mg 02/07/17 00:51 Dilaudid 2 Mg/Ml Syringe IVP Q2HR PRN Abdominal Pain Sodium Chloride 1 syr 02/06/17 23:42 02/07/17 03:01 Saline Flush IVF 1 syr PRN PRN Administration To flush IV Discontinued Medications Generic Name Dose Route Start Last Admin Trade Name Freq PRN Reason Stop Dose Admin Hydromorphone HCl 1 mg 02/06/17 23:43 02/07/17 01:14 Dilaudid 2 Mg/Ml Syringe IVP 02/06/17 23:44 1 mg ONCE STA Administration Hydromorphone HCl 2 mg 02/07/17 03:41 02/07/17 04:09 Dilaudid 2 Mg/Ml Syringe IVP 02/07/17 03:42 1 mg ONCE STA Administration Promethazine HCl 25 mg/ Sodium 51 mls @ 75 mls/hr 02/06/17 23:43 02/07/17 01: 15 Chloride IV 02/07/17 00:23 75 mls/hr ONCE STA Administration Sodium Chloride 1,000 mls @ 1,000 mls/hr 02/06/17 23:43 02/07/17 03:40 Sodium Chloride IV 02/07/17 00:07 Not Given BOLUS STA Sodium Chloride 1,000 mls @ 250 mls/hr 02/07/17 00:07 02/07/17 03:40 Sodium Chloride IV 02/07/17 03:42 250 mls/hr BOLUS STA Administration Potassium Chloride 40 meq 02/07/17 05:18 K-Dur PO 02/07/17 05:19 ONCE STA Vital Signs: Temp Pulse Resp BP Pulse Ox 02/06/17 23:30 100 F H 85 20 149/95 H 97 Departure - Departure Time of Disposition: 05:23 Disposition: HOME SELF-CARE Discharge Problem: Gastroenteritis Instructions: Gastroenteritis (ED) Condition: Good Pt referred to PMD for follow-up: Yes Additional Instructions: f/u with pcp if symptoms persist Allergies/Adverse Reactions: Allergies aspirin Adverse Reaction (Verified 02/06/17 23:37) cephalexin monohydrate [From Keflex] Adverse Reaction (Verified 02/06/17 23:37) clarithromycin [From Biaxin] Adverse Reaction (Verified 02/06/17 23:37) ketorolac [From Toradol] Adverse Reaction (Verified 02/06/17 23:37) leflunomide [From Arava] Adverse Reaction (Verified 02/06/17 23:37) NSAIDS (Non-Steroidal Anti-Inflamma Adverse Reaction (Verified 02/06/17 23:37) Penicillins Adverse Reaction (Verified 02/06/17 23:37) radioactive dye for stress test Adverse Reaction (Uncoded 02/06/17 23:37) Home Medications: Ambulatory Orders Diazepam [Valium] 10 mg PO TID PRN 09/25/13 Clonidine HCl [Catapres] 0.1 mg PO TID 08/17/14 Lisinopril [Zestril] 40 mg PO BID 11/03/14 Metoprolol Tartrate [Lopressor] 50 mg PO BID 12/11/14 Furosemide [Lasix Tab] 40 mg PO DAILY PRN 10/02/15 Warfarin Sodium [Coumadin] 10 mg PO EVERY OTHER DAY 12/19/15 Oxycodone HCl [Oxycodone] 10 mg PO Q6H PRN 04/29/16 Warfarin Sodium [Coumadin] 7.5 mg PO EVERY OTHER DAY 08/01/16 Amlodipine Besylate [Norvasc] 10 mg PO DAILY 09/21/16 Disposition Discussed With: Patient, Family
[2017-02-07 06:04] LABS: PROTHROMBIN TIME 24.6 SEC (9.3-11.0)
== END 2017-02-07 06:00 | disposition home or self-care (01) ==
LOC: ED 23:29
DX: K52.9 Noninfective gastroenteritis and colitis, unspecified (principal); E78.5 Hyperlipidemia, unspecified; I25.10 Atherosclerotic heart disease of native coronary artery without angina pectoris; I10 Essential (primary) hypertension; I50.9 Heart failure, unspecified; I48.91 Unspecified atrial fibrillation; N18.9 Chronic kidney disease, unspecified; D63.1 Anemia in chronic kidney disease; I25.2 Old myocardial infarction; Z79.899 Other long term (current) drug therapy; Z79.01 Long term (current) use of anticoagulants; Z86.711 Personal history of pulmonary embolism; Z87.442 Personal history of urinary calculi; Z87.440 Personal history of urinary (tract) infections; Z95.0 Presence of cardiac pacemaker
CPT/HCPCS: 36415; 80053; 81001; 82150; 82550; 83690; 84484; 85025; 85610; 85651; 87651; 87804; 87880; 93005; 93010; 96361; 96365; 96374; 96375; 96376; 99283

== ENCOUNTER 2017-03-13 19:06 | Outpatient (CLI) ==
[2012-09-14 05:37] VITALS: TEMP 97.6
== END 2017-03-13 19:07 | disposition short-term general hospital (02) ==
LOC: AMBL 19:06
PROVIDERS: ATTEND Emergency Medicine
DX: T82.897A Other specified complication of cardiac prosthetic devices, implants and grafts, initial encounter (principal); R07.89 Other chest pain; Z95.0 Presence of cardiac pacemaker

== ENCOUNTER 2017-03-20 19:54 | Emergency (ER) ==
[2017-03-20 20:03] VITALS: BP 125/86; TEMP 99.5; BMI 37.4
--- NOTE | 2017-03-20 21:14 | ED.PDOC ---
General ED Provider: Dr. CLEMENTE BERNAL Chief Complaint: GI Bleed Stated Complaint: Patient been having rectal bleeding, started today. was in bowl, and tissues Time Seen by Physician: 21:12 Mode of Arrival: Walk-In Information Source: Patient Primary Care Provider: JAIDEN VINCENT Nursing and Triage Documentation Reviewed and Agree: Yes Reviewed sepsis parameters & appropriate labs ordered?: No System Inflammatory Response Syndrome: Not Applicable Sepsis Protocol: For patient's 13 years and over: Temp is 96.8 and below OR 101 and greater Pulse >90 BPM Resp >20/minute Acutely Altered Mental Status Are patient's symptoms suggestive of a new infection, such as: -Pneumonia -Skin, Soft Tissue -Endocarditis -UTI -Bone, Joint Infection -Implantable Device -Acute Abdominal Infection -Wound Infection -Meningitis -Blood Stream Catheter Infection -Unknown GI Complaint Exam - GI Bleed Complaint/Exam Patient Complains of: Reports: Rectal bleeding Symptoms Are: Resolved Episodes Lasting: Hours Severity: Reports: Blood-streaked stool, Bright red blood-rectum Location of Pain: Reports: None Aggravating: Reports: Bowel movement Alleviating: Reports: None Associated Signs and Symptoms: Denies: Back Pain, Pallor, Dizziness, Weakness, Syncope, Constipation, Nausea, Rectal pain, Bruising, Weight loss, Recent abnormal coags Related History: Reports: Similar episode GI Bleed Risk Factors: Reports: None Recent Colonoscopy: Yes (august 2016) Recent EGD: No Related Surgical History: Reports: None Abdominal Findings: Absent: Pulsatile mass, Abdominal distention, Unequal femoral pulses Differential Diagnoses: Hemorrhoids Review of Systems - Review Of Systems Constitutional: Reports: No symptoms Eyes: Reports: No symptoms Ears, Nose, Mouth, Throat: Reports: No symptoms Respiratory: Reports: No symptoms Cardiac: Reports: No symptoms GI: Reports: Blood streaked bowels : Reports: No symptoms Musculoskeletal: Reports: No symptoms Skin: Reports: No symptoms Neurological: Reports: No symptoms Endocrine: Reports: No symptoms Hematologic/Lymphatic: Reports: No symptoms All Other Systems: Reviewed and Negative Past Medical History - Past Medical History Previously Healthy: No Endocrine: Reports: Dyslipidemia, Other (recurrent shingles, ) Cardiovascular: Reports: CAD, OR, Hypertension, CHF, A-Fib, Other (Stiff Heart Ds.) Respiratory: Reports: PE (pulmonay emboli) Hematological: Reports: Anemia, Other (PE on coumadine) Gastrointestinal: Reports: GERD Genitourinary: Reports: UTI (ecoli with sepsis), Kidney stones, CKD, Other ( ecoli with sepsis) Neuro/Psych: Reports: Migraine, Seizure, Anxiety, Other (recurrent shingles,) Musculoskeletal: Reports: Arthritis, Back Pain (PATIENT GOES TO PAIN MANAGEMENT) Cancer: Reports: None Last Menstrual Period: 2015 Other Pertinent Past Medical History: recurrent shingles, ecoli with sepsis - Surgical History General Surgical History: Reports: Hysterectomy (HYSTERECTOMY 12/02/15), Tubal ligation, , Cholecystectomy, Tonsillectomy, Pacemaker (pacemaker ;PACEMAKER REVISAL SEPTEMBER 2016), Orthopedic (left lateral release left knee), Other (esophageal dilation, hemorrhoidectomy) - Family History Family History: Reports: Unknown - Social History Smoking Status: Never smoker Hx Substance Use: No (frequent ER visits) Alcohol Screening: None - Immunizations Tetanus Shot up to Date: Yes Physical Exam - Physical Exam Appearance: Well-appearing, No pain distress, Well-nourished Eyes: [place], EOMI, Conjunctiva clear ENT: Ears normal, Nose normal, Oropharynx normal Respiratory: Airway patent, Breath sounds clear, Breath sounds equal, Respirations nonlabored Cardiovascular: RRR, Pulses normal, No rub, No murmur GI/: Soft, Nontender, No masses, Bowel sounds normal, No Organomegaly Musculoskeletal: Normal strength, ROM intact, No edema, No calf tenderness Skin: Warm, Dry, Normal color Neurological: Sensation intact, Motor intact, Reflexes intact, Cranial nerves intact, Alert, Oriented Psychiatric: Affect appropriate, Mood appropriate Critical Care Note - Critical Care Note Total Time (mins): 10 Course - Course Hematology/Chemistry: 03/20/17 20:20 03/20/17 20:20 Orders, Labs, Meds: Lab Review 03/20/17 03/20/17 03/20/17 20:20 20:20 20:20 WBC 7.51 RBC 4.25 Hgb 13.3 Hct 38.7 MCV 91.1 MCH 31.3 H MCHC 34.4 RDW Coeff of Carmel[place] 12.6 Plt Count 230 Immature Gran % (Auto) 0.3 Neut % (Auto) 59.7 Lymph % (Auto) 30.5 Moore % (Auto) 6.4 Eos % (Auto) 2.4 Baso % (Auto) 0.7 Immature Gran # (Auto) 0.0 Neut # 4.5 Lymph # 2.3 Moore # 0.5 Eos # 0.2 Baso # 0.1 PT 9.9 INR 0.97 Sodium 144 Potassium 3.9 Chloride 107 Carbon Dioxide 27 Anion Gap 13.9 BUN 11 Creatinine 1.06 Estimated GFR (MDRD) 54.00 BUN/Creatinine Ratio 10.37 Glucose 95 Calcium 9.7 Total Bilirubin 0.3 AST 17 ALT 17 Alkaline Phosphatase 78 Total Protein 7.4 Albumin 3.7 Globulin 3.7 Albumin/Globulin Ratio 1.00 Orders Category Date Time Status CBC W/ AUTO DIFF Stat LAB 03/20/17 20:20 Completed CMP [COMPREHENSIVE METABOLIC PANEL] Stat LAB 03/20/17 20:20 Completed PT WITH INR Stat LAB 03/20/17 20:20 Completed Vital Signs: Temp Pulse Resp BP Pulse Ox 03/20/17 19:55 99.5 F 63 20 125/86 95 Departure - Departure Time of Disposition: 21:15 Disposition: HOME SELF-CARE Discharge Problem: Rectal bleed Instructions: Diverticulosis (ED) Condition: Stable Pt referred to PMD for follow-up: Yes Additional Instructions: Needs f/u with GI and PMD If continues to bleed needs to come back Allergies/Adverse Reactions: Allergies aspirin Adverse Reaction (Verified 03/20/17 20:07) cephalexin monohydrate [From Keflex] Adverse Reaction (Verified 03/20/17 20:07) clarithromycin [From Biaxin] Adverse Reaction (Verified 03/20/17 20:07) ketorolac [From Toradol] Adverse Reaction (Verified 03/20/17 20:07) leflunomide [From Arava] Adverse Reaction (Verified 03/20/17 20:07) NSAIDS (Non-Steroidal Anti-Inflamma Adverse Reaction (Verified 03/20/17 20:07) Penicillins Adverse Reaction (Verified 03/20/17 20:07) radioactive dye for stress test Adverse Reaction (Uncoded 03/20/17 20:07) Home Medications: Ambulatory Orders Diazepam [Valium] 10 mg PO TID PRN 09/25/13 Clonidine HCl [Catapres] 0.1 mg PO TID 08/17/14 Lisinopril [Zestril] 40 mg PO BID 11/03/14 Metoprolol Tartrate [Lopressor] 50 mg PO BID 12/11/14 Furosemide [Lasix Tab] 40 mg PO DAILY PRN 10/02/15 Warfarin Sodium [Coumadin] 10 mg PO EVERY OTHER DAY 12/19/15 Oxycodone HCl [Oxycodone] 10 mg PO Q6H PRN 04/29/16 Warfarin Sodium [Coumadin] 7.5 mg PO EVERY OTHER DAY 08/01/16 Amlodipine Besylate [Norvasc] 10 mg PO DAILY 09/21/16 Disposition Discussed With: Patient
[2017-03-20] MEDS ORDERED: ZOFRAN 4 MG/2 ML IM STA (21:24)
== END 2017-03-20 21:50 | disposition home or self-care (01) ==
LOC: ED 19:54
DX: K62.5 Hemorrhage of anus and rectum (principal); Z79.01 Long term (current) use of anticoagulants; Z79.899 Other long term (current) drug therapy
CPT/HCPCS: 36415; 80053; 85025; 85610; 96372; 99283

== ENCOUNTER 2017-03-23 09:34 | Outpatient (CLI) ==
[2012-09-14 05:37] VITALS: TEMP 97.6
== END 2017-03-23 09:35 | disposition home or self-care (01) ==
LOC: LAB 09:34
PROVIDERS: ATTEND Internal Medicine Hematology & Oncology
DX: Z86.718 Personal history of other venous thrombosis and embolism (principal)
CPT/HCPCS: 36415; 85610

== ENCOUNTER 2017-04-16 12:35 | Outpatient (CLI) ==
[2012-09-14 05:37] VITALS: TEMP 97.6
== END 2017-04-16 12:36 | disposition home or self-care (01) ==
LOC: LAB 12:35
PROVIDERS: ATTEND Internal Medicine Hematology & Oncology
DX: Z51.81 Encounter for therapeutic drug level monitoring (principal); Z79.01 Long term (current) use of anticoagulants
CPT/HCPCS: 36415; 85610

== ENCOUNTER 2017-05-14 12:30 | Outpatient (CLI) ==
[2012-09-14 05:37] VITALS: TEMP 97.6
== END 2017-05-14 12:31 | disposition home or self-care (01) ==
LOC: LAB 12:30
PROVIDERS: ATTEND Internal Medicine Hematology & Oncology
DX: Z51.81 Encounter for therapeutic drug level monitoring (principal); Z79.01 Long term (current) use of anticoagulants
CPT/HCPCS: 36415; 85610

== ENCOUNTER 2017-05-27 12:30 | Outpatient (CLI) ==
[2012-09-14 05:37] VITALS: TEMP 97.6
== END 2017-05-27 12:31 | disposition home or self-care (01) ==
LOC: LAB 12:30
PROVIDERS: ATTEND Internal Medicine Hematology & Oncology
DX: Z51.81 Encounter for therapeutic drug level monitoring (principal); Z79.01 Long term (current) use of anticoagulants
CPT/HCPCS: 36415; 85610

== ENCOUNTER 2017-06-25 22:03 | Outpatient (CLI) ==
[2012-09-14 05:37] VITALS: TEMP 97.6
== END 2017-06-25 22:04 | disposition expired ==
LOC: AMBL 22:03
PROVIDERS: ATTEND Family Medicine